=== PATIENT | female | born 1945 | race Caucasian/White ===

== ENCOUNTER 2020-02-22 17:13 | Emergency (ER) | payer MEDICARE, SELFPAY ==
--- NOTE | ~2020-02-22 | XR_ITS ---
EXAMINATION: XR femur RT min 2V INDICATION: Right femur pain TECHNIQUE: Two views of the right femur are obtained on four radiographs. COMPARISON: None available FINDINGS: There is no fracture, dislocation, or subluxation. Bone alignment is normal. Mild osteoarth ritis is noted in the hip and knee. The soft tissues are unremarkable. IMPRESSION: 1. No acute osseous abnormality. Reviewed, dictated and finalized at location A.
--- NOTE | ~2020-02-22 | XR_ITS ---
EXAMINATION: XR hip RT 2V w AP pelvis INDICATION: Right hip pain TECHNIQUE: AP view of the pelvis and two views of the right hip are obtained. COMPARISON: None available FINDINGS: Bone alignment is normal. There is no fracture. Mild osteoarthritis is noted in the hips. T here are phleboliths in the pelvis. The soft tissues are otherwise unremarkable. Moderate lumbar spon dylosis is noted. IMPRESSION: 1. No acute osseous abnormality. Reviewed, dictated and finalized at location A.
--- NOTE | ~2020-02-22 | CT_ITS ---
EXAMINATION: CT hip RT wo con DATE: 02/22/2020 20:41 INDICATION: Right hip pain with flexion and weightbearing TECHNIQUE: Computed tomography (CT) of the right hip was performed without intravenous contrast. The dose-length product (DLP) was 671.76 mGy-cm. Automated exposure control and iterative reconstruction technique were employed. COMPARISON: 11/24/2017 FINDINGS: There is no fracture, dislocation, or subluxation. Bone alignment is normal. Mild lumbar sp ondylosis is noted. The soft tissues are unremarkable. IMPRESSION: 1. No acute osseous abnormality. Reviewed, dictated and finalized at location A.
[2020-02-22 17:27] VITALS: BP 135/78; PULSE 58; RESP 16; TEMP 36.7; O2SAT 96
--- NOTE | 2020-02-22 18:16 | ED.LOWEXIN ---
HPI - Extremity Injury (Lower) General Chief Complaint: Extremity Injury, Lower Stated Complaint: right hip pain Time Seen by Provider: 02/22/20 18:10 Source: patient Mode of arrival: ambulatory Limitations: no limitations History of Present Illness HPI Narrative: This patient is a 74 year old female who presents for evaluation of right hip/thigh pain. PAtient states she turned her body today and she felt a pop in her right hip. She has pain to right hip and into her right thigh. She also states she is unable to bear weight on that leg. She reports tingling to lateral 4 toes. She denies any other injuries. complaint: hip injury Related Data Home Medications Medication Instructions Recorded Confirmed levocetirizine 10 mg PO DAILY 08/28/19 08/28/19 multivitamin [Daily Multi-Vitamin] 1 tablet PO DAILY 08/28/19 08/28/19 oxybutynin chloride 5 mg PO BID 08/28/19 08/28/19 pantoprazole 40 mg PO QAM 08/28/19 08/28/19 Allergies Allergy/AdvReac Type Severity Reaction Status Date / Time codeine Allergy Unknown Vomiting Verified 02/22/20 17:34 Review of Systems Review of Systems: All systems reviewed & are unremarkable except as noted in HPI and below PMFSH Family History Family History (Updated 08/28/19 @ 13:00 by Bernarda Seo RN) Mother Diabetes mellitus Mother Cancer Other Family history of arthritis Hypertension Social History Social History Smoking status: Never smoker Tobacco type: cigarettes Second hand tobacco smoke exposure: Yes Alcohol intake: never Substance use: never Gender identity (if verbalized by the patient): Female Exam Const: General: no acute distress and alert Orientation/consciousness: patient oriented x3 HENMT: Head: normocephalic and atraumatic Eyes: EOM: EOMs intact bilaterally Neck: Neck: normal visual inspection Resp: Effort & Inspection: normal respiratory effort Skin: General skin exam: normal color Rashes: no rashes Neuro: General: patient oriented x3 and moves all extremities Extrem: Other: TTP right lateral hip, unable to actively range at right hip due to pain. strong pedal pulses. Charline to move foot and toes distally. good cap refill Course Reevaluation(s) Reevaluation #1: PAtient states her pain has improved. She reports laying she has no pain. On ambulation assessment , she is able to walk backwards with no pain. She has pain with lifting her foot. She states it feels muscular. She has full rom now actively. Date: 02/22/20 Time: 20:57 Vital Signs Vital signs: Vital Signs Temperature 98.1 F 02/22/20 17:27 Pulse Rate 58 L 02/22/20 17:27 Respiratory Rate 16 02/22/20 17:27 Blood Pressure 135/78 02/22/20 17:27 Pulse Oximetry 96 02/22/20 17:27 Temperature 98.1 F 02/22/20 17:27 Pulse Rate 55 L 02/22/20 19:34 Respiratory Rate 15 02/22/20 19:34 Blood Pressure 136/52 L 02/22/20 19:34 Pulse Oximetry 98 02/22/20 19:34 MDM - Extremity Injury (Lower) Imaging Data Radiologist's impression: ITS Impressions Femur X-Ray 02/22/20 19:05 IMPRESSION: 1. No acute osseous abnormality. Hip/Pelvis X-Ray 02/22/20 19:08 IMPRESSION: 1. No acute osseous abnormality. Hip CT 02/22/20 20:45 IMPRESSION: 1. No acute osseous abnormality. Discharge Plan Discharge Clinical Impression: Other sprain of right hip, initial encounter Patient Disposition: Home, Self-Care Condition: Stable Instructions: Antibiotic Form, Hip Sprain (ED), Hip Pain (ED), Hip Impingement (ED) Additional Instructions: Today you were assessed for right hip sprain. Use crutches as needed. Follow up with your primary care physician or your orthopedic surgeon this week. Prescriptions: New naproxen 500 mg tablet 500 mg PO BID PRN (Reason: pain) Qty: 14 RF: 0 cyclobenzaprine 5 mg tablet 5 mg PO TID PRN (Nichol
[2020-02-22] MEDS: ONDANSETRON INJ 4 MG/2 ML VIAL IV PUSH (18:42)
[2020-02-22] MEDS: MORPHINE SULFATE 4 MG/ML INJ IV PUSH (18:43)
--- NOTE | 2020-02-22 19:12 | PC.NURSE ---
Bedside report to MICHAEL Coyle, to continue care. Dr. Lr at bedside discussing plan of care.
[2020-02-22 19:34] VITALS: BP 136/52; PULSE 55; RESP 15; O2SAT 98
--- NOTE | 2020-02-22 19:35 | PC.NURSE ---
Assumed care of pt at this time. report from MICHAEL De Luna
[2020-02-22] MEDS: KETOROLAC 30 MG/ML VIAL (*BKC) IV PUSH (19:54)
[2020-02-22 21:10] VITALS: BP 142/76; PULSE 58; RESP 16; O2SAT 98
== END 2020-02-22 21:11 | disposition home or self-care (01) ==
PROVIDERS: Emergency Provider General Practice; PCP Nurse Practitioner Family
DX: S73.191A Other sprain of right hip, initial encounter (principal); Z77.22 Contact with and (suspected) exposure to environmental tobacco smoke (acute) (chronic); X58.XXXA Exposure to other specified factors, initial encounter
CPT/HCPCS: 73502; 73552; 73700; 96374; 96375; 99284; J1885; J2270; J2405; J3360

== ENCOUNTER 2020-07-18 10:38 | Outpatient (NON) | payer MEDICARE, SELFPAY ==
[2020-07-18 22:56] LABS: SARS-CoV-2 RNA PCR Negative
== END 2020-07-18 10:39 ==
PROVIDERS: PCP Nurse Practitioner Family; Visit Provider Nurse Practitioner Family
DX: Z20.828 Contact with and (suspected) exposure to other viral communicable diseases (principal); R41.3 Other amnesia; R19.7 Diarrhea, unspecified; R53.83 Other fatigue
CPT/HCPCS: 87635; C9803; U0003

== ENCOUNTER 2020-09-28 16:43 | Observation (INO) | payer MEDICARE, SELFPAY ==
[2020-09-28] VITALS (9 sets, daily range): BP systolic 106–139; BP diastolic 56–79; PULSE 48–63; RESP 13–18; TEMP 36.3; O2SAT 94–99; BMI 30.5; BMI 31.4
--- NOTE | ~2020-09-28 | XR_ITS ---
EXAMINATION: XR chest 2V DATE: 09/28/2020 17:38 INDICATION: Left chest and arm pain TECHNIQUE: PA and lateral views of the chest are obtained. COMPARISON: 08/28/2019 FINDINGS: The lungs are free of acute opacities. There is no pleural effusion or pneumothorax. The ca rdiomediastinal silhouette is normal. There is mild thoracic spondylosis. IMPRESSION: 1. No acute cardiopulmonary abnormality. Reviewed, dictated and finalized at location A. E PRESSER
--- NOTE | 2020-09-28 16:46 | ECG_ITS ---
Measurements Intervals [place] Rate: 58 P: 38 MI: 179 QRS: -2 QRSD: 110 T: 74 QT: 391 QTc: 386 Interpretive Statements SINUS BRADYCARDIA INTRAVENTRICULAR CONDUCTION DELAY DELAYED PRECORDIAL R/S TRANSITION BORDERLINE ST-T WAVE ABNORMALITY- HIGH LATERAL LEADS BASELINE ARTIFACT- I, III, AVR, AVL, AVF BORDERLINE ECG Electronically Signed On 09-29-2020 8:45:52 RAISE DRILLER by Stuart Austin D.O.
[2020-09-28 17:10] LABS: Basophils Percent Auto 0.4 % (0.2-1.2); Eosinophils Absolute Auto 0.2 K/mm3 (0-0.3); Hematocrit 39.9 % (37.0-47.0); Immature Granulocyte Absolute 0.02 K/mm3 (0.00-0.031); Immature Granulocyte Percent A 0.2 % (0-0.5); Lymphocytes Absolute Auto 1.85 K/mm3 (0.9-3.2); Lymphocytes Percent Auto 22.7 % (18.3-44.2); Mean Corpuscular HGB Conc 32.6 g/dl (32-36); Mean Corpuscular Hemoglobin 29.1 pg (26-34); Mean Corpuscular Volume 89.5 fl (80-100); Mean Platelet Volume 11.3 fl (7.4-10.4); Monocytes Absolute Auto 0.4 K/mm3 (0.1-0.6); Monocytes Percent Auto 5.3 % (2.6-8.5); Neutrophils Absolute Auto 5.7 K/mm3 (1.3-6.7); Neutrophils Percent Auto 69.4 % (45.5-73.1); Platelet Count Result 202 k/mm3 (150-375); Red Blood Count 4.46 M/mm3 (4.2-5.4); Red Cell Distribution Width 13.9 % (11.5-14.5); White Blood Count 8.1 K/mm3 (4.5-10.0)
[2020-09-28 17:19] LABS: INR 0.9; Prothrombin Time 12.5 Seconds (11.1-14.7)
[2020-09-28 17:22] LABS: Anion Gap 7 mmol/L (8-16); Blood Urea Nitrogen 28 mg/dL (7-17); Calcium 9.1 mg/dL (8.4-10.2); Carbon Dioxide 28 mmol/L (22-30); Chloride 105 mmol/L (98-107); Estimated CRCL calculation 53 ml/min; Estimated Glomerular Filt Rate > 60; Glucose 108 mg/dL (65-105); Potassium 3.8 mmol/L (3.4-5.0); Sodium 140 mmol/L (137-145)
[2020-09-28 17:33] LABS: Troponin I < 0.012 ng/mL (0.000-0.034)
--- NOTE | 2020-09-28 17:45 | ED.GENADULT ---
HPI - General Adult General Chief complaint: Chest Pain Stated complaint: CP Time Seen by Provider: 09/28/20 16:46 Source: patient Mode of arrival: ambulatory Limitations: no limitations History of Present Illness HPI narrative: HPI narrative: A 74 y/o female presents to the ED with c/o left sided CP that radiated down her arm at 2:30pm then eased. She states after 45 minutes she began feeling a pressure like sensation to the center of her chest and a sore sensation. She denies sharp chest pain with radiation at this time. Pt describes the CP presently as a pressure. She reports a PMHx of cardiac catheterization and coronary stent placement. Pt adds that the cardiac catheterization was 8 years ago in [place]. Pt denies SOB, diaphoresis, N/V. She is a former smoker. Pt is currently prescribed Lisinopril. 07/2019 Taken to component lab tech by Dr Mathew/Gilma for V2-V4 STEMI. Patient did not take aspirin nitro or any other medications prior to arrival. Related Data Home Medications Medication Instructions Recorded Confirmed levocetirizine 10 mg PO DAILY 08/28/19 08/28/19 oxybutynin chloride 5 mg PO BID 08/28/19 08/28/19 hydrochlorothiazide 09/28/20 Allergies Allergy/AdvReac Type Severity Reaction Status Date / Time codeine Allergy Unknown Vomiting Verified 09/28/20 16:50 Review of Systems Review of Systems: Narrative: CONSTITUTIONAL: Denies fever, chills, or sweats. EYES: Denies visual changes, redness, or discharge. ENT: Denies rhinorrhea, congestion, sore throat, or otalgia. CARDIOVASCULAR: Reports chest pain and pressure, denies palpitations, or edema. RESPIRATORY: Denies cough or dyspnea. GASTROINTESTINAL: Denies abdominal pain, nausea, vomiting, or diarrhea. GENITOURINARY: Denies dysuria or hematuria. SKIN: Denies rash or itching. MUSCULOSKELETAL: Denies back pain, joint pain, or myalgia. NEUROLOGIC: Denies headache, numbness, dizziness, or weakness. PSYCHIATRIC: Denies anxiety or depression. [facility] Past Medical History Medical History (Updated 09/28/20 @ 19:34 by Brennan Maya DO) Anemia Anxiety Arthritis Collar bone fracture CPAP (continuous positive airway pressure) dependence Depression Finger fracture, left GERD (gastroesophageal reflux disease) History of blood transfusion HTN (hypertension) Kidney stones Migraines Pancreatic cancer Pelvis fracture Pneumonia Post-menopausal Rib fracture Shingles Sleep apnea Ulcer Uterine fibroid UTI (urinary tract infection) Surgical History Surgical History History of arthroscopic knee surgery Bilateral History of cardiac catheterization History of cholecystectomy History of coronary artery stent placement History of hysterectomy History of nephrectomy History of pancreatic surgery Whipple History of tonsillectomy History of tubal ligation Hx of breast reduction, elective Hx of prior ablation treatment For heart arrhythmia Family History Family History (Updated 08/28/19 @ 13:00 by Bernarda Seo RN) Mother Diabetes mellitus Mother Cancer Other Family history of arthritis Hypertension Social History Social History Smoking status: Never smoker Tobacco type: cigarettes Second hand tobacco smoke exposure: Yes Alcohol intake: never Substance use: never Gender identity (if verbalized by the patient): Female Exam Narrative: Exam Narrative: GENERAL: Well-appearing, well-nourished, and in no acute distress. Patient smiling and talking normally without signs of distress or discomfort. HEAD: Normocephalic, atraumatic. EYES: PERRLA and EOMI. ENT: Nares clear, no rhinorrhea or epistaxis. Mucous membranes moist. Oropharynx without tonsillar hypertrophy exudate or other lesions. Bilateral TMs pearly paulino nonbulging NECK: Supple. No adenopathy or masses. CHEST: Reports partial reproduction of chest discomfort with palpa
--- NOTE | 2020-09-28 19:25 | PM.IMHP ---
H&P: HPI History of Present Illness Date/Time: 09/28/20 19:25 Chief Complaint: Left arm pain, chest pain Narrative: Olinda García is a 74 year old female with past medical history of takotsubo syndrome, anxiety, history of stage I pancreatic cancer status post resection, hypertension who presents to the ED with complaints of left upper extremity pain and chest pressure. Patient was sitting at home watching TV when all of sudden she felt left arm pain and subsequently chest pressure with the whole episode lasting 4-5 minutes. Patient never had this left arm pain before and was concerned about her heart. Patient has similar presentation last year 08/28/2019 but that time presented as STEMI and had a cardiac catheterization by Dr. Piedra. She did not have left arm pain that time. EKG at that time showed Q-waves in V1 to V4 with ST elevations. Left Heart Catheterization showed large left main coronary, left circumflex artery had 20% stenosis, right coronary artery is large and dominant. LV angiogram showed stress-induced cardiomyopathy with apical ballooning. Patient was diagnosed with stress-induced cardiomyopathy and minimal coronary irregularities. She was started on GENEVIEVE-inhibitor and beta-gerald. The beta-gerald was stopped because of bradycardia. That episode was attributed to severe stress from losing a contract at work, working for [employer]. Of note, patient states she also had a stent placed 7-8 years ago however there was no stent seen on the catheterization and is not on any medications for coronary disease, I believe she may have had a catheterization without stent. Currently patient has lot of stress because she was laid off August 30, 2020 as her job went remote. She has a very distant smoking history when she was age 16 for 5 months. Patient states even last year she never felt physically stressed no physical symptoms of sweats, tachycardia, palpitations, anxiety, dyspnea. She thinks maybe her body felt stress with a takotsubo syndrome diagnosis. She does meditate which helps her anxiety has been skipping it over last 2 months. She currently lives with her son for last 2 years. She is very active still drives. Patient has a history of pancreatic cancer that was stage I that was treated with resection only. In the ED: Troponin negative, EKG showed normal sinus rhythm. Cardiology recommends admitting for observation. Patient will be observed in the chest pain center. Review of Systems Review of Systems: Narrative: Constitutional: No Fever, No Chills, No Night Sweats. Endorses generalized ache. ENT/Mouth: No Hearing Changes, No Ear Pain, No Nasal Congestion, No Sinus Pain, No Hoarseness, No sore throat, No Rhinorrhea, No Swallowing Difficulty Eyes: No Eye Pain, No Redness, No Vision Changes Cardiovascular: No Palpitations, No Dyspnea on Exertion, No Orthopnea, No Claudication, No Edema. Chest soreness and pressure. Respiratory: No Cough, No Sputum, No Wheezing, No Shortness of Breath Gastrointestinal: No Nausea, No Vomiting, No Diarrhea, No Constipation, No Abdominal Pain, No Heartburn, No Hematochezia, No Melena Genitourinary: No Dysuria, No Urinary Frequency, No Hematuria, No Urinary Incontinence, No Urgency Musculoskeletal: No Arthralgias, No Myalgias, No Joint Swelling, No Joint Stiffness, No Back Pain. Left arm pain which has subsided. Skin: No Skin Lesions, No Pruritis, No Hair Changes Neuro: No Weakness, No Numbness, No Paresthesias, No Loss of Consciousness, No Syncope, No Dizziness, No Headache. Psych: No Anxiety/Panic, No Depression, No Insomnia. Stress from loss of work. Heme: No Bruising, No Bleeding Lymph: No Adenopathy Endocrine: No Polyuria, No Polydipsia, No Temperature Intolerance PMFSH Past Medical History Medical History Anemia Anxiety Arthritis Collar bone fracture CPAP (continuous positive airway pressure) dependence Depression F
[2020-09-28 20:16] LABS: Troponin I < 0.012 ng/mL (0.000-0.034)
[2020-09-28 23:16] LABS: Troponin I < 0.012 ng/mL (0.000-0.034)
[2020-09-29] VITALS (10 sets, daily range): BP systolic 107–124; BP diastolic 59–70; PULSE 50–88; RESP 20; TEMP 36.5; O2SAT 96–99
--- NOTE | 2020-09-29 | ECHO_ITS ---
Patient Info Name: Olinda Reza [facility] Age: 74 years : 1945 Gender: Female Ht: 66 in Wt: 194 lbs BSA: 2.05 m2 HR: 58 bpm BP: 124 / 59 mmHg Technical Quality: Good Exam Date: 09/29/2020 11:03 AM Exam Location: [facility] Pulmonary Exam Room: 204 Patient Status: Inpatient Admit Date: 09/28/2020 Staff Ordering Physician: Jennifer Piedra MD Clip Loading Machine Adjuster: Hien Martin RDCS Attending Provider: Brennan Maya DO Referring Physician: Dorothea LEO; Exam Type: CA echo doppler color flow Study Info Indications - chest pain Complete two-dimensional, color flow and Doppler transthoracic echocardiogram is performed. Summary 1. Complete two-dimensional, color flow and Doppler transthoracic echocardiogram is performed. 2. Left ventricular systolic function is normal, estimated at 60-65%. 3. The left ventricular diastolic function is grade I diastolic dysfunction. 4. There is mild mitral valve regurgitation. 5. There is mild tricuspid valve regurgitation. 6. No pulmonary hypertension, estimated pulmonary arterial systolic pressure is 24 mmHg. 7. There is trace pulmonic regurgitation. Left Ventricle Left ventricular chamber dimension is normal. Left ventricular systolic function is normal, estimated at 60-65%. There is no increased left ventricular wall thickness. Left ventricular septal wall motion is normal. The left ventricular diastolic function is grade I diastolic dysfunction. Right Ventricle Right ventricular chamber dimension is normal. Right ventricular systolic function is normal. Left Atria Left atrial chamber dimension is normal. Right Atria Right atrial chamber dimension is normal. Atrial Septum Intact interatrial septum visualized by color flow imaging. Aortic Valve The aortic valve is trileaflet. There is no aortic valve sclerosis. There is no aortic valve stenosis. There is no aortic valve regurgitation. Pulmonic Valve The pulmonic valve is normal. There is no pulmonic valve stenosis. There is trace pulmonic regurgitation. Mitral Valve The mitral valve has normal leaflets. There is no mitral valve stenosis. There is mild mitral valve regurgitation. Tricuspid Valve The tricuspid valve leaflets are normal. There is no significant tricuspid valve stenosis. There is mild tricuspid valve regurgitation. No pulmonary hypertension, estimated pulmonary arterial systolic pressure is 24 mmHg. Pericardium/Pleural The pericardium appears normal. There is no pericardial effusion. Inferior Vena Cava Normal inferior vena cava with >50% collapse upon inspiration consistent with normal right atrial pressure, 5 mmHg. Aorta The aortic root size at the sinus of Valsalva is normal. The prox ascending aorta size is normal. Left Ventricular Outflow Tract Name Value Normal LVOT 2D LVOT Diameter 2.0 cm LVOT Doppler LVOT Peak Gradient 4 mmHg LVOT Mean Gradient 3 mmHg LVOT VTI 24 cm LVOT VTI/AV VTI Ratio 0.8 LVOT Stroke Vo
--- NOTE | 2020-09-29 00:42 | ADMGEN ---
This patient, Olinda García, was admitted to IMU Room 204-01. Patient/family oriented to hospital policies and general routines including ID bracelet, bed and alarms, visiting hours, pain management, procedures, bathroom and other care routines, personal items, smoking policy, room service/diet, and visiting hours. Information on how to activate the Rapid Response Team has been discussed. Patient/Family are encouraged to report perceived risks to care and to ask questions if they do not understand what they are told or what they should do.
[2020-09-29 05:21] LABS: Cholesterol 197 mg/dL (0-200); HDL Direct 26 mg/dL; Triglycerides 455 mg/dL (<150)
[2020-09-29 05:32] LABS: LDL Cholesterol Direct 96 mg/dL
--- NOTE | 2020-09-29 08:55 | PM.CNCAR ---
Assessment and Plan Assessment and plan (1) Nonexertional chest pain: Code(s): R07.89 - Other chest pain Status: Acute Assessment and Plan: Patient presents to the hospital with sudden onset of chest pain. This was similar to what happened a year ago and at that time she was found to have stress-induced cardiomyopathy with ejection fraction 45% that improved after 1 month to 70%. Troponins x3 negative, no ischemic changes on EKG. The echocardiogram to assess. (2) PVCs (premature ventricular contractions): Code(s): I49.3 - Ventricular premature depolarization Status: Acute Assessment and Plan: Noticed frequent PVCs on the telemetry. Order echocardiogram to assess. (3) HTN (hypertension): Qualifiers: Hypertension type: essential hypertension Qualified Code(s): I10 - Essential (primary) hypertension Code(s): I10 - Essential (primary) hypertension Status: Acute Assessment and Plan: Continue home doses of hydrochlorothiazide and lisinopril. Check serum magnesium. History of Present Illness History of Present Illness Consult date/time: Date of service: 09/29/20 08:55 Requesting physician: Comfort Paredes PA-C Consult reason: chest pain Reason For Visit: chest pain Narrative: This 74-year-old female with past medical history of hypertension, pancreatic cancer status post resection. She does have a history of coronary stent 8 years ago in [place]. She also presented to [facility] in July 2019 with chest pain and STEMI and at that time was found to have stress-induced cardiomyopathy. At that time ejection fraction 45% and a repeat echo after a month shows ejection fraction 70%. She comes to the hospital because of chest pain and left arm pain that started yesterday in the afternoon while watching TV. Pain was constant with no aggravating or relieving factors. Associated with some shortness of breath but denies any limb edema, dizziness, syncope. She lost her job at the beginning of August and she states that she is not too stressed about it. Troponins x3 negative, EKG reviewed myself looks unremarkable, chest x-ray reviewed myself looks unremarkable, Review of Systems Constitutional: Constitutional: Denies chills, Denies fever(s) and Denies poor appetite Eyes: Eyes: Denies eye discharge, Denies loss of vision, Denies eye pain and Denies photophobia ENT: Denies dizziness, Denies epistaxis, Denies nasal congestion and Denies sore throat Cardiovascular: Cardiovascular: Reports chest pain, Denies syncope, Denies pedal edema, Denies leg edema, Denies palpitations, Denies dyspnea, Denies dyspnea on exertion and Denies orthopnea Respiratory: Respiratory: Denies cough, Reports dyspnea, Denies dyspnea on exertion and Denies wheezing Gastrointestinal: Gastrointestinal: Denies abdominal pain, Denies diarrhea, Denies nausea and Denies vomiting Genitourinary: Genitourinary: Denies hematuria, Denies genital lesions and Denies dysuria Musculoskeletal: Musculoskeletal: Denies arthralgias, Denies joint swelling and Denies numbness Integumentary/Breasts: Skin/Breast: Denies pruritus and Denies rash Neurologic: Denies dizziness, Denies syncope, Denies loss of vision and Denies numbness Psychiatric: Psychiatric: Denies anxiety and Denies depression Endocrine: Endocrine: Denies cold intolerance, Denies heat intolerance and Denies palpitations Hematologic/Lymphatic: Hematologic/Lymphatic: Denies easy bleeding and Denies easy bruising Allergic/Immunologic: Allergic/Immunologic: Denies urticaria and Denies wheezing [facility] Past Medical History Medical History Anemia Anxiety Arthritis Collar bone fracture CPAP (continuous positive airway pressure) dependence Depression Finger fracture, left GERD (gastroesophageal reflux disease) History of blood transfusion HTN (hypertension) Kidney stones Migraines Pancr
[2020-09-29 09:54] LABS: Magnesium 2.3 mg/dL (1.6-2.3)
[2020-09-29] MEDS: OXYBUTYNIN CHLORIDE 5 MG TABLET PO (10:05)
[2020-09-29] MEDS: ASPIRIN 81 MG ENTERIC TABLET PO (10:05)
[2020-09-29] MEDS: hydroCHLOROthiazide 25 MG TABLET PO (10:05)
[2020-09-29] MEDS: LORATADINE 10 MG TABLET PO (10:05)
[2020-09-29] MEDS: lisinopriL 20 MG TABLET PO (10:05)
[2020-09-29] MEDS: MULTIVIT/MIN/PREN/FOL AC/IRON TABLET 1 TAB PO (10:05)
--- NOTE | 2020-09-29 15:10 | PM.DS ---
DS: Admitting Diagnosis Admitting Diagnosis Admitting Diagnosis: Left arm pain, chest pain DS: Discharge Diagnosis Discharge Diagnosis (1) Nonexertional chest pain: Code(s): R07.89 - Other chest pain Status: Acute Assessment and Plan: -patient has lots of stress, lost her job 08/30, last year had stress from work that led to takotsubo cardiomyopathy presenting as a STEMI -cardiac catheterization 08/28/2019 showed stress-induced cardiomyopathy and minimal coronary disease 20% stenosis in left circumflex artery -checking lipid panel -trending troponins overnight, continue telemetry monitoring -consult cardiology -stop beta-gerald, patient has not been taking Coreg -patient is not on any medications for stress right now. She manages with meditation. Patient has no other clinical signs of stress. (2) HTN (hypertension): Qualifiers: Hypertension type: essential hypertension Qualified Code(s): I10 - Essential (primary) hypertension Code(s): I10 - Essential (primary) hypertension Status: Acute Assessment and Plan: -continue home lisinopril and hydrochlorothiazide (3) Bradycardia: Code(s): R00.1 - Bradycardia, unspecified Status: Acute Assessment and Plan: -patient was previously on beta-blockers which she has stopped taking. Will continue to stop beta-gerald. -will watch on telemetry. (4) Anxiety: Code(s): F41.9 - Anxiety disorder, unspecified Status: Acute Assessment and Plan: -patient has anxiety on stress from work. Lost her job August 30 which may be playing a role. (5) Stress-induced cardiomyopathy: Onset Date: 08/28/19 Code(s): I51.81 - Takotsubo syndrome Status: Acute Assessment and Plan: -history of stress-induced cardiomyopathy last year, similar story this time around as well with new symptom of left arm pain DS: Summary Hospital Course Reason for hospitalization: Chief Complaint: Left arm pain, chest pain Narrative: Olinda García is a 74 year old female with past medical history of takotsubo syndrome, anxiety, history of stage I pancreatic cancer status post resection, hypertension who presents to the ED with complaints of left upper extremity pain and chest pressure. Patient was sitting at home watching TV when all of sudden she felt left arm pain and subsequently chest pressure with the whole episode lasting 4-5 minutes. Patient never had this left arm pain before and was concerned about her heart. Patient has similar presentation last year 08/28/2019 but that time presented as STEMI and had a cardiac catheterization by Dr. Piedra. She did not have left arm pain that time. EKG at that time showed Q-waves in V1 to V4 with ST elevations. Left Heart Catheterization showed large left main coronary, left circumflex artery had 20% stenosis, right coronary artery is large and dominant. LV angiogram showed stress-induced cardiomyopathy with apical ballooning. Patient was diagnosed with stress-induced cardiomyopathy and minimal coronary irregularities. She was started on GENEVIEVE-inhibitor and beta-gerald. The beta-gerald was stopped because of bradycardia. That episode was attributed to severe stress from losing a contract at work, working for [employer]. Of note, patient states she also had a stent placed 7-8 years ago however there was no stent seen on the catheterization and is not on any medications for coronary disease, I believe she may have had a catheterization without stent. Currently patient has lot of stress because she was laid off August 30, 2020 as her job went remote. She has a very distant smoking history when she was age 16 for 5 months. Patient states even last year she never felt physically stressed no physical symptoms of sweats, tachycardia, palpitations, anxiety, dyspnea. She thinks maybe her body felt stress with a takotsubo syndrome diagnosis. She does meditate which helps her anxiety has
== END 2020-09-29 17:41 | disposition home or self-care (01) ==
LOC: ANHED 19:08 → ANHIMU 23:42
PROVIDERS: Internal Medicine Cardiovascular Disease; Admitting Provider Student in an Organized Health Care Education/Training Program; Emergency Provider Emergency Medicine; PCP Nurse Practitioner Family; Visit Provider Family Medicine
DX: R07.89 Other chest pain (principal); I51.81 Takotsubo syndrome; F41.9 Anxiety disorder, unspecified; Z85.07 Personal history of malignant neoplasm of pancreas; I10 Essential (primary) hypertension; R00.1 Bradycardia, unspecified
CPT/HCPCS: 36415; 71046; 80048; 80061; 83735; 84484; 85025; 85610; 85730; 93005; 93306; 99285; A9270; G0378

== ENCOUNTER 2021-02-21 21:23 | Observation (INO) | payer MEDICARE, SELFPAY ==
[2021-02-21] VITALS (18 sets, daily range): BP systolic 143–168; BP diastolic 70–92; PULSE 45–61; RESP 12–21; TEMP 36.2–36.7; O2SAT 92–98; BMI 30.2
--- NOTE | ~2021-02-21 | XR_ITS ---
EXAMINATION: XR chest 2V 02/21/2021 21:39 INDICATION: Chest pain and hypertension PROCEDURE: PA and lateral views of the chest COMPARISON: Comparison to multiple prior studies sequentially, with oldest reviewed study dated 01/2018. FINDINGS: The lungs are clear. The cardiomediastinal silhouette is within normal limits. There are no pleural effusions. There is no pneumothorax suspected. There is a healed left clavicular fractur e. IMPRESSION: 1: NO ACUTE CARDIOPULMONARY DISEASE. Reviewed, dictated and finalized at location A.
--- NOTE | 2021-02-21 21:28 | ECG_ITS ---
Measurements Intervals [place] Rate: 54 P: 58 SD: 178 QRS: 5 QRSD: 102 T: 47 QT: 443 QTc: 422 Interpretive Statements SINUS BRADYCARDIA WITH SINUS ARRHYTHMIA BORDERLINE ST ABNORMALITY- HIGH LATERAL LEADS BORDERLINE ECG Electronically Signed On 02-22-2021 6:56:29 CDT by Stuart Austin D.O.
[2021-02-21 21:52] LABS: Basophils Percent Auto 0.4 % (0.2-1.2); Eosinophils Absolute Auto 0.2 K/mm3 (0-0.3); Hematocrit 39.3 % (37.0-47.0); Hemoglobin 12.5 g/dL (12.0-15.0); Immature Granulocyte Absolute 0.04 K/mm3 (0.00-0.031); Immature Granulocyte Percent A 0.4 % (0-0.5); Lymphocytes Absolute Auto 2.14 K/mm3 (0.9-3.2); Lymphocytes Percent Auto 23.9 % (18.3-44.2); Mean Corpuscular HGB Conc 31.8 g/dl (32-36); Mean Corpuscular Volume 88.1 fl (80-100); Mean Platelet Volume 10.9 fl (7.4-10.4); Monocytes Absolute Auto 0.6 K/mm3 (0.1-0.6); Monocytes Percent Auto 6.9 % (2.6-8.5); Neutrophils Absolute Auto 5.9 K/mm3 (1.3-6.7); Neutrophils Percent Auto 66.4 % (45.5-73.1); Platelet Count Result 193 k/mm3 (150-375); Red Blood Count 4.46 M/mm3 (4.2-5.4); Red Cell Distribution Width 13.9 % (11.5-14.5)
[2021-02-21 22:01] LABS: Anion Gap 8 mmol/L (8-16); Blood Urea Nitrogen 28 mg/dL (7-17); Calcium 9.6 mg/dL (8.4-10.2); Carbon Dioxide 27 mmol/L (22-30); Chloride 107 mmol/L (98-107); Estimated CRCL calculation 52 ml/min; Estimated Glomerular Filt Rate > 60; Glucose 101 mg/dL (65-105); Potassium 3.8 mmol/L (3.4-5.0); Sodium 142 mmol/L (137-145)
[2021-02-21 22:02] LABS: INR 0.9; Prothrombin Time 12.7 Seconds (11.1-14.7)
[2021-02-21 22:03] LABS: Partial Thromboplastin Time 26.8 SECONDS (22.3-36.8)
--- NOTE | 2021-02-21 22:08 | ED.CHESTPAIN ---
HPI - Chest Pain General Chief Complaint: Chest Pain Stated Complaint: cp Time Seen by Provider: 02/21/21 21:32 Source: patient, RN notes reviewed and old records reviewed Mode of arrival: EMS Limitations: no limitations History of Present Illness HPI narrative: This is a 75 year old female with history of hypertension, CAD, stents who presents for evaluation of left chest pain. She states she was watching tv when she developed left chest pain. She describes pain as a thud that occurred twice. Each episode lasted briefly. She reports associated dizziness and shortness of breath. She denies diaphoresis, vomiting. She states that pain has resolved. Her stock repairer is Dr. [facility]ied[facility]. She reports she had stents placed 2 years ago . Pertinent past history: coronary artery disease and prior MA Related Data Home Medications Medication Instructions Recorded Confirmed levocetirizine 10 mg PO DAILY 08/28/19 01/26/21 oxybutynin chloride 5 mg PO TID 08/28/19 01/26/21 hydrochlorothiazide 25 mg PO QAM 09/28/20 01/26/21 [id number] 1 tablet PO QAM 09/28/20 01/26/21 carvedilol 3.125 mg tablet 3.125 mg PO BID tablet 01/26/21 01/26/21 magnesium 200 mg tablet 200 mg PO DAILY 01/26/21 01/26/21 pantoprazole 40 mg tablet,delayed 40 mg PO QAM 01/27/21 release Allergies Allergy/AdvReac Type Severity Reaction Status Date / Time codeine Allergy Unknown Vomiting, Verified 01/27/21 10:02 itching, swelling Review of Systems Review of Systems: All systems reviewed & are unremarkable except as noted in HPI and below PMFSH Past Medical History Medical History (Updated 02/21/21 @ 23:06 by Radha Lr MD) Anemia Anxiety Arthritis Collar bone fracture Congestion of nasal sinus CPAP (continuous positive airway pressure) dependence Depression Finger fracture, left GERD (gastroesophageal reflux disease) History of blood transfusion HTN (hypertension) IBS (irritable bowel syndrome) Kidney stones Migraines WHITNEY (obstructive sleep apnea) Osteoporosis Pancreatic cancer Pelvis fracture Pneumonia Post-menopausal Rib fracture Shingles Sleep apnea Ulcer Uterine fibroid UTI (urinary tract infection) Wears glasses Weight gain Surgical History Surgical History History of arthroscopic knee surgery Bilateral History of cardiac catheterization History of cholecystectomy History of coronary artery stent placement History of hysterectomy History of nephrectomy History of pancreatic surgery Whipple History of tonsillectomy History of tubal ligation Hx of breast reduction, elective Hx of prior ablation treatment For heart arrhythmia Family History Family History (Updated 02/21/21 @ 23:47 by Cha Comer RN) Mother Diabetes mellitus Colon cancer Family history of arthritis Grandparent Hypertension Other Cancer Social History Social History (Updated 01/26/21 @ 10:32 by Cha Angel MA) Social History: Very active, lives with son. Meditates to help with stress. 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
[2021-02-21 22:13] LABS: Troponin I < 0.012 ng/mL (0.000-0.034)
[2021-02-21 22:14] LABS: Alanine Aminotransferase 24 U/L (4-35); Albumin Level 4.2 g/dL (3.5-5.1); Alkaline Phosphatase 80 U/L (38-126); Aspartate Amino Transferase 31 U/L (14-36); Bilirubin,Total 0.8 mg/dL (0.2-1.3); Lipase 50 U/L (23-300)
[2021-02-21] MEDS: ASPIRIN 81 MG CHEWABLE TABLET 324 MG PO (22:18)
--- NOTE | 2021-02-21 23:05 | PC.NURSE ---
This patient to be admitted to IMU room 213. SBAR faxed to IMU department at 2300 p.m.
[2021-02-22] VITALS (8 sets, daily range): BP systolic 133–156; BP diastolic 63–78; PULSE 46–71; RESP 16; TEMP 36.4–36.6; O2SAT 91–96
[2021-02-22 00:54] LABS: Troponin I < 0.012 ng/mL (0.000-0.034)
--- NOTE | 2021-02-22 00:58 | ADMGEN ---
This patient, Olinda García, was admitted to IMU Room 213-01 at 2330 pm from the ED. Patient/family oriented to hospital policies and general routines including ID bracelet, bed and alarms, visiting hours, pain management, procedures, bathroom and other care routines, personal items, smoking policy, room service/diet, and visiting hours. Information on how to activate the Rapid Response Team has been discussed. Patient/Family are encouraged to report perceived risks to care and to ask questions if they do not understand what they are told or what they should do.
--- NOTE | 2021-02-22 01:00 | PC.NURSE ---
Report received at 2307 p.m. 02-21-2021 from MICHAEL Sapp in the ED through telephone. All questions answered and plan of care reviewed. This patient to be admitted into IMU 213.
[2021-02-22 04:11] LABS: Troponin I < 0.012 ng/mL (0.000-0.034)
--- NOTE | 2021-02-22 07:32 | ECG_ITS ---
Measurements Intervals [place] Rate: 45 P: 66 [place]: 200 QRS: 21 QRSD: 102 T: 10 QT: 457 QTc: 397 Interpretive Statements SINUS BRADYCARDIA VENTRICULAR PREMATURE COMPLEX DELAYED PRECORDIAL R/S TRANSITION BORDERLINE ST-T WAVE ABNORMALITY- ANTEROLAT/INF LEADS BASELINE ARTIFACT- I, II, III, AVR, AVL, AVF ABNORMAL ECG Electronically Signed On 02-22-2021 8:47:45 CDT by Stuart Austin D.O.
[2021-02-22] MEDS: NITROGLYCERIN SL 0.4 MG TABLET SUBLINGUAL (07:37)
--- NOTE | 2021-02-22 08:07 | PM.IMHP ---
H&P: HPI History of Present Illness Date/Time: 02/22/21 08:07 Chief Complaint: Chest pain Narrative: Date of admission: 02/21/21 Date of service: 02/22/21 Olinda García is a 75 year old female with a history of CAD with remote history of PCI, takotsubo cardiomyopathy, anemia, WHITNEY on CPAP, remote history of pancreatic cancer s/p resection, and HTN who presented to the emergency department on 02/21/21 with complaints of chest pain. She was sitting at home yesterday evening watching TV when she had an episode that she describes as something squeezing her heart that lasted for several seconds. Just several seconds later, she had a second episode lasting a similar duration. She denied any associated arm pain, jaw pain, dizziness, lightheadedness, shortness of breath, nausea, vomiting, diaphoresis, anxiety. This did make her quite concerned given her cardiac history, therefore she felt she needed to seek emergent evaluation. Upon arrival to the ED, her blood pressure was slightly elevated at 168/92, additional vital signs stable, CBC and BMP unremarkable, troponin negative, and CXR showed no acute cardiopulmonary disease. At the time of my evaluation, her pain has resolved entirely. She is feeling back to her usual state of health. Cardiac history: She is established with vertical borer Dr. Piedra. She underwent cardiac catheterization most recently in July 2019 with no significant obstructive coronary disease and was felt to have takotsubo cardiomyopathy. She had an arteriogram during that hospitalization as well. She also underwent cardiac catheterization in 2018 with no obstructive coronary artery disease. Last echocardiogram was 09/29/20 with normal EF of 60-65%. I do not see history of any recent stents in this computer system and it is documented she had a stent placed in 2007 in [place]. She is being admitted to the hospitalist service for observation. Supervising physician for this history and physical is Dr. Issac Cazares. Review of Systems Review of Systems: Narrative: All systems reviewed with pertinent positives and negatives as per HPI. Additionally, patient denies shortness breath, cough, chest pain. No nausea, vomiting, fever, or chills. Denies dizziness or lightheadedness. She reports regular bowel movements. Denies any urinary symptoms. She reports frequent joint pain and is scheduled to have a left knee replacement in March. She lives anactive lifestyle and typically walks about 5 miles per day, though this has been diminished given her joint pain. She denies dyspnea on exertion. [facility] Past Medical History Medical History (Updated 02/22/21 @ 09:26 by Priscila Tejada PA-C) Anemia Anxiety Arthritis Collar bone fracture Coronary artery disease Depression Finger fracture, left GERD (gastroesophageal reflux disease) History of blood transfusion HTN (hypertension) IBS (irritable bowel syndrome) Kidney stones Migraines WHITNEY (obstructive sleep apnea) Osteoporosis Pancreatic cancer Pelvis fracture Post-menopausal Rib fracture Shingles Ulcer Uterine fibroid Surgical History Surgical History (Updated 02/22/21 @ 10:23 by Priscila Tejada PA-C) History of arthroscopic knee surgery Bilateral History of cardiac catheterization History of cholecystectomy History of coronary artery stent placement History of hysterectomy History of pancreatic surgery Whipple History of tonsillectomy History of tubal ligation Hx of breast reduction, elective Hx of prior ablation treatment For heart arrhythmia Family History Family History (Updated 02/22/21 @ 10:24 by Priscila Tejada PA-C) Mother Colon cancer Heart disease Hyperlipidemia Grandparent Hypertension Father Unknown family medical history Social History Social History (Updated 02/22/21 @ 10:27 by Priscila Tejada PA-C) Social History: Ms. García lives at home. Her son recently moved in with her. She is independent in her daily activ
--- NOTE | 2021-02-22 08:59 | PM.CNCAR ---
Assessment and Plan Additional Plan 75-year-old lady with: Momentary episodes of fleeting chest pain that occurred last night while she was watching television. This type of symptom is highly atypical and not suggestive of myocardial ischemia. Patient's objective data ECG and biomarkers show no evidence of acute coronary syndrome. At this point I do not believe she needs further ischemia evaluation and can be discharged. It is certainly bit curious that she provides a clear history of having a coronary stent procedure done while there is angiographically no visible stent material in her coronary arteries. About the time when she describes having this done there was early interest and availability of bioabsorbable stents. It is certainly possible that she had a device like this deployed in [place] but we of course do not have those records and we do not need to keep her in the hospital awaiting any of that information. She does follow up regularly with Dr. Piedra in our office and we will verify that she has appropriate follow-up scheduled. Edil Lyons MD [facility] History of Present Illness History of Present Illness Consult date/time: 02/22/21 08:59 Consult reason: chest pain Reason For Visit: chest pain Narrative: This is a 75-year-old lady I am seeing at the request of the hospitalist this morning because of chest pain. She is known to Dr. Piedra of our practice and by report has history of coronary artery disease with a remote history of PCI. She was in her usual state of which he considers to be fairly good health when yesterday evening she was watching television at home at about 8:00 p.m. she had 2 episodes of chest pain she describes this as a sudden intense central chest discomfort that was a throbbing like sensation and she had this symptom 2 occasions and it lasted each time for 3 or 4 seconds and then subsided. There was no radiation of this pain to any other location there was no associated nausea vomiting or diaphoresis. She otherwise has been doing well she does not exercise regularly per se but she does lead an active lifestyle and has not noticed that walking distances or any other physical activity is provoking any sort of chest pain. She does not have any sense of palpitations orthopnea PND or accumulating edema. She has never experienced a syncopal episode. The patient provides a history of chest pain incident about a decade ago or slightly more than that while she was visiting family in [place]. She states that she was hospitalized and was in the hospital for something like 5-7 days she was evaluated in the research laboratory technician and eventually had a stent procedure performed. She does not have any records of that and had no problems recovering from that procedure. She visited [facility] here in 2019 with an episode of chest pain. Because of the symptoms she was brought back to the research laboratory technician angina and he underwent follow-up angiography in 2019. She was found to have a patent coronary arteries at that time and region of apical ballooning was given the diagnosis of stress-induced takotsubo cardiomyopathy and was followed in the office. She continues to see Dr. Piedra saw him as recently as August at which time she was doing well. In the emergency room last night her 12 lead ECG was completely normal. Following admission she had a series of troponin levels done and they were all also within normal limits. I did personally review her angiogram from 2019. Her coronary arteries are nicely patent. There was some mild plaquing in the proximal circumflex and there was also some minimal luminal irregularity in the mid RCA. Interestingly I did not see any sort of visible stent material in any of her coronary arteries. Review of Systems Constitutional: Constitutional: Reports no additional constitutional complaints Eyes: Eyes: Reports no additional eye complaints ENT: Reports system reviewed and no additional complaints, except as documen
[2021-02-22] MEDS: ASPIRIN 81 MG CHEWABLE TABLET PO (10:40)
--- NOTE | 2021-02-22 15:45 | PM.DS ---
DS: Admitting Diagnosis Admitting Diagnosis Admitting Diagnosis: Nonexertional chest pain DS: Discharge Diagnosis Discharge Diagnosis (1) Nonexertional chest pain: Code(s): R07.89 - Other chest pain Status: Acute Assessment and Plan: Intermittent chest pain occurred while at rest watching TV. Troponins negative. EKG reviewed. Acute coronary syndrome was not suspected. Symptoms resolved. She was seen in consultation by cardiology. No need for further ischemic evaluation felt to be needed. She will continue her scheduled follow-up with her computer hardware designer, Dr. Piedra. (2) Coronary artery disease: Code(s): I25.10 - Atherosclerotic heart disease of [place] coronary artery without angina pectoris Status: Acute Assessment and Plan: With remote history of PCI. She had been instructed to take aspirin 81 mg daily but has not been on for several weeks. Aspirin was restarted and prescription provided. Outpatient cardiology follow-up as described above. (3) HTN (hypertension): Qualifiers: Hypertension type: essential hypertension Qualified Code(s): I10 - Essential (primary) hypertension Code(s): I10 - Essential (primary) hypertension Status: Acute Assessment and Plan: Blood pressure reviewed and remained stable. Continue low dose coreg, lisinopril, and HCTZ DS: Summary Hospital Course Reason for hospitalization: Chest pain Hospital Course: Date of admission: 02/21/2021 Date of discharge: 02/22/2021 Olinda García is a 75 year old female with a history of CAD with remote history of PCI, takotsubo cardiomyopathy, anemia, WHITNEY on CPAP, remote history of pancreatic cancer s/p resection, and HTN who presented to the emergency department on 02/21/21 with complaints of chest pain. She was sitting at home yesterday evening watching TV when she had an episode that she describes as something squeezing her heart that lasted for several seconds. Just several seconds later, she had a second episode lasting a similar duration. She denied any associated arm pain, jaw pain, dizziness, lightheadedness, shortness of breath, nausea, vomiting, diaphoresis, anxiety. Upon arrival to the ED, her blood pressure was slightly elevated at 168/92, additional vital signs stable, CBC and BMP unremarkable, troponin negative, and CXR showed no acute cardiopulmonary disease. She was admitted to the hospitalist service for further evaluation and management and was seen in consultation by cardiology. Please see above for further details. Her cardiac history was thoroughly reviewed with outline as per H&P. Her symptoms resolved entirely. No further ischemic workup was felt to be warranted. She will follow-up with her computer hardware designer. She was feeling much better and was comfortable with return home, where she lives with her son. Given her overall improvement, she was determined to no longer require inpatient care and was felt to be stable for discharge. Consulting specialists in agreement. We discussed worrisome signs and symptoms for which to return and she was educated on her medications. She was discharged in hemodynamically stable condition on 02/22/2021. Status at Discharge Functional status at discharge: independent ambulation Overall status at discharge: patient is back to baseline Time Spent with Patient Time attestation: Total time spent providing and/or coordinating discharge services: 35 minutes Time spent: Greater than 30 minutes Exam Narrative: Exam Narrative: Ms. García is a well-nourished, well-appearing 75-year-old female who is lying supine in bed. She appears comfortable and is in NARD. Neuro: awake, alert and oriented x4, speech clear, no focal neuro deficits noted HEENMT: normocephalic, atraumatic, EOMI, sclerae anicteric, moist oral mucosa, tongue midline, nares patent Neck: supple, no lymphadenopathy Chest: Anterior chest wall is nontender to palpation Respiratory: clear t
== END 2021-02-22 13:35 | disposition home or self-care (01) ==
LOC: ANHED 22:03 → ANHIMU 23:06
PROVIDERS: Admitting Provider Internal Medicine; Emergency Provider General Practice; PCP Nurse Practitioner Family; Visit Provider Physician Assistant
DX: R07.89 Other chest pain (principal); I25.10 Atherosclerotic heart disease of native coronary artery without angina pectoris; I10 Essential (primary) hypertension; G47.33 Obstructive sleep apnea (adult) (pediatric); Z85.07 Personal history of malignant neoplasm of pancreas
CPT/HCPCS: 36415; 71046; 80048; 80076; 83690; 83735; 84484; 85025; 85610; 85730; 93005; 99285; A9270; G0378

== ENCOUNTER 2021-03-02 08:05 | Outpatient (CLI) | payer MEDICARE, SELFPAY | END 2021-03-02 08:06 | disposition home or self-care (01) | LOC: ANHAUDIO 08:08 | PROVIDERS: PCP Nurse Practitioner Family; Visit Provider Nurse Practitioner Family | DX: R42 Dizziness and giddiness (principal); H90.3 Sensorineural hearing loss, bilateral | CPT/HCPCS: 92537; 92540; 92546; 92557; 92567 ==

== ENCOUNTER 2021-03-23 08:11 | Outpatient (CLI) | payer MEDICARE, SELFPAY ==
--- NOTE | ~2021-03-23 | MM_ITS ---
EXAMINATION: MM screening [place] BI w maximus HISTORY: Screening mammogram TECHNIQUE: Craniocaudal and mediolateral oblique 3-D tomosynthesis images were obtained and synthetic 2-D images were generated. CAD analysis was submitted and interpreted. COMPARISON: 07/19/2012 bilateral digital screening mammogram 04/20/2011 bilateral diagnostic digital mammogram and bilateral breast ultrasound 04/18/2011 bilateral digital screening mammogram BREAST PARENCHYMAL COMPOSITION: There are scattered areas of fibroglandular density. FINDINGS: There are bilateral mammographic asymmetries. Bilateral diagnostic mammography and breast u ltrasound examination are recommended. IMPRESSION: 1. Bilateral mammographic asymmetries 2. Bilateral diagnostic mammography and ultrasound are recommended BI-RADS Category 0: Incomplete: Needs additional imaging evaluation. Reviewed, dictated and finalized at location A.
== END 2021-03-23 08:12 | disposition home or self-care (01) ==
LOC: ANHIMG 08:17
PROVIDERS: PCP Nurse Practitioner Family; Visit Provider Family Medicine
DX: Z12.31 Encounter for screening mammogram for malignant neoplasm of breast (principal); R92.8 Other abnormal and inconclusive findings on diagnostic imaging of breast
CPT/HCPCS: 77063; 77067

== ENCOUNTER 2021-03-28 16:27 | Emergency (ER) | payer MEDICARE, SELFPAY ==
[2021-03-28] VITALS (7 sets, daily range): BP systolic 140–167; BP diastolic 65–90; PULSE 54–78; RESP 12–18; TEMP 36.4; O2SAT 89–98
--- NOTE | ~2021-03-28 | CT_ITS ---
EXAMINATION: CT abdomen pelvis w con EXAM DATE: 03/28/2021 19:29 INDICATION: Upper abdominal pain. Pancreatic cancer. TECHNIQUE: Spiral CT of the abdomen and pelvis was performed following intravenous injection of 100 m L Omnipaque 350. Axial, coronal and sagittal images of the abdomen and pelvis were reviewed. The do se-length product (DLP) for this examination was 594.73 mGy-cm. The exposure was tailored according to patient size (auto mA exposure control), and iterative reconstruction (ASIR) was used as additiona l dose reduction technique. Comparison is made to prior examination from 11/24/2017. FINDINGS: Surgical changes consistent with Whipple procedure. The liver, spleen, adrenal glands and pancreas are unremarkable. Gallbladder is unremarkable. No biliary obstruction. Portal and splenic veins are patent. Kidneys enhance symmetrically. There is no hydronephrosis. There are bilateral r enal peripelvic cysts. The uterus is not identified and has likely been surgically resected. The bl adder is unremarkable. There is no retroperitoneal or pelvic lymphadenopathy. There is mild scatte red arteriosclerotic disease. The appendix is normal. There is mild scattered colonic diverticulosis. There is no adjacent inflamm atory change to suggest diverticulitis. There is expected amount of colonic stool. No free intraper itoneal gas. Mild cardiomegaly. The lung bases are unremarkable. The bones are unremarkable. IMPRESSION: 1. No acute intra-abdominal findings. 2. Surgical changes from Whipple procedure. 3. Mild colonic diverticulosis. Reviewed, dictated and finalized at location A.
--- NOTE | 2021-03-28 16:48 | ECG_ITS ---
Measurements Intervals [place] Rate: 54 P: 47 [place]: 191 QRS: 3 QRSD: 107 T: 84 QT: 450 QTc: 429 Interpretive Statements SINUS BRADYCARDIA VENTRICULAR PREMATURE COMPLEXES BORDERLINE R WAVE PROGRESSION, ANTERIOR LEADS BORDERLINE ST-T WAVE ABNORMALITY- HIGH LATERAL LEADS BASELINE ARTIFACT- I, II, III ABNORMAL ECG Electronically Signed On 03-28-2021 19:15:49 CDT by Stuart Austin D.O.
--- NOTE | 2021-03-28 16:52 | ED.NAVMDI ---
HPI - Nausea/Vomiting/Diarrhea General Chief complaint: Nausea/Vomiting/Diarrhea Stated complaint: N/V Time Seen by Provider: 03/28/21 16:35 Source: patient Mode of arrival: ambulatory Limitations: no limitations History of Present Illness HPI Narrative: This is a 75 year old female who presents for evaluation of upper abdominal pain with nausea and vomiting. PAtient states last night she had diffuse abdominal discomfort and nausea. Approximately 2 hours ago she developed multiple episodes of bilious emesis. She also had constant upper abdominal pressure. She denies chest pain, sob but does reports dizziness. She reports she has had similar episodes on the past and she was diagnosed with a virus. She denies fever or chills. She also denies diarrhea. She does not history of pancreatic cancer 10 years ago. She has not had follow up in 6 years . Related Data Home Medications Medication Instructions Recorded Confirmed levocetirizine 10 mg PO DAILY 08/28/19 02/22/21 oxybutynin chloride 5 mg PO TID 08/28/19 02/22/21 hydrochlorothiazide 25 mg PO QAM 09/28/20 02/22/21 [id number] 1 tablet PO QAM 09/28/20 02/22/21 carvedilol 3.125 mg tablet 3.125 mg PO BID tablet 01/26/21 02/22/21 magnesium 200 mg tablet 200 mg PO DAILY 01/26/21 02/22/21 pantoprazole 40 mg tablet,delayed 40 mg PO QAM 01/27/21 02/22/21 release diclofenac sodium 75 mg PO DAILY 02/22/21 02/22/21 escitalopram oxalate 10 mg PO DAILY 02/22/21 02/22/21 Allergies Allergy/AdvReac Type Severity Reaction Status Date / Time codeine Allergy Unknown Vomiting, Verified 01/27/21 10:02 itching, swelling Review of Systems Review of Systems: All systems reviewed & are unremarkable except as noted in HPI and below PMFSH Past Medical History Medical History Anemia Anxiety Arthritis Collar bone fracture Coronary artery disease Depression Finger fracture, left GERD (gastroesophageal reflux disease) History of blood transfusion HTN (hypertension) IBS (irritable bowel syndrome) Kidney stones Migraines WHITNEY (obstructive sleep apnea) Osteoporosis Pancreatic cancer Pelvis fracture Post-menopausal Rib fracture Shingles Ulcer Uterine fibroid Surgical History Surgical History History of arthroscopic knee surgery Bilateral History of cardiac catheterization History of cholecystectomy History of coronary artery stent placement History of hysterectomy History of pancreatic surgery Whipple History of tonsillectomy History of tubal ligation Hx of breast reduction, elective Hx of prior ablation treatment For heart arrhythmia Family History Family History (Updated 02/22/21 @ 10:24 by Priscila Tejada PA-C) Mother Colon cancer Heart disease Hyperlipidemia Grandparent Hypertension Father Unknown family medical history Social History Social History (Updated 02/22/21 @ 10:27 by Priscila Tejada PA-C) Social History: Ms. García lives at home. Her son recently moved in with her. She is independent in her daily activities and lives an active lifestyle. 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 Her primary care provider is Dr. Sarika Pereira. She designates her friend, Wendy, as her surrogate decision maker and she would like to be a full code. Smoking status: Never smoker Tobacco type: cigarettes Second hand tobacco smoke exposure: No Additional smoking assessment comments: As a teenager, she smoked cigarettes for a total of 3 months. Alcohol intake: current Substance use: never Substance use type: does not use Gender identity (if verbalized by the patient): Female Spiritual care concerns: No Exam Const: General: no acute distress and alert Orientation/consciousness: patient oriente
[2021-03-28] MEDS: SODIUM CHLORIDE 0.9% IV 1,000 ML 999 ML IV CONT (17:04)
[2021-03-28] MEDS: ONDANSETRON INJ 4 MG/2 ML VIAL IV PUSH (17:04)
[2021-03-28 17:22] LABS: Troponin I < 0.012 ng/mL (0.000-0.034)
[2021-03-28 17:42] LABS: Basophils Absolute Auto 0.1 K/mm3 (0.0-0.1); Basophils Percent Auto 0.6 % (0.2-1.2); Eosinophils Absolute Auto 0.1 K/mm3 (0-0.3); Eosinophils Percent Auto 1.4 % (0-4.4); Hematocrit 43.1 % (37.0-47.0); Hemoglobin 13.8 g/dL (12.0-15.0); Immature Granulocyte Absolute 0.02 K/mm3 (0.00-0.031); Immature Granulocyte Percent A 0.2 % (0-0.5); Lymphocytes Absolute Auto 1.98 K/mm3 (0.9-3.2); Lymphocytes Percent Auto 20.7 % (18.3-44.2); Mean Corpuscular Hemoglobin 27.5 pg (26-34); Mean Corpuscular Volume 85.9 fl (80-100); Mean Platelet Volume 11.2 fl (7.4-10.4); Monocytes Absolute Auto 0.4 K/mm3 (0.1-0.6); Monocytes Percent Auto 4.4 % (2.6-8.5); Neutrophils Percent Auto 72.7 % (45.5-73.1); Platelet Count Result 210 k/mm3 (150-375); Red Blood Count 5.02 M/mm3 (4.2-5.4); Red Cell Distribution Width 14.3 % (11.5-14.5); White Blood Count 9.6 K/mm3 (4.5-10.0)
[2021-03-28 18:07] LABS: Alanine Aminotransferase 37 U/L (4-35); Albumin Level 4.7 g/dL (3.5-5.1); Alkaline Phosphatase 109 U/L (38-126); Anion Gap 10 mmol/L (8-16); Aspartate Amino Transferase 41 U/L (14-36); Blood Urea Nitrogen 21 mg/dL (7-17); Calcium 10.4 mg/dL (8.4-10.2); Carbon Dioxide 25 mmol/L (22-30); Chloride 107 mmol/L (98-107); Estimated CRCL calculation 58 ml/min; Estimated Glomerular Filt Rate > 60; Glucose 109 mg/dL (65-105); Lipase 39 U/L (23-300); Potassium 3.9 mmol/L (3.4-5.0); Sodium 142 mmol/L (137-145)
[2021-03-28 18:10] LABS: Add Urine Microscopic? YES; Appearance Urine Cloudy (Clear); Bacteria Urine Trace /hpf; Bilirubin Urine Negative (Negative); Color Urine Amber (Yellow); Glucose Urine UA Negative (Negative); Ketones Urine Negative (Negative); Leukocyte Esterase Ur 1+ LEU/UL (Negative); Mucus Urine Rare /lpf; Nitrate Urine Positive (Negative); Protein Urine 1+ mg/dL (Negative); RBC Urine 0-2 /hpf (0-2); Specific Grav Ur 1.025 (1.001-1.035); Squamous Epithelial Cell Urine Occasional /hpf (Few)
[2021-03-28 18:11] LABS: Blood Urine Negative (Negative)
[2021-03-28] MEDS: METOCLOPRAMIDE HCL INJ 10 MG/2 ML VIAL IV PUSH (19:51)
[2021-03-28 19:59] LABS: Magnesium 2.1 mg/dL (1.6-2.3)
--- NOTE | 2021-03-28 20:19 | PC.NURSE ---
Pt reports nausea is completely gone. Dr. Lr made aware.
== END 2021-03-28 20:49 | disposition home or self-care (01) ==
PROVIDERS: Emergency Provider General Practice; PCP Family Medicine
DX: N39.0 Urinary tract infection, site not specified (principal); R10.13 Epigastric pain; I25.10 Atherosclerotic heart disease of native coronary artery without angina pectoris; I10 Essential (primary) hypertension
CPT/HCPCS: 36415; 74177; 80053; 81001; 83690; 83735; 84484; 85025; 87077; 87086; 87088; 87186; 93005; 96361; 96374; 96375; 99284; J2405; J2765; J7030; Q9967

== ENCOUNTER 2021-03-30 08:14 | Outpatient (CLI) | payer MEDICARE, SELFPAY ==
[2021-03-30 10:14] LABS: Add Urine Microscopic? YES; Appearance Urine Cloudy (Clear); Bacteria Urine Trace /hpf; Bilirubin Urine Negative (Negative); Blood Urine Negative (Negative); Color Urine Yellow (Yellow); Glucose Urine UA Negative (Negative); Ketones Urine Negative (Negative); Leukocyte Esterase Ur Trace LEU/UL (Negative); Mucus Urine Rare /lpf; Nitrate Urine Positive (Negative); Protein Urine 1+ mg/dL (Negative); RBC Urine 0-2 /hpf (0-2); Specific Grav Ur 1.021 (1.001-1.035); Squamous Epithelial Cell Urine Many /hpf (Few)
[2021-03-30 10:23] LABS: Urine Cotinine NEGATIVE
[2021-03-30 11:21] LABS: Hemoglobin A1C 5.6 % (<5.7)
== END 2021-03-30 08:15 | disposition home or self-care (01) ==
LOC: ANHSURGERY 08:20
PROVIDERS: PCP Family Medicine; Visit Provider Orthopaedic Surgery
DX: Z01.818 Encounter for other preprocedural examination (principal); M17.12 Unilateral primary osteoarthritis, left knee
CPT/HCPCS: 80307; 81001; 83036; 86850; 86900; 86901; 87081

== ENCOUNTER 2021-04-12 13:44 | Observation (INO) | payer MEDICARE, SELFPAY ==
[2021-03-30 08:43] VITALS: BP 142/74; PULSE 54; RESP 16; TEMP 37.1; O2SAT 97; BMI 29.1
--- NOTE | 2021-04-10 14:09 | WPDANESEPPF ---
Anes - Initial Pre Proc Eval Procedure: Operation Date: 04/11/21 08:30 Proposed Procedures p Left Total Knee Arthroplasty - Clarence Yu MD Date/Time: 04/10/21 14:09 Surgeon: Clarence Yu MD Pre Op Diagnosis: left knee djd Patient Data Age: 75 Gender: F Height: 1.7 m Weight: 84.4 kg Last Vital Signs Temp 37.1 C 03/30/21 08:43 Pulse 54 L 03/30/21 08:43 Resp 16 03/30/21 08:43 BP 142/74 H 03/30/21 08:43 Pulse Ox 97 03/30/21 08:43 Allergies Allergy/AdvReac Type Severity Reaction Status Date / Time codeine Allergy Unknown Vomiting, Verified 04/11/21 07:00 itching, swelling Home Medications Medication Instructions Recorded Confirmed Type levocetirizine 10 mg PO DAILY PRN 08/28/19 04/11/21 History oxybutynin chloride 5 mg PO TID 08/28/19 04/11/21 History lisinopril 20 mg PO QAM #30 tablet 08/30/19 04/11/21 Rx hydrochlorothiazide 25 mg PO QAM 09/28/20 04/11/21 History carvedilol 3.125 mg tablet 3.125 mg PO BID tablet 01/26/21 04/11/21 History magnesium 200 mg tablet 200 mg PO DAILY 01/26/21 04/11/21 History aspirin [Children's Aspirin] 81 mg PO DAILY@0800 #30 tablet 02/22/21 04/11/21 Rx diclofenac sodium 75 mg PO QAM 02/22/21 04/11/21 History escitalopram oxalate 10 mg PO DAILY 02/22/21 04/11/21 History omeprazole 20 mg PO DAILY #10 cap 03/28/21 04/11/21 Rx [id number]-Em-[id number] 1 mg 1 tablet PO QAM 03/30/21 04/11/21 History tablet Other Studies: Exam Date: 09/29/2020 11:03 AM Exam Location: [facility] Complete two-dimensional, color flow and Doppler transthoracic echocardiogram is performed. Summary 1. Complete two-dimensional, color flow and Doppler transthoracic echocardiogram is performed. 2. Left ventricular systolic function is normal, estimated at 60-65%. 3. The left ventricular diastolic function is grade I diastolic dysfunction. 4. There is mild mitral valve regurgitation. 5. There is mild tricuspid valve regurgitation. 6. No pulmonary hypertension, estimated pulmonary arterial systolic pressure is 24 mmHg. 7. There is trace pulmonic regurgitation. Patient hx anesthesia problems: none Family hx anesthesia problems: none [facility] Past Medical History Medical History (Updated 04/10/21 @ 14:10 by Kurt Lopez MD) Anemia Anxiety Arthritis Bradycardia Collar bone fracture Coronary artery disease Depression Finger fracture, left GERD (gastroesophageal reflux disease) History of blood transfusion HTN (hypertension) IBS (irritable bowel syndrome) Kidney stones Migraines WHITNEY (obstructive sleep apnea) Osteoporosis Pancreatic cancer Pelvis fracture Post-menopausal Rib fracture Shingles ST elevation (STEMI) myocardial infarction 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) Ulcer Uterine fibroid UTI (urinary tract infection) Surgical History Surgical History History of arthroscopic knee surgery Bilateral History of cardiac catheterization History of cholecystectomy History of coronary artery stent placement History of hysterectomy History of pancreatic surgery Whipple History of tonsillectomy History of tubal ligation Hx of breast reduction, elective Hx of prior ablation treatment For heart arrhythmia Family History Family History (Updated 02/22/21 @ 10:24 by Priscila Tejada PA-C) Mother Colon cancer Heart disease Hyperlipidemia Grandparent Hypertension Father Unknown family medical history Social History Social History (Updated 02/22/21 @ 10:27 by Priscila Tejada PA-C) Social History: Ms. García lives at home. Her son recently moved in with her. She is independent in her daily activities and lives an active lifestyle. 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 Her primary care provider is Dr. Sarika Pereira. Sh
[2021-04-11] VITALS (16 sets, daily range): BP systolic 110–164; BP diastolic 62–90; PULSE 52–71; RESP 7–20; TEMP 35.5–36.7; O2SAT 92–100
[2021-04-11] MEDS: LACTATED RINGERS 1,000 ML 30 ML IV CONT ×2 (06:45→10:54)
[2021-04-11] MEDS: ACETAMINOPHEN 500 MG TABLET 1000 MG PO (06:47)
[2021-04-11] MEDS: TRANEXAMIC ACID 1,000MG/ISO100 1,000 MG/100 ML BAG 200 MG IVPB (06:48)
[2021-04-11] MEDS: ONDANSETRON INJ 4 MG/2 ML VIAL IV PUSH ×2 (06:52→11:34)
--- NOTE | 2021-04-11 07:30 | WPDANESPNB ---
Anes - Peripheral Nerve Block Date/Time: 04/11/21 07:30 I have discussed with the patient/family/POA the placement of a peripheral nerve block for post-operative pain management, including associated risks, benefits, complications, and side effects. Alternative methods of post-operative analgesia were detailed. Questions were solicited and answers provided to the satisfaction of the patient/family/POA. Time-Out: A pre-procedural Time-Out was completed immediately before starting the procedure and confirmed: Patient Identification, Site, Procedure, Patient Position and the Availability of Requisite Equipment. Clinical Indications: Acute post-operative pain management requested by the operative surgeon. Nerve Block Insertion Note Anes-nerve block: femoral right Patient position: supine Skin prep: chlorhexidine Needle: 22 gauge, stimulating, insulated echogenic needle. Needle length: 80 mm Technique: ultrasound (in plane) Injectate: bupivacaine 0.5% with epi 5 mcg/ml (20cc) Observations: tolerated well Complications: none Procedure start time:: 830 Procedure end time:: 835
--- NOTE | 2021-04-11 07:55 | SUR.PREOP ---
0635 PT AND SON CONFIRM PT WAS TREATED FOR POSITIVE URINE CULTURE
--- NOTE | 2021-04-11 08:27 | WPDHPUPDATE1 ---
History and Physical Update Update Date/Time: 04/11/21 08:27 History and Physical has been reviewed, including an updated exam of the patient. There are NO changes in the patient's condition. Risks, benefits, and alternatives have been discussed and questions answered. Patient agrees to proceed with procedure.
[2021-04-11] MEDS: ceFAZolin 2 GM/D5W 50 ML 2 GM/50 ML BAG IVPB ×2 (08:45→17:18)
--- NOTE | 2021-04-11 10:49 | W.PM.PROC2 ---
Procedure Note - Detailed Date of Procedure 04/11/21 Pre-op Diagnosis left knee djd Post-op Diagnosis same Procedure Performed L TKA Surgeon Clarence Yu MD Anesthesia general Description of Procedure THE LEFT KNEE WAS PREPPED AND DRAPED IN THE STERILE FASHION. THERE WAS A 10 DEGREE FLEXION CONTRACTURE. A MIDLINE SKIN INCISION WAS MADE. A MEDIAL PARAPATELLAR ARTHROTOMY WAS MADE. THE PATELLA WAS EVERTED. THERE WAS TRICOMPARTMENT DJD. THERE WAS MINIMAL PATELLA DJD. AN INTRAMEDULLARY BRIDGER WAS PLACED IN THE FEMUR. A DISTAL FEMORAL CUT WAS MADE IN 5 DEGREES OF VALGUS REMOVING APPROXIMATELY 9 MM OF BONE FROM THE DISTAL FEMUR. THE FEMUR WAS SIZED TO 65. A 65 FEMORAL CUTTING BLOCK WAS PLACED IN 3 DEGREES OF EXTERNAL ROTATION AND IN ALIGNMENT WITH DEBORAH'S LINE AND THE TRANSEPICONDYLAR AXIS. ANTERIOR POSTERIOR AND CHAMFER CUTS WERE MADE. THE CUTS WERE EXCELLENT. NEXT AN INTRAMEDULLARY CUTTING GUIDE WAS PLACED IN THE TIBIA. A TRANS TIBIAL CUT WAS MADE ALONG THE LONG AXIS OF THE TIBIA. APPROXIMATELY 10 MM OF BONE WAS REMOVED FROM THE HIGH SIDE OF THE TIBIA. THE TIBIA WAS THEN PLANED TO A SMOOTH SURFACE. POSTERIOR FEMORAL OSTEOPHYTES WERE REMOVED FROM THE FEMORAL CONDYLES. A 75 TIBIAL TRIAL WAS PLACED IN ALIGNMENT WITH THE 1/3 MEDIAL ASPECT OF THE TIBIAL TUBERCLE. THEN A 65 FEMORAL TRIAL COMPONENT WAS PLACED. BOTH HAD EXCELLENT FITS. EVENTUALLY A 1O MM CR POLYETHYLENE TRIAL COMPONENT WAS PLACED. THE KNEE WAS TAKEN THROUGH A RANGE OF MOTION. THE KNEE CAME OUT TO FULL EXTENSION. THERE WAS NO ABNORMAL TILT TO THE PATELLA. THERE WAS GOOD A/P AND VARUS/VALGUS STABILITY. THERE WAS NO EXCESSIVE ROLL BACK WITH FLEXION. THE TRIAL COMPONENTS WERE REMOVED. THEN A 65 FEMORAL COMPONENT AND 75 TIBIAL COMPONENT WITH A 10 CR POLYETHYLENE COMPONENT WERE CEMENTED INTO PLACE. ONCE THE CEMENT WAS HARD THE KNEE WAS TAKEN THROUGH A ROM AGAIN AND FOUND TO BE STABLE WITH NO PATELLA TILT NO EXCESSIVE ROLL BACK WITH FLEXION AND GOOD STABILITY WITH COMPLETE AND FULL EXTENSION. THE KNEE WAS IRRIGATED WITH STERILE BETADINE AND WATER FOR ABOUT 3 MINUTES. THE BLEEDERS WERE CAUTERIZED. THE ARTHROTOMY WAS REPAIRED WITH NUMBER 1 VICRYL. THE SUB CUTANEOUS LAYER WITH 2-0 VICRYL AND THE SKIN WITH MARIELENA. THE WOUND WAS WASHED AND A STERILE DRESSING WAS APPLIED. PATIENT WAS EXTUBATED. Estimated Blood Loss -150.0 Pathology none sent Complications No immediate complications Condition stable Disposition PACU
[2021-04-11] MEDS: fentaNYL CITRATE INJ (*CRX) 100 MCG/2 ML VIAL 25 MCG IV PUSH ×4 (11:08→11:27)
[2021-04-11] MEDS: oxyCODONE HCL (*CRX) 5 MG TAB IR 10 MG PO (12:29)
[2021-04-11] MEDS: OXYBUTYNIN CHLORIDE 5 MG TABLET PO ×2 (12:30→17:18)
[2021-04-11] MEDS: diphenhydrAMINE HCl INJ 50 MG/ML VIAL 25 MG IV PUSH (12:37)
--- NOTE | 2021-04-11 14:31 | ADMGEN ---
This patient, Olinda García, was admitted to 2 Medical Room 240-. Patient/family oriented to hospital policies and general routines including ID bracelet, bed and alarms, visiting hours, pain management, procedures, bathroom and other care routines, personal items, smoking policy, room service/diet, and visiting hours. Information on how to activate the Rapid Response Team has been discussed. Patient/Family are encouraged to report perceived risks to care and to ask questions if they do not understand what they are told or what they should do.
--- NOTE | 2021-04-11 15:45 | WPDCN ---
Assessment and Plan Assessment and plan (1) Left knee DJD: Qualifiers: Osteoarthritis type: primary Qualified Code(s): M17.12 - Unilateral primary osteoarthritis, left knee Code(s): M17.12 - Unilateral primary osteoarthritis, left knee Status: Acute Assessment and Plan: Postoperative day 0 status post left total knee arthroplasty. Wound care and pain control will be deferred to Dr. Yu as well as DVT prophylaxis. PT/OT consulted. (2) Hypertension: Code(s): I10 - Essential (primary) hypertension Status: Acute Assessment and Plan: Blood pressures were reviewed and they have been stable postoperatively. Resume antihypertensives and monitor daily. (3) Coronary artery disease: Code(s): I25.10 - Atherosclerotic heart disease of [place] coronary artery without angina pectoris Status: Acute Assessment and Plan: No acute issues. Continue beta-gerald. Resume aspirin when okay with Dr. Yu. (4) Obstructive sleep apnea: Code(s): G47.33 - Obstructive sleep apnea (adult) (pediatric) Status: Inactive Assessment and Plan: CPAP will be provided for the patient to use while hosptialized. Additional Plan Thank you for allowing us to participate in this patient's care. Please do not hesitate to contact us with any questions. Supervising physician for this medical consultation is Dr. Alphonso Gonzalez. HPI Data of Consult Date/Time: 04/11/21 15:45 Requesting Physician: Clarence Yu MD Primary Care Provider: Sarika PereiraMD Consult Narrative Narrative: This is a 75-year-old female with degenerative joint disease status post elective left knee replacement whom the hospitalist service has been consulted for management of her medical conditions postoperatively. Her medical history is significant for coronary artery disease status post stent in 2008, paroxysmal SVT status post ablation 2012, hypertension, dyslipidemia, untreated sleep apnea, GERD, and anxiety. She has had longstanding pain in her left knee not amenable to conservative outpatient treatment and thus she elected for replacement today. Her surgery was performed under general anesthesia with no immediate complications documented an estimated blood loss of 150 mL. Postoperatively she has done quite well and has been up with the walker to the bathroom. Her pain is well controlled with mild throbbing about that left knee. She had slight nausea postoperatively but that has since resolved and she was able to eat her entire dinner which she enjoyed quite a bit. She denies postoperative fever, chills, sweats, chest pain, shortness of breath, and vomiting. No paresthesias, skin color, or temperature changes distal to the surgical site. Review of Systems Review of Systems: Narrative: Twelve systems were reviewed with pertinent positives and negatives as per HPI. No fever, chills, sweats. No recent cold or flu symptoms. She has been having issues with tinnitus which is now chronic and had a workup for her primary care provider to include carotid Doppler ultrasounds which were negative. She has an upcoming appoint with a neurologist somewhere in [place] for further evaluation. She has not had chest pain, pleuritic pain, or palpitations. No shortness of breath. No history of venous thromboembolism. Except as documented, all other systems were reviewed and are negative. REPLACED BY [facility] Past Medical History Medical History (Updated 04/11/21 @ 21:27 by Almaz Kapoor PA-C) Anemia History of blood transfusion. Anxiety Arthritis Coronary artery disease Status post stent 2008. Negative stress test in 2012. No significant disease on [facility] in January 2018. Patient of Dr. Sharpe. Depression Dyslipidemia Finger fracture, left Gastric ulcer Gastroesophageal reflux disease History of blood [place]
[2021-04-11] MEDS: DOCUSATE SODIUM 100 MG CAPSULE PO (17:17)
[2021-04-11] MEDS: carvediloL 3.125 MG TABLET PO (17:17)
[2021-04-11] MEDS: oxyCODONE/ACETAMINOPHEN (*CRX) 5-325 MG TABLET 1 TABLET PO ×2 (17:19→23:57)
[2021-04-11] MEDS: diazePAM (*CRX) 5 MG TABLET PO (19:21)
[2021-04-11] MEDS: FAMOTIDINE 20 MG TABLET PO (19:59)
[2021-04-12] VITALS (10 sets, daily range): BP systolic 130–155; BP diastolic 58–82; PULSE 55–92; RESP 16–23; TEMP 36.4–36.9; O2SAT 92–98
--- NOTE | ~2021-04-12 | XR_ITS ---
EXAMINATION: XR knee LT 2V DATE: 04/13/2021 11:26 INDICATION: Left knee injury. TECHNIQUE: 2 views of left knee were obtained. COMPARISON: Left knee radiographs 04/11/2021 FINDINGS: There is a total left knee arthroplasty in near-anatomic alignment without patellar resurfa cing. There is a nondisplaced fracture of lateral aspect of lateral femoral condyle at the attachment of fibular collateral ligament. There is gas in the knee joint and soft tissues, consistent with rec ent surgery. Anterior skin autumn are noted. IMPRESSION: 1. Nondisplaced fracture of lateral aspect of lateral femoral condyle at the attachment of fibular co llateral ligament. 2. Total left knee arthroplasty in near-anatomic alignment. Reviewed, dictated and finalized at location A. IMPRESSION: 1. Nondisplaced fracture of lateral aspect of lateral femoral condyle at the at tachment of fibular collateral ligament. 2. Total left knee arthroplasty in near-anatomic alignment.
--- NOTE | ~2021-04-12 | XR_ITS ---
EXAMINATION: XR knee LT 2V DATE: 04/11/2021 11:00 INDICATION: Left knee arthroplasty. Postop. TECHNIQUE: 2 views of left knee were obtained. COMPARISON: Left knee radiographs 01/26/2021 FINDINGS: There is a total left knee arthroplasty without patellar resurfacing in near-anatomic align ment. No fracture. There is gas in the knee joint and soft tissues, consistent with recent surgery. S kin autumn are noted. IMPRESSION: 1. Total left knee arthroplasty in near-anatomic alignment. Reviewed, dictated and finalized at location A.
--- NOTE | ~2021-04-12 | US_ITS ---
EXAMINATION: US venous doppler [facility] DATE: 04/13/2021 11:02 INDICATION: Left calf pain. TECHNIQUE: Grayscale ultrasound images without and with compression and Doppler ultrasound images of the left lower extremity veins were obtained. COMPARISON: None. FINDINGS: The visualized portions of left common femoral vein, profunda (deep) femoral vein, femoral vein, popl iteal vein, peroneal veins, posterior tibial veins, and greater saphenous vein outflow are patent. IMPRESSION: 1. No deep venous thrombosis. Reviewed, dictated and finalized at location A.
[2021-04-12] MEDS: ceFAZolin 2 GM/D5W 50 ML 2 GM/50 ML BAG IVPB ×2 (00:01→08:44)
[2021-04-12] MEDS: oxyCODONE HCL (*CRX) 5 MG TAB IR 10 MG PO ×3 (01:26→21:43)
[2021-04-12 06:12] LABS: Basophils Percent Auto 0.2 % (0.2-1.2); Eosinophils Absolute Auto 0.1 K/mm3 (0-0.3); Eosinophils Percent Auto 0.7 % (0-4.4); Hematocrit 31.7 % (37.0-47.0); Hemoglobin 9.7 g/dL (12.0-15.0); Immature Granulocyte Absolute 0.07 K/mm3 (0.00-0.031); Immature Granulocyte Percent A 0.5 % (0-0.5); Lymphocytes Absolute Auto 1.65 K/mm3 (0.9-3.2); Lymphocytes Percent Auto 12.7 % (18.3-44.2); Mean Corpuscular HGB Conc 30.6 g/dl (32-36); Mean Corpuscular Hemoglobin 27.8 pg (26-34); Mean Corpuscular Volume 90.8 fl (80-100); Mean Platelet Volume 11.4 fl (7.4-10.4); Monocytes Absolute Auto 0.9 K/mm3 (0.1-0.6); Monocytes Percent Auto 6.5 % (2.6-8.5); Neutrophils Absolute Auto 10.3 K/mm3 (1.3-6.7); Neutrophils Percent Auto 79.4 % (45.5-73.1); Platelet Count Result 166 k/mm3 (150-375); Red Blood Count 3.49 M/mm3 (4.2-5.4); Red Cell Distribution Width 14.6 % (11.5-14.5)
[2021-04-12 06:26] LABS: Anion Gap 3 mmol/L (8-16); Blood Urea Nitrogen 19 mg/dL (7-17); Calcium 9.2 mg/dL (8.4-10.2); Carbon Dioxide 29 mmol/L (22-30); Chloride 106 mmol/L (98-107); Estimated CRCL calculation 66 ml/min; Estimated Glomerular Filt Rate > 60; Glucose 122 mg/dL (65-105); Magnesium 2.1 mg/dL (1.6-2.3); Potassium 3.9 mmol/L (3.4-5.0); Sodium 138 mmol/L (137-145)
[2021-04-12] MEDS: hydroCHLOROthiazide 25 MG TABLET PO (08:44)
[2021-04-12] MEDS: DOCUSATE SODIUM 100 MG CAPSULE PO ×2 (08:44→17:54)
[2021-04-12] MEDS: FAMOTIDINE 20 MG TABLET PO ×2 (08:44→21:43)
[2021-04-12] MEDS: ASPIRIN 325 MG ENTERIC TABLET 650 MG PO (08:44)
[2021-04-12] MEDS: OXYBUTYNIN CHLORIDE 5 MG TABLET PO ×3 (08:44→17:54)
[2021-04-12] MEDS: carvediloL 3.125 MG TABLET PO ×2 (08:44→17:54)
[2021-04-12] MEDS: MAGNESIUM OXIDE 200 MG TABLET PO (08:44)
[2021-04-12] MEDS: lisinopriL 20 MG TABLET PO (08:44)
[2021-04-12] MEDS: ESCITALOPRAM OXALATE 10 MG TABLET PO (08:45)
--- NOTE | 2021-04-12 08:52 | PM.IMPN ---
Progress Note: A&P Assessment and Plan (1) Left knee DJD: Qualifiers: Osteoarthritis type: primary Qualified Code(s): M17.12 - Unilateral primary osteoarthritis, left knee Code(s): M17.12 - Unilateral primary osteoarthritis, left knee Status: Acute Assessment and Plan: Postoperative day 1 status post left total knee arthroplasty. Wound care and pain control will be deferred to Dr. Yu as well as DVT prophylaxis. Pain: Adriana code own 10 mg p.o. Q 4 p.r.n., Percocet 5/325 Q 4 p.r.n., Tylenol 1000 mg p.o. q.6 p.r.n. antiemetic: Zofran 4 mg IV Q 4 p.r.n. bowel: Colace 100 mg p.o. b.i.d., antibiotic: supple is Radha 2 g q.8 x3 bags DVT prophylaxis aspirin 650 mg p.o. daily GI prophylactic: Famotidine 20 mg p.o. q.12 PT/OT consulted. (2) Hypertension: Code(s): I10 - Essential (primary) hypertension Status: Acute Assessment and Plan: blood pressure today 155/69, probably related to pain continue carvedilol 3.125 mg p.o. b.i.d., hydrochlorothiazide 25 mg p.o. q.day, lisinopril 20 mg p.o. q.day trend blood pressures adjust medications as needed (3) Coronary artery disease: Code(s): I25.10 - Atherosclerotic heart disease of [place] coronary artery without angina pectoris Status: Acute Assessment and Plan: No acute issues. Continue beta-gerald. Resume aspirin when okay with Dr. Yu. (4) Obstructive sleep apnea: Code(s): G47.33 - Obstructive sleep apnea (adult) (pediatric) Status: Inactive Assessment and Plan: CPAP will be provided for the patient to use while hosptialized. Additional Plan Subjective Date/time seen: 04/12/21 08:25 Interval history: Patient is 75-year-old female with a past medical history of hyperlipidemia, sleep apnea, GERD, anxiety, hypertension who is postop day 1 for a left knee replacement. Patient stated that she is doing way better than she was yesterday. She rates her pain at about a 0/10 however states that she cannot bend her knee are has a hard time turning. She is looking for to PT today and is eager to get up. Currently, she denies postoperative fever, chills, sweats, chest pain, shortness of breath, and vomiting. Review of Systems Review of Systems: All systems reviewed & are unremarkable except as noted in HPI and below Exam Const: General: cooperative, healthy appearing, comfortable, no acute distress, well developed, alert and awake Nutritional Appearance: well nourished Orientation/consciousness: oriented to person, oriented to place, oriented to time and patient oriented x3 Limitations: no limitations HENMT: Head: normal to inspection Ears: hearing grossly normal bilaterally General nose exam: Normal external nose present Mouth: Yes Normal oral and palatal mucosa present, Yes lip normal and Yes tongue normal Teeth and gingiva: abnormal tooth and associated gingiva and poor dentition Eyes: General: appearance normal, both eyes and all related structures Neck: Neck: normal visual inspection, full ROM, trachea midline and supple Chest: Chest palpation & inspection: normal inspection of the chest Resp: Effort & Inspection: normal respiratory effort and able to speak in complete sentences Auscultation: clear to auscultation bilaterally Cardio: Jugular venous distension: no JVD Rate: regular rate Rhythm: regular rhythm Heart sounds: S1 normal heart sound present and S2 normal heart sound present Peripheral pulses: Peripheral pulses 2+ throughout GI: Inspection: normal to inspection GI Palp: Yes Soft to palpation and No Tenderness to palpation present (GI) Auscultation: normal bowel sounds Skin: General skin exam: normal color and no rashes or lesions noted Lesions: no lesions Rashes: no rashes Wounds: wounds noted (left kn
[2021-04-12] MEDS: oxyCODONE/ACETAMINOPHEN (*CRX) 5-325 MG TABLET 1 TABLET PO (09:41)
--- NOTE | 2021-04-12 16:50 | PM.PNORT ---
Progress Note: A&P Additional Plan POD 1 DOING WELL. PLAN DC FOR TMRW. Subjective Subjective Date/Time Seen: 04/12/21 16:50 POD 1 DOING WELL. SLOW PROGRESS WITH PT. PAIN CONTROLLED. 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 [employer] SIGN Objective Data Vital Signs Vital Signs: Vital Signs - 24 hr 04/11/21 17:17 04/11/21 18:00 04/11/21 21:46 Temperature 36.4 C 36.3 C L Pulse Rate 68 54 L 67 Respiratory Rate 20 20 Blood Pressure 130/81 133/73 Pulse Oximetry 95 99 04/11/21 23:45 04/12/21 01:46 04/12/21 03:33 Temperature 36.4 C L Pulse Rate 55 L 55 L 58 L Respiratory Rate 17 18 17 Blood Pressure 137/58 L Pulse Oximetry 92 96 92 04/12/21 05:46 04/12/21 08:44 04/12/21 10:00 Temperature 36.4 C 36.7 C Pulse Rate 60 60 66 Respiratory Rate 20 16 Blood Pressure 155/69 H 137/73 Pulse Oximetry 98 93 04/12/21 14:00 Temperature 36.9 C Pulse Rate 68 Respiratory Rate 16 Blood Pressure 132/70 Pulse Oximetry 94 Intake/Output Intake/Output: Intake & Output 04/09/21 04/10/21 04/11/21 04/12/21 23:59 23:59 23:59 23:59 Intake Total 900 1130 Output Total 200 700 Balance 700 430 Meds/Results Medications: Active Medications Generic Name Dose Route Start Last Admin Trade Name Mikeq PRN Reason Stop Dose Admin Acetaminophen 1,000 mg 04/11/21 12:01 Acetaminophen 500 Mg Tablet PO Q6H PRN Pain Rated 1-3 Aspirin 650 mg 04/12/21 09:00 04/12/21 08:44 Aspirin 325 Mg Enteric Tablet PO 650 mg DAILY ISAÍAS Administration Carvedilol 3.125 mg 04/11/21 17:00 04/12/21 08:44 Carvedilol 3.125 Mg Tablet PO 3.125 mg BID ISAÍAS Administration Diazepam 5 mg 04/11/21 12:01 04/11/21 19:21 Diazepam (*Crx) 5 Mg Tablet PO 5 mg Q8H PRN Administration Spasms Diphenhydramine HCl 25 mg 04/11/21 12:01 04/11/21 12:37 Diphenhydramine Hcl Inj 50 Mg/Ml Vial IV PUSH 25 mg Q6H PRN Administration Itching Docusate Sodium 100 mg 04/11/21 17:00 04/12/21 08:44 Docusate Sodium 100 Mg Capsule PO 100 mg BID ISAÍAS Administration Escitalopram Oxalate 10 mg 04/12/21 09:00 04/12/21 08:45 Escitalopram Oxalate 10 Mg Tablet PO 10 mg DAILY ISAÍAS Administration Famotidine 20 mg 04/11/21 21:00 04/12/21 08:44 Famotidine 20 Mg Tablet PO 20 mg Q12HR ISAÍAS Administration Hydrochlorothiazide 25 mg 04/12/21 09:00 04/12/21 08:44 Hydrochlorothiazide 25 Mg Tablet PO 25 mg QAM ISAÍAS Administration Lisinopril 20 mg 04/12/21 09:00 04/12/21 08:44 Lisinopril 20 Mg Tablet PO 20 mg QAM ISAÍAS Administration Loratadine 10 mg 04/11/21 12:13 Loratadine 10 Mg Tablet PO DAILY PRN Nasal Congestion Magnesium Oxide 200 mg 04/12/21 09:00 04/12/21 08:44 Magnesium Oxide 200 Mg Tablet PO 200 mg DAILY [facility] Administration Naloxone HCl 0.1 mg 04/11/21 12:01 Naloxone Hcl 0.4 Mg/Ml Vial IV PUSH Q2M PRN Opiate Reversal Ondansetron HCl 4 mg 04/11/21 12:01 Ondansetron Inj 4 Mg/2 Ml Vial IV PUSH Q4H PRN Nausea And Vomiting Oxybutynin Chloride 5 mg 04/11/21 13:00 04/12/21 11:57 Oxybutynin Chloride 5 Mg Tablet PO 5 mg TID ISAÍAS Administration Oxycodone HCl 10 mg 04/11/21 12:01 04/12/21 01:26 Oxycodone Hcl (*Crx) 5 Mg Tab Ir PO 10 mg Q4H PRN Administration Pain Rated 7-10 Oxycodone/Acetaminophen 1 tablet 04/11/21 12:01 04/12/21 09:41 Oxycodone/Acetaminophen (*Crx) 5-325 Mg Tablet PO 1 tablet Q4H PRN Administration Pain Rated 4-6 Radiology Results: ITS Impressions Knee X-Ray 04/11/21 11:07 IMPRESSION: 1. Total left knee arthroplasty in near-anatomic alignment. Labs Labs: Laboratory Results - last 24 hr 04/12/21 04/12/21 05:09 05:09 WBC 13.0 H RBC 3.49 L Hgb 9.7 L D Hct 31.7 L MCV 90.8 MCH 27.8 MCHC 30.6 L RDW 14.6 H Plt Count 166 MPV 11.4 H Immature Gran % (Auto) 0.5 Ne
[2021-04-13] VITALS (11 sets, daily range): BP systolic 128–152; BP diastolic 55–81; PULSE 51–94; RESP 18–22; TEMP 36.3–37.3; O2SAT 91–97
[2021-04-13] MEDS: oxyCODONE/ACETAMINOPHEN (*CRX) 5-325 MG TABLET 1 TABLET PO ×4 (00:58→17:36)
[2021-04-13] MEDS: oxyCODONE HCL (*CRX) 5 MG TAB IR 10 MG PO (04:09)
[2021-04-13 05:42] LABS: Basophils Percent Auto 0.4 % (0.2-1.2); Eosinophils Absolute Auto 0.1 K/mm3 (0-0.3); Hematocrit 31.7 % (37.0-47.0); Hemoglobin 9.9 g/dL (12.0-15.0); Immature Granulocyte Absolute 0.04 K/mm3 (0.00-0.031); Immature Granulocyte Percent A 0.4 % (0-0.5); Lymphocytes Percent Auto 11.8 % (18.3-44.2); Mean Corpuscular HGB Conc 31.2 g/dl (32-36); Mean Corpuscular Hemoglobin 27.7 pg (26-34); Mean Corpuscular Volume 88.5 fl (80-100); Mean Platelet Volume 11.2 fl (7.4-10.4); Monocytes Absolute Auto 0.6 K/mm3 (0.1-0.6); Monocytes Percent Auto 6.3 % (2.6-8.5); Neutrophils Absolute Auto 8.1 K/mm3 (1.3-6.7); Neutrophils Percent Auto 80.1 % (45.5-73.1); Platelet Count Result 188 k/mm3 (150-375); Red Blood Count 3.58 M/mm3 (4.2-5.4); Red Cell Distribution Width 14.6 % (11.5-14.5); White Blood Count 10.1 K/mm3 (4.5-10.0)
[2021-04-13 05:56] LABS: Alanine Aminotransferase 22 U/L (4-35); Albumin Level 3.6 g/dL (3.5-5.1); Alkaline Phosphatase 75 U/L (38-126); Anion Gap 7 mmol/L (8-16); Aspartate Amino Transferase 24 U/L (14-36); Bilirubin,Total 1.2 mg/dL (0.2-1.3); Blood Urea Nitrogen 15 mg/dL (7-17); Calcium 9.2 mg/dL (8.4-10.2); Carbon Dioxide 27 mmol/L (22-30); Chloride 98 mmol/L (98-107); Estimated CRCL calculation 76 ml/min; Estimated Glomerular Filt Rate > 60; Glucose 124 mg/dL (65-105); Magnesium 1.9 mg/dL (1.6-2.3); Potassium 3.8 mmol/L (3.4-5.0); Sodium 132 mmol/L (137-145)
--- NOTE | 2021-04-13 09:20 | PM.PNORT ---
Progress Note: A&P Assessment and Plan (1) S/P total knee arthroplasty: Qualifiers: Laterality: left Qualified Code(s): Z96.652 - Presence of left artificial knee joint Code(s): Z96.659 - Presence of unspecified artificial knee joint Status: Acute Assessment and Plan: POD #2: Left TKA Patient reports having had a fall yesterday while walking to the bathroom. She states that she felt that she had to go to the bathroom abruptly and between the bed and the door to the bathroom she had a fall onto the left knee. Per the nursing staff, this fall was unwitnessed. She was never found on the floor in the room. The patient states that this could have possibly been a dream. Incision of the left knee is well-approximated. No ecchymosis or acute bleeding. She is diffusely tender which is consistent with left total knee arthroplasty. We will obtain left knee radiographs and left lower extremity Doppler at this time. Continue PT and OT with weight-bearing as tolerated. High fall risk. Bed alarm. Continue pain control. Ice knee. SCDs. Incentive Spirometry. DVT prophylaxis. Monitor dressing. Change prior to discharge. Dispo: Home with Home Health pending progress with PT/OT. Subjective Subjective Date/Time Seen: 04/13/21 0840 POD #2: Left TKA Patient reports improvement overall condition today. She reports improvement in pain. She does note a fall which she said happened yesterday when she was ambulating to the bathroom independently. This fall was unwitnessed and her bed alarm did not go off per the nursing staff. She states that she did fall directly onto the knee. She is concerned about her knee and calf pain today. She is hopeful for discharge home today or tomorrow. Review of Systems Review of Systems: All systems reviewed & are unremarkable except as noted in HPI and below Constitutional: Constitutional: Denies fever(s) and Denies headache(s) ENT: Denies headache(s) Cardiovascular: Cardiovascular: Denies chest pain, Denies diaphoresis, Denies palpitations and Denies dyspnea Respiratory: Respiratory: Denies dyspnea Gastrointestinal: Gastrointestinal: Denies abdominal pain, Denies constipation, Denies nausea and Denies vomiting Genitourinary: Genitourinary: Reports nocturia and Denies dysuria Musculoskeletal: Musculoskeletal: Reports arthralgias (Left Knee ) and Reports joint swelling (Left Knee ) Neurologic: Denies headache(s) Endocrine: Endocrine: Denies palpitations Exam Const: General: comfortable and no acute distress Resp: Effort & Inspection: normal respiratory effort Cardio: Rate: regular rate Rhythm: regular rhythm GI: GI Palp: Yes Soft to palpation, No Tenderness to palpation present (GI) and No Guarding due to palpation present (GI) Skin: Wounds: wounds noted Other: Incision c/d/i. No surrounding redness/warmth. No hematoma. Mild ecchymosis. No wound dehiscence Neuro: Cognition (Neuro): normal cognition Other: NV intact aside from block. Moves toes. Sensation intact to light touch. +ankle dorsiflexion/plantarflexion. Extrem: Right upper extremity: normal to inspection, full ROM and normal capillary refill Left upper extremity: normal to inspection, full ROM and normal capillary refill Right lower extremity: normal to inspection, full ROM and knee Details: normal to inspection and normal ROM; no tenderness and no swelling Left lower extremity: normal to inspection, full ROM, knee Details: tenderness, swelling, abnormal ROM (ROM limited due to pain/consistent with recent surgery ) and other, lower leg ( Calf pain), ankle ( positive ankle dorsiflexion /plantar flexion) and foot ( 2+ pedal pulses, sensation intact to light touch) Other: Incision left TKA dressing c/d/i. No hematoma. No signs of infection. No wound dehiscence. Psych: Mental Status: mental status grossly normal Objective Data Vital Signs Vital Signs: Vital Signs - 24 hr 04/12/21 10:00 07
--- NOTE | 2021-04-13 09:33 | P.PNIM_ITS ---
Progress Note: A&P Assessment and Plan (1) Left knee DJD: Qualifiers: Osteoarthritis type: primary Qualified Code(s): M17.12 - Unilateral primary osteoarthritis, left knee Code(s): M17.12 - Unilateral primary osteoarthritis, left knee Status: Acute Assessment and Plan: * Postoperative day 1 status post left total knee arthroplasty. * Incision bandage is dry intact. Some swelling noted * Wound care and pain control will be deferred to Dr. Yu as well as DVT prophylaxis. * Pain: Adriana code own 10 mg p.o. Q 4 p.r.n., Percocet 5/325 Q 4 p.r.n., Tylenol 1000 mg p.o. q.6 p.r.n. * antiemetic: Zofran 4 mg IV Q 4 p.r.n. * bowel: Colace 100 mg p.o. b.i.d., * antibiotic: supple is Radha 2 g q.8 x3 bags * DVT prophylaxis aspirin 650 mg p.o. daily * GI prophylactic: Famotidine 20 mg p.o. q.12 * Continous cold flow therapy to the left knee * PT/OT consulted. (2) Hypertension: Code(s): I10 - Essential (primary) hypertension Status: Acute Assessment and Plan: * blood pressure today 135/62, probably related to pain * continue carvedilol 3.125 mg p.o. b.i.d., hydrochlorothiazide 25 mg p.o. q.day, lisinopril 20 mg p.o. q.day * trend blood pressures * adjust medications as needed (3) Coronary artery disease: Code(s): I25.10 - Atherosclerotic heart disease of [place] coronary artery without angina pectoris Status: Acute Assessment and Plan: * No acute issues. * Continue beta-gerald. * Resume aspirin when okay with Dr. Yu. (4) Obstructive sleep apnea: Code(s): G47.33 - Obstructive sleep apnea (adult) (pediatric) Status: Inactive Assessment and Plan: * CPAP will be provided for the patient to use while hosptialized. (5) Fall: Code(s): W19.XXXA - Unspecified fall, initial encounter Status: Acute Assessment and Plan: * Patient stated that she fell last night when she awoke from a deep sleep and had to breen to the bathroom * Bed/chair alarms * Fall precautions * BSC * PT/OT already seeing Subjective Date/time seen: 04/13/21 09:00 Interval history: Patient is 75-year-old female with a past medical history of hyperlipidemia, sleep apnea, GERD, anxiety, hypertension who is postop day 2 for a left knee replacement. Patient seems a little different today. However she did state that she went to sleep last night and got up because she had to the bathroom and when she was walking to the bathroom she fell. However according to nursing she is not sure if she fell and stated that she could of been dreaming. Patient did state that she does have issues with deep sleep and getting up out of bed and not knowing what is going on. Patient did state that her knee was swollen and she was in a lot of pain today. she does rate her pain about a 4 out of 10 stating that it is more pressure. She also denies getting good rest overnight She also stated that she felt like her scab got a little soft however when I viewed it she had a dressing on that had no drainage noted on it. She did denied chest pain, shortness of breath, nausea, vomiting, abdominal pain, sweats, chills, fevers, lightheadedness, dizziness, numbness and tingling. Review of Systems Review of Systems: All systems reviewed & are unremarkable except as noted in HPI and below Exam Const: General: cooperative, healthy appearing, comfortable, no acute distress, well developed, alert, awake, Physic
--- NOTE | 2021-04-13 09:33 | PM.IMPN ---
Progress Note: A&P Assessment and Plan (1) Left knee DJD: Qualifiers: Osteoarthritis type: primary Qualified Code(s): M17.12 - Unilateral primary osteoarthritis, left knee Code(s): M17.12 - Unilateral primary osteoarthritis, left knee Status: Acute Assessment and Plan: Postoperative day 1 status post left total knee arthroplasty. Incision bandage is dry intact. Some swelling noted Wound care and pain control will be deferred to Dr. Yu as well as DVT prophylaxis. Pain: Adriana code own 10 mg p.o. Q 4 p.r.n., Percocet 5/325 Q 4 p.r.n., Tylenol 1000 mg p.o. q.6 p.r.n. antiemetic: Zofran 4 mg IV Q 4 p.r.n. bowel: Colace 100 mg p.o. b.i.d., antibiotic: supple is Radha 2 g q.8 x3 bags DVT prophylaxis aspirin 650 mg p.o. daily GI prophylactic: Famotidine 20 mg p.o. q.12 Continous cold flow therapy to the left knee PT/OT consulted. (2) Hypertension: Code(s): I10 - Essential (primary) hypertension Status: Acute Assessment and Plan: blood pressure today 135/62, probably related to pain continue carvedilol 3.125 mg p.o. b.i.d., hydrochlorothiazide 25 mg p.o. q.day, lisinopril 20 mg p.o. q.day trend blood pressures adjust medications as needed (3) Coronary artery disease: Code(s): I25.10 - Atherosclerotic heart disease of [place] coronary artery without angina pectoris Status: Acute Assessment and Plan: No acute issues. Continue beta-gerald. Resume aspirin when okay with Dr. Yu. (4) Obstructive sleep apnea: Code(s): G47.33 - Obstructive sleep apnea (adult) (pediatric) Status: Inactive Assessment and Plan: CPAP will be provided for the patient to use while hosptialized. (5) Fall: Code(s): W19.XXXA - Unspecified fall, initial encounter Status: Acute Assessment and Plan: Patient stated that she fell last night when she awoke from a deep sleep and had to breen to the bathroom Bed/chair alarms Fall precautions BSC PT/OT already seeing Subjective Date/time seen: 04/13/21 09:00 Interval history: Patient is 75-year-old female with a past medical history of hyperlipidemia, sleep apnea, GERD, anxiety, hypertension who is postop day 2 for a left knee replacement. Patient seems a little different today. However she did state that she went to sleep last night and got up because she had to the bathroom and when she was walking to the bathroom she fell. However according to nursing she is not sure if she fell and stated that she could of been dreaming. Patient did state that she does have issues with deep sleep and getting up out of bed and not knowing what is going on. Patient did state that her knee was swollen and she was in a lot of pain today. she does rate her pain about a 4 out of 10 stating that it is more pressure. She also denies getting good rest overnight She also stated that she felt like her scab got a little soft however when I viewed it she had a dressing on that had no drainage noted on it. She did denied chest pain, shortness of breath, nausea, vomiting, abdominal pain, sweats, chills, fevers, lightheadedness, dizziness, numbness and tingling. Review of Systems Review of Systems: All systems reviewed & are unremarkable except as noted in HPI and below Exam Const: General: cooperative, healthy appearing, comfortable, no acute distress, well developed, alert, awake, Physically active and anxious Nutritional Appearance: well nourished Orientation/consciousness: oriented to person, oriented to place, oriented to time and patient oriented x3 Limitations: no limitations HENMT: Head: normal to inspection Ears: hearing grossly normal bilaterally General nose exam: Normal external nose present Mouth: Yes Normal oral and palatal mucosa present, Yes lip normal and Yes tongue normal Teeth and gingiva: abnormal tooth and associated gingiv
[2021-04-13] MEDS: DOCUSATE SODIUM 100 MG CAPSULE PO ×2 (10:02→17:36)
[2021-04-13] MEDS: hydroCHLOROthiazide 25 MG TABLET PO (10:02)
[2021-04-13] MEDS: ASPIRIN 325 MG ENTERIC TABLET 650 MG PO (10:02)
[2021-04-13] MEDS: ESCITALOPRAM OXALATE 10 MG TABLET PO (10:02)
[2021-04-13] MEDS: MAGNESIUM OXIDE 200 MG TABLET PO (10:02)
[2021-04-13] MEDS: OXYBUTYNIN CHLORIDE 5 MG TABLET PO ×3 (10:03→17:36)
[2021-04-13] MEDS: carvediloL 3.125 MG TABLET PO ×2 (10:03→17:36)
[2021-04-13] MEDS: lisinopriL 20 MG TABLET PO (10:03)
[2021-04-13] MEDS: FAMOTIDINE 20 MG TABLET PO ×2 (10:03→21:19)
--- NOTE | 2021-04-13 13:35 | PC.NURSE ---
Called to ask Dr. Yu about the patient's x-ray stating that there is a non-displaced fracture of the lateral femoral condyle. Per Dr. Yu the radiograph is not any different from the patient's post-op radiographs and she is still okay to use the leg and work with PT/OT at this time. Myra Nick NP came and discussed the information with the patient.
[2021-04-14] VITALS (9 sets, daily range): BP systolic 98–140; BP diastolic 47–76; PULSE 50–86; RESP 16–18; TEMP 35.8–37; O2SAT 93–96
[2021-04-14 06:38] LABS: Basophils Percent Auto 0.4 % (0.2-1.2); Eosinophils Absolute Auto 0.1 K/mm3 (0-0.3); Eosinophils Percent Auto 1.2 % (0-4.4); Hematocrit 33.2 % (37.0-47.0); Hemoglobin 10.5 g/dL (12.0-15.0); Immature Granulocyte Absolute 0.05 K/mm3 (0.00-0.031); Immature Granulocyte Percent A 0.5 % (0-0.5); Lymphocytes Absolute Auto 1.54 K/mm3 (0.9-3.2); Mean Corpuscular HGB Conc 31.6 g/dl (32-36); Mean Corpuscular Volume 88.5 fl (80-100); Mean Platelet Volume 10.5 fl (7.4-10.4); Monocytes Absolute Auto 0.6 K/mm3 (0.1-0.6); Monocytes Percent Auto 5.9 % (2.6-8.5); Neutrophils Absolute Auto 7.3 K/mm3 (1.3-6.7); Platelet Count Result 207 k/mm3 (150-375); Red Blood Count 3.75 M/mm3 (4.2-5.4); Red Cell Distribution Width 14.6 % (11.5-14.5); White Blood Count 9.6 K/mm3 (4.5-10.0)
[2021-04-14 06:49] LABS: Alanine Aminotransferase 48 U/L (4-35); Alkaline Phosphatase 107 U/L (38-126); Anion Gap 7 mmol/L (8-16); Aspartate Amino Transferase 61 U/L (14-36); Bilirubin,Total 1.5 mg/dL (0.2-1.3); Blood Urea Nitrogen 13 mg/dL (7-17); Calcium 9.4 mg/dL (8.4-10.2); Carbon Dioxide 30 mmol/L (22-30); Chloride 97 mmol/L (98-107); Estimated CRCL calculation 66 ml/min; Estimated Glomerular Filt Rate > 60; Glucose 128 mg/dL (65-105); Magnesium 2.1 mg/dL (1.6-2.3); Potassium 3.7 mmol/L (3.4-5.0); Sodium 134 mmol/L (137-145)
--- NOTE | 2021-04-14 07:57 | PM.PNORT ---
Progress Note: A&P Assessment and Plan (1) S/P total knee arthroplasty: Qualifiers: Laterality: left Qualified Code(s): Z96.652 - Presence of left artificial knee joint Code(s): Z96.659 - Presence of unspecified artificial knee joint Status: Acute Assessment and Plan: POD #3: Left TKA Doppler of the LLE negative for DVT. Radiographs reveal a nondisplaced fracture of lateral aspect of lateral femoral condyle at the attachment of fibular collateral ligament. Reviewed radiographs of the left knee with attending MD, Dr. Yu. Radiographs consistent with avulsion fracture. She does have tenderness with palpation over the lateral femoral condyle. Mild to moderate swelling. Thigh/calf soft. Patient to continue WBAT at this time. ROM as tolerated, limit by pain. May consider hinged knee brace if complaints of instability. Continue PT and OT with weight-bearing as tolerated. High fall risk. Bed alarm. Continue pain control. Ice knee. SCDs. Incentive Spirometry. DVT prophylaxis. Monitor dressing. Change prior to discharge. Dispo: Home with Home Health today. Subjective Subjective Date/Time Seen: 04/14/21 07:57 POD #3: LEFT TKA No new complaints. Improvement in pain. Working well with PT/OT. Hopeful for discharge home today. Review of Systems Review of Systems: All systems reviewed & are unremarkable except as noted in HPI and below Constitutional: Constitutional: Denies fever(s) and Denies headache(s) ENT: Denies headache(s) Cardiovascular: Cardiovascular: Denies chest pain, Denies diaphoresis, Denies palpitations and Denies dyspnea Respiratory: Respiratory: Denies dyspnea Gastrointestinal: Gastrointestinal: Denies abdominal pain, Denies constipation, Denies nausea and Denies vomiting Genitourinary: Genitourinary: Reports nocturia and Denies dysuria Musculoskeletal: Musculoskeletal: Reports arthralgias (Left Knee ) and Reports joint swelling (Left Knee ) Neurologic: Denies headache(s) Endocrine: Endocrine: Denies palpitations Exam Const: General: comfortable and no acute distress Resp: Effort & Inspection: normal respiratory effort Cardio: Rate: regular rate Rhythm: regular rhythm GI: GI Palp: Yes Soft to palpation, No Tenderness to palpation present (GI) and No Guarding due to palpation present (GI) Skin: Wounds: wounds noted Other: Incision c/d/i. No surrounding redness/warmth. No hematoma. Mild ecchymosis. No wound dehiscence Neuro: Cognition (Neuro): normal cognition Other: NV intact. Moves toes. Sensation intact to light touch. +ankle dorsiflexion/plantarflexion. Extrem: Right upper extremity: normal to inspection, full ROM and normal capillary refill Left upper extremity: normal to inspection, full ROM and normal capillary refill Right lower extremity: normal to inspection, full ROM and knee Details: normal to inspection and normal ROM; no tenderness and no swelling Left lower extremity: normal to inspection, full ROM, knee Details: tenderness, swelling, abnormal ROM (ROM limited due to pain/consistent with recent surgery ) and other, lower leg ( Calf pain), ankle ( positive ankle dorsiflexion /plantar flexion) and foot ( 2+ pedal pulses, sensation intact to light touch) Other: Incision left TKA dressing c/d/i. No hematoma. No signs of infection. No wound dehiscence. Tenderness to the lateral femoral condyle with palpation. Knee with stability when ambulating. No significant ecchymosis. Moderate swelling. Thigh/Calf Soft. Psych: Mental Status: mental status grossly normal Objective Data Vital Signs Vital Signs: Vital Signs - 24 hr 04/13/21 08:00 04/13/21 09:54 04/13/21 10:03 Temperature 36.7 C Pulse Rate 66 86 Respiratory Rate 18 Blood Pressure 135/62 Pulse Oximetry 92 91 04/13/21 12:00 04/13/21 16:00 04/13/21 17:36 Temperature 36.7 C 36.6 C Pulse Rate 51 L 60 78 Respiratory Rate 18 18 Blood Pressure 132/65 145/55 H Pulse Oxi
[2021-04-14] MEDS: ASPIRIN 325 MG ENTERIC TABLET 650 MG PO (08:22)
[2021-04-14] MEDS: lisinopriL 20 MG TABLET PO (08:22)
[2021-04-14] MEDS: hydroCHLOROthiazide 25 MG TABLET PO (08:23)
[2021-04-14] MEDS: carvediloL 3.125 MG TABLET PO ×2 (08:23→16:43)
[2021-04-14] MEDS: ESCITALOPRAM OXALATE 10 MG TABLET PO (08:23)
[2021-04-14] MEDS: FAMOTIDINE 20 MG TABLET PO (08:23)
[2021-04-14] MEDS: MAGNESIUM OXIDE 200 MG TABLET PO (08:23)
[2021-04-14] MEDS: oxyCODONE/ACETAMINOPHEN (*CRX) 5-325 MG TABLET 1 TABLET PO ×2 (08:23→16:43)
[2021-04-14] MEDS: DOCUSATE SODIUM 100 MG CAPSULE PO ×2 (08:23→16:43)
[2021-04-14] MEDS: OXYBUTYNIN CHLORIDE 5 MG TABLET PO ×3 (08:23→16:43)
--- NOTE | 2021-04-14 11:50 | P.PNIM_ITS ---
Progress Note: A&P Assessment and Plan (1) Left knee DJD: Qualifiers: Osteoarthritis type: primary Qualified Code(s): M17.12 - Unilateral primary osteoarthritis, left knee Code(s): M17.12 - Unilateral primary osteoarthritis, left knee Status: Acute Assessment and Plan: * Postoperative day 2 status post left total knee arthroplasty. * Incision bandage is dry intact. Some swelling noted * Wound care and pain control will be deferred to Dr. Yu as well as DVT prophylaxis. * Pain: Adriana code own 10 mg p.o. Q 4 p.r.n., Percocet 5/325 Q 4 p.r.n., Tylenol 1000 mg p.o. q.6 p.r.n. * antiemetic: Zofran 4 mg IV Q 4 p.r.n. * bowel: Colace 100 mg p.o. b.i.d., * antibiotic: supple is Radha 2 g q.8 x3 bags * DVT prophylaxis aspirin 650 mg p.o. daily * GI prophylactic: Famotidine 20 mg p.o. q.12 * Continous cold flow therapy to the left knee * PT/OT consulted. (2) Hypertension: Code(s): I10 - Essential (primary) hypertension Status: Acute Assessment and Plan: * blood pressure today 106/55, probably related to pain * continue carvedilol 3.125 mg p.o. b.i.d., hydrochlorothiazide 25 mg p.o. q.day, lisinopril 20 mg p.o. q.day * trend blood pressures * adjust medications as needed (3) Coronary artery disease: Code(s): I25.10 - Atherosclerotic heart disease of [place] coronary artery without angina pectoris Status: Acute Assessment and Plan: * No acute issues. * Continue beta-gerald. * Resume aspirin when okay with Dr. Yu. (4) Obstructive sleep apnea: Code(s): G47.33 - Obstructive sleep apnea (adult) (pediatric) Status: Inactive Assessment and Plan: * CPAP will be provided for the patient to use while hosptialized. (5) Fall: Code(s): W19.XXXA - Unspecified fall, initial encounter Status: Acute Assessment and Plan: * Patient stated that she fell last night when she awoke from a deep sleep and had to breen to the bathroom * Bed/chair alarms * Fall precautions * BSC * PT/OT already seeing * Patient has positive orthostatic blood pressures * probably related to her pain medication * DC lisinopril for right now * patient will need to resume once she stops taking her pain medicine Subjective Date/time seen: 04/14/21 11:50 Interval history: Patient is 75-year-old female with a past medical history of hyperlipidemia, sleep apnea, GERD, anxiety, hypertension who is postop day 3 for a left knee replacement. today patient said that she was doing a lot better however she did have pain still in her leg edema when she moves it. She states that it is a 6/10 mostly pressure inside the middle of her knee. She also stated that her appetite is decreased however she still eating. No other complaints from this patient at this time. She did denied chest pain, shortness of breath, nausea, vomiting, abdominal pain, sweats, chills, fevers, lightheadedness, dizziness, numbness and tingling. Review of Systems Review of Systems: All systems reviewed & are unremarkable except as noted in HPI and below Exam Const: General: cooperative, healthy appearing, comfortable, no acute distress, well developed, alert, awake, Physically active and anxious Nutritional Appearance: well nourished Orientation/consciousness: oriented to person, oriented to place, oriented to time and patient oriented x3 Limitations: no limitations YAKOV: He
--- NOTE | 2021-04-14 11:50 | PM.IMPN ---
Progress Note: A&P Assessment and Plan (1) Left knee DJD: Qualifiers: Osteoarthritis type: primary Qualified Code(s): M17.12 - Unilateral primary osteoarthritis, left knee Code(s): M17.12 - Unilateral primary osteoarthritis, left knee Status: Acute Assessment and Plan: Postoperative day 2 status post left total knee arthroplasty. Incision bandage is dry intact. Some swelling noted Wound care and pain control will be deferred to Dr. Yu as well as DVT prophylaxis. Pain: Adriana code own 10 mg p.o. Q 4 p.r.n., Percocet 5/325 Q 4 p.r.n., Tylenol 1000 mg p.o. q.6 p.r.n. antiemetic: Zofran 4 mg IV Q 4 p.r.n. bowel: Colace 100 mg p.o. b.i.d., antibiotic: supple is Radha 2 g q.8 x3 bags DVT prophylaxis aspirin 650 mg p.o. daily GI prophylactic: Famotidine 20 mg p.o. q.12 Continous cold flow therapy to the left knee PT/OT consulted. (2) Hypertension: Code(s): I10 - Essential (primary) hypertension Status: Acute Assessment and Plan: blood pressure today 106/55, probably related to pain continue carvedilol 3.125 mg p.o. b.i.d., hydrochlorothiazide 25 mg p.o. q.day, lisinopril 20 mg p.o. q.day trend blood pressures adjust medications as needed (3) Coronary artery disease: Code(s): I25.10 - Atherosclerotic heart disease of [place] coronary artery without angina pectoris Status: Acute Assessment and Plan: No acute issues. Continue beta-gerald. Resume aspirin when okay with Dr. Yu. (4) Obstructive sleep apnea: Code(s): G47.33 - Obstructive sleep apnea (adult) (pediatric) Status: Inactive Assessment and Plan: CPAP will be provided for the patient to use while hosptialized. (5) Fall: Code(s): W19.XXXA - Unspecified fall, initial encounter Status: Acute Assessment and Plan: Patient stated that she fell last night when she awoke from a deep sleep and had to breen to the bathroom Bed/chair alarms Fall precautions BSC PT/OT already seeing Patient has positive orthostatic blood pressures probably related to her pain medication DC lisinopril for right now patient will need to resume once she stops taking her pain medicine Subjective Date/time seen: 04/14/21 11:50 Interval history: Patient is 75-year-old female with a past medical history of hyperlipidemia, sleep apnea, GERD, anxiety, hypertension who is postop day 3 for a left knee replacement. today patient said that she was doing a lot better however she did have pain still in her leg edema when she moves it. She states that it is a 6/10 mostly pressure inside the middle of her knee. She also stated that her appetite is decreased however she still eating. No other complaints from this patient at this time. She did denied chest pain, shortness of breath, nausea, vomiting, abdominal pain, sweats, chills, fevers, lightheadedness, dizziness, numbness and tingling. Review of Systems Review of Systems: All systems reviewed & are unremarkable except as noted in HPI and below Exam Const: General: cooperative, healthy appearing, comfortable, no acute distress, well developed, alert, awake, Physically active and anxious Nutritional Appearance: well nourished Orientation/consciousness: oriented to person, oriented to place, oriented to time and patient oriented x3 Limitations: no limitations HENMT: Head: normal to inspection Ears: hearing grossly normal bilaterally General nose exam: Normal external nose present Mouth: Yes Normal oral and palatal mucosa present, Yes lip normal and Yes tongue normal Teeth and gingiva: abnormal tooth and associated gingiva and poor dentition Eyes: General: appearance normal, both eyes and all related structures Neck: Neck: normal visual inspection, full ROM, trachea midline and supple Chest: Chest palpation & inspection: normal inspection of the chest
--- NOTE | 2021-04-17 13:06 | PM.DS ---
DS: Admitting Diagnosis Admitting Diagnosis Admitting Diagnosis: Left knee DJD DS: Discharge Diagnosis Discharge Diagnosis (1) S/P total knee arthroplasty: Qualifiers: Laterality: left Qualified Code(s): Z96.652 - Presence of left artificial knee joint Code(s): Z96.659 - Presence of unspecified artificial knee joint Status: Acute Assessment and Plan: POD #3: Left TKA Doppler of the LLE negative for DVT. Radiographs reveal a nondisplaced fracture of lateral aspect of lateral femoral condyle at the attachment of fibular collateral ligament. Reviewed radiographs of the left knee with attending MD, Dr. Yu. Radiographs consistent with avulsion fracture. She does have tenderness with palpation over the lateral femoral condyle. Mild to moderate swelling. Thigh/calf soft. Patient to continue WBAT at this time. ROM as tolerated, limit by pain. May consider hinged knee brace if complaints of instability. Continue PT and OT with weight-bearing as tolerated. High fall risk. Bed alarm. Continue pain control. Ice knee. SCDs. Incentive Spirometry. DVT prophylaxis. Monitor dressing. Change prior to discharge. Dispo: Home with Home Health today. DS: Summary Hospital Course Reason for hospitalization: left total knee arthroplasty Hospital Course: 75-year-old female admitted status post left total knee arthroplasty for postoperative medical management, pain control and mobilization with physical and occupational therapy. Patient had an unwitnessed fall on postop day 1 per patient report. She reported having fallen onto the left knee. Radiographs and a Doppler were obtained on postop day 2. Radiographs of the left knee revealed a nondisplaced fracture of the lateral femoral condyle at the attachment of fibular collateral ligament. radiographs consistent with an avulsion fracture. Patient does have tenderness over this area however she denies instability with physical and occupational therapy. She continued to progress well with PT and OT. She did have 1 orthostatic event on postop day 3 she was evaluated by the hospitalist service and was determined that she should stop her lisinopril upon discharge home. The hospitalist service felt that her orthostatic blood pressure with consistent with the combination of her antihypertensives and narcotics. Patient is to follow up with her primary care physician in 1 week. She was stable prior to discharge. She was cleared by PT and OT. She will follow up in the outpatient orthopedic clinic in approximately 2.5 weeks for re-evaluation and repeat radiographs. Status at Discharge Functional status at discharge: uses cane/walker Overall status at discharge: patient is progressing back to baseline Time Spent with Patient Time attestation: Total time spent providing and/or coordinating discharge services: Time spent: Less than 30 minutes Exam Const: General: comfortable and no acute distress Resp: Effort & Inspection: normal respiratory effort Cardio: Rate: regular rate Rhythm: regular rhythm GI: GI Palp: Yes Soft to palpation, No Tenderness to palpation present (GI) and No Guarding due to palpation present (GI) Skin: Wounds: wounds noted Other: Incision c/d/i. No surrounding redness/warmth. No hematoma. Mild ecchymosis. No wound dehiscence Neuro: Cognition (Neuro): normal cognition Other: NV intact. Moves toes. Sensation intact to light touch. +ankle dorsiflexion/plantarflexion. Extrem: Right upper extremity: normal to inspection, full ROM and normal capillary refill Left upper extremity: normal to inspection, full ROM and normal capillary refill Right lower extremity: normal to inspection, full ROM and knee Details: normal to inspection and normal ROM; no tenderness and no swelling Left lower extremity: normal to inspection, full ROM, knee Details: tenderness, swelling, abnormal ROM (ROM limited due to pain/consistent with recent surgery ) and other, lower le
== END 2021-04-14 18:12 | disposition home health service (06) ==
LOC: ANHSURGERY 13:48 → ANH2MED 13:48
PROVIDERS: Nurse Practitioner; Physician Assistant; Admitting Provider Orthopaedic Surgery; PCP Family Medicine; Visit Provider Orthopaedic Surgery
PROC: (CPT 27447; principal; 2021-04-11 08:30)
DX: M17.12 Unilateral primary osteoarthritis, left knee (principal); G89.18 Other acute postprocedural pain; S72.425A Nondisplaced fracture of lateral condyle of left femur, initial encounter for closed fracture; W01.0XXA Fall on same level from slipping, tripping and stumbling without subsequent striking against object, initial encounter; M79.662 Pain in left lower leg; I10 Essential (primary) hypertension; I25.10 Atherosclerotic heart disease of native coronary artery without angina pectoris; D64.9 Anemia, unspecified; F41.8 Other specified anxiety disorders; K21.9 Gastro-esophageal reflux disease without esophagitis; G47.33 Obstructive sleep apnea (adult) (pediatric); K58.9 Irritable bowel syndrome, unspecified; M81.0 Age-related osteoporosis without current pathological fracture; I25.2 Old myocardial infarction; Z95.5 Presence of coronary angioplasty implant and graft
CPT/HCPCS: 27447; 64447; 36415; 73560; 80048; 80053; 80307; 81001; 83036; 83735; 85025; 86850; 86900; 86901; 87081; 93971; 97110; 97116; 97161; 97165; 97530; 97535; A9270; C1713; C1776; G0378; J0171; J0690; J1100; J1200; J2250; J2405; J2704; J2795; J3010; J3370; J7120

== ENCOUNTER 2021-06-28 13:39 | Outpatient (CLI) | payer MEDICARE, SELFPAY ==
--- NOTE | ~2021-06-28 | MMUS_ITS ---
EXAMINATION: MM diagnostic [place] BI w maximus, US breast BI limited HISTORY: Follow-up bilateral breast masses TECHNIQUE: Additional 3-D tomosynthesis images of the breasts were performed and synthetic 2-D images were generated. CAD analysis was submitted and interpreted. High resolution limited bilateral breast ultrasound was performed. COMPARISON: Comparison to multiple prior studies sequentially, with oldest reviewed study dated 11/2011. BREAST PARENCHYMAL COMPOSITION: Breast composed of scattered areas of fibroglandular density. FINDINGS: MAMMOGRAPHIC FINDINGS: There are stable bilateral breast asymmetries in the outer aspect of both breasts. There are benign-a ppearing right breast calcifications. ULTRASOUND: Limited right breast ultrasound: At 11:00, 2 cm from the nipple, there is an oval cystic mass measuri ng 3 mm with posterior shadowing, likely a complicated cyst. Limited left breast ultrasound: At 1:00, 2 cm from the nipple, there is an oval circumscribed hypoech oic 3 mm mass with low-level internal echoes, no significant posterior features and no internal vascu larity, likely benign. IMPRESSION: 1. Probable benign bilateral breast masses. 2. Recommend 6 month follow-up diagnostic bilateral mammogram and ultrasound BI-RADS category 3, probably benign findings. Reviewed, dictated and finalized at location A. IMPRESSION: 1. Probable benign bilateral breast masses. 2. Recommend 6 month follow-up diagnostic bilateral mammogram and ultrasound BI-RADS category 3, probably benign findings.
== END 2021-06-28 13:40 | disposition home or self-care (01) ==
LOC: ANHIMG 13:42
PROVIDERS: PCP Family Medicine; Visit Provider Family Medicine
DX: R92.8 Other abnormal and inconclusive findings on diagnostic imaging of breast (principal)
CPT/HCPCS: 76642; 77062; 77066; G0279

== ENCOUNTER 2021-07-27 23:32 | Emergency (ER) | payer MEDICARE, SELFPAY ==
--- NOTE | ~2021-07-27 | XR_ITS ---
EXAMINATION: XR chest 1V portable INDICATION: Sternal chest pain TECHNIQUE: Portable AP chest at 0026 hours COMPARISON: 02/21/2021 FINDINGS: The lungs are free of acute opacities. There is no pleural effusion or pneumothorax. The ca rdiomediastinal silhouette is normal. Sclerosis at the first costochondral junction is noted. IMPRESSION: 1. No acute cardiopulmonary abnormality. Reviewed, dictated and finalized at location A.
--- NOTE | ~2021-07-27 | CT_ITS ---
EXAMINATION: CT abdomen pelvis w con INDICATION: Upper abdominal pain, history of pancreatic cancer TECHNIQUE: Computed tomographic images of the abdomen and pelvis were obtained after the administrati on of 100 cc of Omnipaque 350 intravenous contrast. The dose-length product (DLP) was 672.81 mGy-cm. Automated exposure control and iterative reconstruction technique were employed. COMPARISON: 03/28/2021, 11/24/2017 FINDINGS: Minimal dependent atelectasis is present in the lung bases. The heart size is normal. The g allbladder is surgically absent. Surgical changes in the upper abdomen likely related to Whipple proc edure given patient's history of pancreatic cancer The liver and adrenal glands are normal. There are unchanged small hypoattenuating areas throughout the spleen, likely old granulomatous disease. There are peripelvic cysts of the kidneys. There is a 7 mm cyst of the left kidney. No pathologically enla rged abdominal or pelvic lymph nodes are identified. The appendix is normal. There is no free intrape ritoneal gas or evidence of bowel obstruction. IMPRESSION: 1. No CT correlate for the patient's symptoms. Reviewed, dictated and finalized at location A.
--- NOTE | 2021-07-27 00:12 | ECG_ITS ---
Measurements Intervals [place] Rate: 59 P: 58 [place]: 191 QRS: 3 QRSD: 105 T: 12 QT: 462 QTc: 458 Interpretive Statements SINUS BRADYCARDIA FREQUENT VENTRICULAR PREMATURE COMPLEXES BORDERLINE R WAVE PROGRESSION, ANTERIOR LEADS CONSIDER INFERIOR INFARCT, AGE INDETERMINATE BORDERLINE T WAVE ABNORMALITY- ANTERIOR LEADS BASELINE ARTIFACT- I, II, AVR, AVL, AVF ABNORMAL ECG Electronically Signed On 07-28-2021 6:41:00 CDT by Stuart Austin D.O.
[2021-07-27 23:37] VITALS: BP 181/92; PULSE 56; RESP 20; TEMP 36.6; O2SAT 98
[2021-07-27 23:44] VITALS: BP 181/92; PULSE 56; RESP 18; TEMP 36.6; O2SAT 96
[2021-07-28 00:22] LABS: Basophils Percent Auto 0.4 % (0.2-1.2); Eosinophils Absolute Auto 0.2 K/mm3 (0-0.3); Hematocrit 40.5 % (37.0-47.0); Hemoglobin 12.6 g/dL (12.0-15.0); Immature Granulocyte Absolute 0.02 K/mm3 (0.00-0.031); Immature Granulocyte Percent A 0.2 % (0-0.5); Lymphocytes Absolute Auto 2.16 K/mm3 (0.9-3.2); Lymphocytes Percent Auto 23.1 % (18.3-44.2); Mean Corpuscular HGB Conc 31.1 g/dl (32-36); Mean Corpuscular Hemoglobin 27.7 pg (26-34); Mean Platelet Volume 11.2 fl (7.4-10.4); Monocytes Absolute Auto 0.4 K/mm3 (0.1-0.6); Monocytes Percent Auto 3.7 % (2.6-8.5); Neutrophils Absolute Auto 6.6 K/mm3 (1.3-6.7); Neutrophils Percent Auto 70.6 % (45.5-73.1); Platelet Count Result 204 k/mm3 (150-375); Red Blood Count 4.55 M/mm3 (4.2-5.4); Red Cell Distribution Width 14.3 % (11.5-14.5); White Blood Count 9.4 K/mm3 (4.5-10.0)
[2021-07-28 00:41] LABS: INR 0.9; Prothrombin Time 11.6 Seconds (11.1-14.7)
[2021-07-28 00:42] LABS: Partial Thromboplastin Time 26.7 SECONDS (22.3-36.8)
--- NOTE | 2021-07-28 01:19 | ED.GENADULT ---
HPI - General Adult General Chief complaint: Chest Pain Stated complaint: chest /abd pain Time Seen by Provider: 07/27/21 23:55 Source: patient, RN notes reviewed and old records reviewed Mode of arrival: EMS Limitations: no limitations History of Present Illness HPI narrative: This is a 75 year old female with history of multiple medical problems which includes hypertension, CAD who presents for evaluation of epigastric . She reports she was watching TV when she developed sudden onset epigastric squeezing that was nonradiating. She took 2 aspirin at onset of pain and she called 911. Her pain last approximately 10 minutes. She denies diaphoresis, nausea or vomiting with pain. She reports her squeezing pain has resolved but she has mild diffuse abdominal soreness rated 2/10 now. . She has had similar episodes like this before and she has been told it is stress. She states this pain is different from her chest pain that required stent placement. She states she has normal stress test in November 2020. She denies shortness of breath, cough or fever. Related Data Home Medications Medication Instructions Recorded Confirmed levocetirizine 10 mg PO DAILY 08/28/19 05/11/21 oxybutynin chloride 5 mg PO TID 08/28/19 05/11/21 hydrochlorothiazide 25 mg PO QAM 09/28/20 05/11/21 carvedilol 3.125 mg tablet 3.125 mg PO BID tablet 01/26/21 05/11/21 magnesium 200 mg tablet 200 mg PO DAILY 01/26/21 05/11/21 diclofenac sodium 75 mg PO BID PRN 02/22/21 05/11/21 escitalopram oxalate 10 mg PO DAILY 02/22/21 05/11/21 [id number] 1 mg 1 tablet PO QAM 03/30/21 05/11/21 tablet Allergies Allergy/AdvReac Type Severity Reaction Status Date / Time codeine Allergy Unknown Vomiting, Verified 05/11/21 15:41 itching, swelling Review of Systems Review of Systems: All systems reviewed & are unremarkable except as noted in HPI and below PMFSH Past Medical History Medical History Anemia History of blood transfusion. Anxiety Anxiety Arthritis Coronary artery disease Status post stent 2008. Negative stress test in 2012. No significant disease on [facility] in January 2018. Patient of Dr. Sharpe. Depression Depression Dyslipidemia Finger fracture, left Gastric ulcer Gastroesophageal reflux disease History of blood transfusion Hypertension Irritable bowel syndrome Kidney stones Left bundle branch block Migraines Obstructive sleep apnea Osteoarthritis Osteoporosis Pancreatic cancer Status post Whipple. Paroxysmal supraventricular tachycardia Status post ablation in 2012. 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 Left heart catheterization was unremarkable. Diagnosed with stress-induced cardiomyopathy, EF 40-45%. Normal systolic function with an EF of 60 to 65% on echo in August 2020. Urinary urgency Surgical History Surgical History History of arthroplasty of left knee (04/11/21) History of arthroscopy of both knees History of bilateral breast reduction surgery History of cardiac catheterization (2017) History of cardiac radiofrequency ablation For paroxysmal supraventricular tachycardia. History of cholecystectomy History of coronary artery stent placement (2008) History of hysterectomy Due to dysfunctional uterine bleeding. History of orthopedic surgery Right thumb pinning in April 2012. Bilateral foot surgery. History of tonsillectomy History of tubal ligation History of Whipple procedure S/P total knee arthroplasty Family History Family History Mother Colon cancer Heart disease Hyperlipidemia Grandparent Hypertension Father Unknown family medical history Social History Social History (
[2021-07-28 01:39] LABS: Alanine Aminotransferase 25 U/L (4-35); Albumin Level 4.4 g/dL (3.5-5.1); Alkaline Phosphatase 102 U/L (38-126); Anion Gap 13 mmol/L (8-16); Aspartate Amino Transferase 33 U/L (14-36); Bilirubin,Total 0.9 mg/dL (0.2-1.3); Blood Urea Nitrogen 20 mg/dL (7-17); Calcium 9.5 mg/dL (8.4-10.2); Carbon Dioxide 23 mmol/L (22-30); Chloride 106 mmol/L (98-107); Estimated CRCL calculation 54 ml/min; Estimated Glomerular Filt Rate > 60; Glucose 157 mg/dL (65-110); Lipase 27 U/L (23-300); Potassium 3.8 mmol/L (3.4-5.0); Sodium 142 mmol/L (137-145)
[2021-07-28 01:50] LABS: Troponin I < 0.012 ng/mL (0.000-0.034)
[2021-07-28 02:27] VITALS: BP 148/84; PULSE 58; RESP 16; O2SAT 100
[2021-07-28 04:23] LABS: Troponin I < 0.012 ng/mL (0.000-0.034)
[2021-07-28 04:48] VITALS: PULSE 59; RESP 16; O2SAT 98
== END 2021-07-28 04:48 | disposition home or self-care (01) ==
PROVIDERS: Emergency Provider General Practice; PCP Family Medicine
DX: R10.13 Epigastric pain (principal); I10 Essential (primary) hypertension; I25.10 Atherosclerotic heart disease of native coronary artery without angina pectoris; D64.9 Anemia, unspecified; E78.5 Hyperlipidemia, unspecified; K21.9 Gastro-esophageal reflux disease without esophagitis; K58.9 Irritable bowel syndrome, unspecified; G47.33 Obstructive sleep apnea (adult) (pediatric); Z87.442 Personal history of urinary calculi; Z85.07 Personal history of malignant neoplasm of pancreas; Z95.5 Presence of coronary angioplasty implant and graft; Z96.652 Presence of left artificial knee joint; R94.31 Abnormal electrocardiogram [ECG] [EKG]; I49.3 Ventricular premature depolarization
CPT/HCPCS: 36415; 71045; 74177; 80048; 80076; 83690; 84484; 85025; 85610; 85730; 93005; 99283; Q9967

== ENCOUNTER 2021-07-28 11:22 | Observation (INO) | payer MEDICARE, SELFPAY ==
[2021-07-28] VITALS (8 sets, daily range): BP systolic 166–180; BP diastolic 71–111; PULSE 63–88; RESP 14–18; TEMP 36.4–37; O2SAT 93–100; BMI 30.4
--- NOTE | ~2021-07-28 | XR_ITS ---
EXAMINATION: XR chest 2V DATE: 07/28/2021 11:50 INDICATION: Chest pain and shortness of breath. TECHNIQUE: Frontal and lateral views of the chest were obtained. COMPARISON: Chest single view at 12:26 AM, CT abdomen and pelvis 07/28/2021 FINDINGS: There is mild scarring at the lung apices. No pleural effusion or pneumothorax. The heart s ize is normal. There is a surgical clip from cholecystectomy. There is an old healed fracture of left clavicle. IMPRESSION: 1. Mild scarring at the lung apices. Reviewed, dictated and finalized at location A.
--- NOTE | ~2021-07-28 | CT_ITS ---
EXAMINATION: CT brain wo con DATE: 07/28/2021 14:28 INDICATION: Altered mental status. Dizziness. TECHNIQUE: Computed tomography (CT) of the head was performed without intravenous contrast. The mA wa s adjusted according to patient size. Iterative reconstruction technique was employed. The dose-lengt h product was 605.33 mGy-cm. COMPARISON: None FINDINGS: There are scattered areas of low attenuation in the cerebral white matter. There is an old infarct in posterior left frontal lobe. There is no intracranial hemorrhage, acute infarction, or abn ormal intracranial mass lesion. The ventricles are normal in size. There is mucosal thickening in the paranasal sinuses. The orbits are normal. The mastoid air cells are normal. IMPRESSION: 1. 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 2. Mild nonspecific cerebral white matter disease, which likely represents chronic small vessel ische ruben disease. 3. I discussed this case with Dr. Crespo. Reviewed, dictated and finalized at location A. IMPRESSION: 1. 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 2. 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 3. I discussed this case with Dr. Crespo.
--- NOTE | ~2021-07-28 | XR_ITS ---
EXAMINATION: XR knee LT min 4V DATE: 07/28/2021 14:40 INDICATION: Left knee pain. TECHNIQUE: 4 views of left knee were obtained. COMPARISON: Left knee radiographs 05/11/2021 FINDINGS: There is a total left knee arthroplasty without patellar resurfacing in near-anatomic align ment. No fracture. No periprosthetic lucency to suggest loosening or infection. There is a small oste ophyte of patella. There is a small knee joint effusion. IMPRESSION: 1. Total left knee arthroplasty in near-anatomic alignment. 2. Small left knee joint effusion. Reviewed, dictated and finalized at location A.
--- NOTE | ~2021-07-28 | MR_ITS ---
EXAMINATION: MR brain/brain stem wo con EXAM DATE: 07/29/2021 13:29 INDICATION: Balance issues, old CVA on CT . TECHNIQUE: Magnetic resonance imaging (MRI) of the brain/brain stem obtained without contrast. Sagitt al T1, axial diffusion, gradient echo (T2*), T1, T2, FLAIR sequences obtained. Correlation is made t o head CT from yesterday. FINDINGS: There are no areas of restricted diffusion to suggest acute infarction. There is no acute hemorrhage seen on the T2*, a hemosiderin sensitive sequence. No intraparenchymal brain mass lesion. Small old left frontal lobe infarction. Hyperostosis frontalis. There is mild periventricular and subcortical T2/FLAIR signal hyperintensity, nonspecific but probably related to small vessel ischemic disease (microangiopathy). There are no extra-axial collections. Flow voids are seen in the cereb ral arteries on the T2-weighted sequences consistent with their expected patency. The orbits are unr emarkable. Soft tissue is unremarkable. IMPRESSION: 1. No acute intracranial findings. 2. Chronic age related findings. 3. Old small left frontal lobe infarction. Reviewed, dictated and finalized at location A.
--- NOTE | ~2021-07-28 | US_ITS ---
EXAMINATION: US carotid duplex BI EXAM DATE: 07/29/2021 12:38 INDICATION: Faint right bruit, vertigo . . TECHNIQUE: Grayscale, color and pulsed Doppler images of the cervical carotid arteries were obtained . The degree of vessel stenosis is placed in one of the following categories: normal, <50% stenosis, 50-69% stenosis, >=70% stenosis but less than near-occlusion, near-occlusion, or occlusion. Note that percent stenosis relative to normal distal artery lumen diameter is indirectly measured from velocit y measurements as described by John, et al. Radiology 2003; 229:340-346. There is no prior study fo r comparison. FINDINGS: RIGHT SIDE: Right common carotid artery peak systolic velocity (PSV in cm/s): 60 Right bulb/internal carotid artery peak systolic velocity (PSV in cm/s): 61 Right internal carotid artery end diastolic velocity (EDV in cm/s): 19 Right ICA/CCA peak systolic ratio: 1.0 Right external carotid artery peak systolic velocity (PSV in cm/s): 64 Right vertebral artery antegrade flow: yes There is mild carotid bulb plaque. Velocity and Doppler waveforms in the common and internal carotid arteries is normal. LEFT SIDE: Left common carotid artery peak systolic velocity (PSV in cm/s): 66 Left bulb/internal carotid artery peak systolic velocity (PSV in cm/s): 98 Left internal carotid artery end diastolic velocity (EDV in cm/s): 15 Left ICA/CCA peak systolic ratio: 1.5 Left external carotid artery peak systolic velocity (PSV in cm/s): 65 Left vertebral artery antegrade flow: yes There is mild carotid bulb plaque. Velocity and Doppler waveforms in the common and internal carotid arteries is normal. IMPRESSION: 1. Less than 50 percent stenosis in the right internal carotid artery. 2. Less than 50 percent stenosis in the left internal carotid artery. > Reviewed, dictated and finalized at location A.
--- NOTE | 2021-07-28 11:23 | ECG_ITS ---
Measurements Intervals [place] Rate: 94 P: 72 [place]: 167 QRS: -46 QRSD: 129 T: 106 QT: 389 QTc: 489 Interpretive Statements SINUS RHYTHM VENTRICULAR TRIGEMINY AND ATRIAL PREMATURE COMPLEXES LEFT AXIS DEVIATION LEFT BUNDLE BRANCH BLOCK INFERIOR INFARCT OR DUE TO LBBB ABNORMAL ECG Electronically Signed On 07-28-2021 13:07:33 CDT by Stuart Austin D.O.
[2021-07-28 12:20] LABS: Hematocrit 43.7 % (37.0-47.0); Hemoglobin 13.5 g/dL (12.0-15.0); Mean Corpuscular HGB Conc 30.9 g/dl (32-36); Mean Corpuscular Hemoglobin 27.7 pg (26-34); Mean Corpuscular Volume 89.5 fl (80-100); Platelet Count Result 189 k/mm3 (150-375); Red Blood Count 4.88 M/mm3 (4.2-5.4); Red Cell Distribution Width 14.5 % (11.5-14.5); White Blood Count 16.4 K/mm3 (4.5-10.0)
[2021-07-28 12:31] LABS: INR 0.9; Prothrombin Time 11.6 Seconds (11.1-14.7)
[2021-07-28 12:32] LABS: Partial Thromboplastin Time 25.2 SECONDS (22.3-36.8)
[2021-07-28 12:35] LABS: Anion Gap 14 mmol/L (8-16); Blood Urea Nitrogen 15 mg/dL (7-17); Calcium 9.8 mg/dL (8.4-10.2); Carbon Dioxide 18 mmol/L (22-30); Chloride 106 mmol/L (98-107); Estimated CRCL calculation 64 ml/min; Estimated Glomerular Filt Rate > 60; Glucose 115 mg/dL (65-110); Sodium 138 mmol/L (137-145)
[2021-07-28 12:47] LABS: Troponin I < 0.012 ng/mL (0.000-0.034)
[2021-07-28 13:10] LABS: Atypical Lymphocytes Present; Band Neutrophils Percent 1 % (0-6); Basophils Absolute Manual 0.16 K/mm3 (0.0-0.1); Basophils Percent Manual 1 % (0-1); Lymphocytes Absolute Manual 3.11 K/mm3 (1.1-4.5); Monocytes Percent Manual 11 % (3-9); Neutrophils Absolute Manual 11.31 K/mm3 (1.7-7.2); Neutrophils Percent Manual 68 % (46-73); Total Cells Counted 100
[2021-07-28] MEDS: ASPIRIN 81 MG CHEWABLE TABLET 324 MG PO (13:56)
[2021-07-28 14:56] LABS: Lactic Acid Reflex 1.1 mmol/L (0.7-2.1)
[2021-07-28 15:09] LABS: Erythrocyte Sedimentation Rate 18 mm/hr (0-20)
[2021-07-28 15:13] LABS: CRP 3.3 mg/dL (<1.0)
--- NOTE | 2021-07-28 15:30 | PM.IMHP ---
H&P: HPI History of Present Illness Date/Time: 07/28/21 15:30 Chief Complaint: Wobbly when walking. Narrative: This is a very pleasant 75-year-old female with history of coronary artery disease status post stent in 2008, paroxysmal SVT status post ablation in 2012, hypertension, dyslipidemia, untreated sleep apnea, GERD, and anxiety presented to the emergency department earlier this morning via private vehicle from home with reports of wobbling when walking. It should be noted that the chief complaint which I elicited from the patient is different than that documented by the triage nurse and her chief complaint to the emergency department physician was unclear. I am familiar with the patient as I did a consultation on her in March 2021 after her left total knee arthroplasty. She participated in rehab thereafter and was discharged home at the beginning of April. Since that time she has continued to have mild swelling and warmth in the left knee and reports that it is typically quite stiff, much more so in the mornings. Her biggest concern, however, is that she feels unsteady and a bit wobbly when she steps forward with her left leg. She likens it to stepping into deep sand and she has feelings and significant fears that she is going to fall. She does admit to falling a couple of months ago as well as 3 weeks ago when walking up the steps, but likely she did not injure herself. She also endorses intermittent vertigo for couple of months and on exam she reported brief diplopia when doing [id number]. She denies focal weakness, paresthesias, facial droop, dysarthria, and dysphagia. She has not had a fever but reports chills the last couple of days. 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 It should be noted that the patient was seen in the emergency department last evening with complaints of epigastric pain that she described as squeezing and nonradiating in nature. Her labs, EKG, and imaging were unremarkable and the patient did admit to having similar episodes in the past and she was told that her symptoms were likely due to anxiety. She presented back to the emergency department this morning as she remembers being told that she needed to come back today for further testing that was unable to be performed last night however there is no documentation to substantiate this. With further questioning she tells me that she was seen emergency department last night for the same complaint as detailed above, feeling wobbly when she walks. She goes on to say that she does get quite anxious when walking as she is afraid that she might fall, at times she will have some abdominal or chest discomfort related to the anxiety. She is alert and oriented x4 at the time my evaluation and she is quite sharp however she does seem confused regarding why she was here last night and why she came to the ER this morning and I am uncertain as to whether not she has underlying memory problems. She does specifically deny chest pain, pleuritic pain, palpitations, and shortness of breath at the time my evaluation. Review of Systems Review of Systems: Twelve systems were reviewed with pertinent positives and negatives as per HPI. No sinus congestion, rhinorrhea, otalgia, or odynophagia. She reports a mild headache. No neck ache. No rash or lesion. Reports mild dysuria. No nausea, vomiting, or diarrhea. She does have issues with constipation and recently used a laxative with good results. Except as documented, all other systems were reviewed and are negative. [facility] Past Medical History Medical History (Updated 07/28/21 @ 22:59 by Almaz Kapoor PA-C) Anemia History of blood transfusion. Anxiety Arthritis Coronary artery disease Status post stent 2008. Negative stress test in 2012. No significant disease on [facility] in January 2018. Patient of Dr. Sharpe. Depression Dyslipidemia Finger fracture, left Gastric ulcer Gastroesophageal refl
[2021-07-28 15:34] LABS: Add Urine Microscopic? YES; Appearance Urine Cloudy (Clear); Bacteria Urine Trace /hpf; Bilirubin Urine Negative (Negative); Blood Urine Negative (Negative); Calcium Oxalate Crystals Urine Present /hpf; Color Urine Amber (Yellow); Glucose Urine UA Negative (Negative); Ketones Urine Negative (Negative); Leukocyte Esterase Ur Trace LEU/UL (Negative); Mucus Urine Few /lpf; Nitrate Urine Positive (Negative); Protein Urine 2+ mg/dL (Negative); Squamous Epithelial Cell Urine Few /hpf (Few)
--- NOTE | 2021-07-28 15:36 | ED.GENADULT ---
HPI - General Adult General Chief complaint: Chest Pain Stated complaint: chest pressure, sob Time Seen by Provider: 07/28/21 13:16 Source: patient Mode of arrival: ambulatory Limitations: altered mental status and clinical condition History of Present Illness HPI narrative: 75-year-old female It is unclear exactly why she is in the ED this afternoon Patient tells me that 2 days ago hurt her left knee almost gave out when she was trying to get up from a chair The knee was replaced 3 months ago She says that she and her son decided that if it happened again she should come to the hospital to have it checked out Last night she was seen in the ED here, however her chief complaint at that time appears to have been abdominal pain Her work-up was unremarkable It looks like she told triage that she was now here because of chest pain and shortness of breath However she tells me that she is not really sure why she is here, that nothing has changed, and that someone called her from the hospital and told her that she needed to return due to the results of some of the testing that was done However I cannot locate anyone here who had called her, there are no notes in the EMR suggesting that anyone had called her and told her to return, and I do not see any results that might have been changed or over read which would prompt a call back Subsequently when talking her she said that she was told she needed a test that was not performed at night but I cannot find any evidence of a discussion like that either She currently says she does not have chest pain no nausea vomiting no urinary symptoms no focal weakness Her left knee is a little sore Related Data Home Medications Medication Instructions Recorded Confirmed levocetirizine 10 mg PO DAILY 08/28/19 05/11/21 oxybutynin chloride 5 mg PO TID 08/28/19 05/11/21 hydrochlorothiazide 25 mg PO QAM 09/28/20 05/11/21 carvedilol 3.125 mg tablet 3.125 mg PO BID tablet 01/26/21 05/11/21 magnesium 200 mg tablet 200 mg PO DAILY 01/26/21 05/11/21 diclofenac sodium 75 mg PO BID PRN 02/22/21 05/11/21 escitalopram oxalate 10 mg PO DAILY 02/22/21 05/11/21 ncdheyva-pia-[id number]-FA 1 mg 1 tablet PO QAM 03/30/21 05/11/21 tablet Allergies Allergy/AdvReac Type Severity Reaction Status Date / Time codeine Allergy Unknown Vomiting, Verified 05/11/21 15:41 itching, swelling Review of Systems Review of Systems: All systems reviewed & are unremarkable except as noted in HPI and below Constitutional: Constitutional: Reports no additional constitutional complaints, Denies chills, Denies fever(s), Denies headache(s) and Reports weakness Eyes: Eyes: Reports no additional eye complaints and Denies change in vision ENT: Denies headache(s) and Denies sore throat Cardiovascular: Cardiovascular: Denies chest pain and Denies dyspnea Respiratory: Respiratory: Denies cough and Denies dyspnea Gastrointestinal: Gastrointestinal: Reports abdominal pain, Denies diarrhea and Denies vomiting Genitourinary: Genitourinary: Denies urinary frequency and Denies dysuria Musculoskeletal: Musculoskeletal: Denies deformity, Reports arthralgias, Denies joint swelling and Denies numbness Integumentary/Breasts: Skin/Breast: Denies rash and Denies wounds Neurologic: Reports confusion, Denies headache(s), Denies focal weakness and Denies numbness Psychiatric: Psychiatric: Reports no additional psychiatric complaints Endocrine: Endocrine: Reports no additional endocrine complaints Hematologic/Lymphatic: Hematologic/Lymphatic: Reports no additional hematologic/lymphatic complaints Allergic/Immunologic: Allergic/Immunologic: Reports no additional allergic/immunologic complaints [facility] Past Medical History Medical History Anemia History of blood transfusion. Anxiety Anxiety Arthritis Coronary artery disease Status post stent 2008. Negative stress test
[2021-07-28 15:47] LABS: Specific Grav Ur 1.046 (1.001-1.035)
[2021-07-28] MEDS: LACTATED RINGERS 1,000 ML 125 ML IV CONT (16:10)
[2021-07-28 16:28] LABS: Troponin I < 0.012 ng/mL (0.000-0.034)
[2021-07-28 18:25] LABS: Troponin I < 0.012 ng/mL (0.000-0.034)
--- NOTE | 2021-07-28 18:28 | ADMGEN ---
This patient, Olinda García, was admitted to Medical Room 342-01. Patient/family oriented to hospital policies and general routines including ID bracelet, bed and alarms, visiting hours, pain management, procedures, bathroom and other care routines, personal items, smoking policy, room service/diet, and visiting hours. Information on how to activate the Rapid Response Team has been discussed. Patient/Family are encouraged to report perceived risks to care and to ask questions if they do not understand what they are told or what they should do.
[2021-07-28] MEDS: carvediloL 3.125 MG TABLET PO (23:40)
[2021-07-28] MEDS: ACETAMINOPHEN 325 MG TABLET 650 MG PO (23:40)
[2021-07-29] VITALS (15 sets, daily range): BP systolic 107–158; BP diastolic 68–89; PULSE 50–82; RESP 16–20; TEMP 36.2–36.6; O2SAT 91–96
[2021-07-29 06:08] LABS: Hematocrit 37.1 % (37.0-47.0); Hemoglobin 11.7 g/dL (12.0-15.0); Mean Corpuscular HGB Conc 31.5 g/dl (32-36); Mean Corpuscular Hemoglobin 27.8 pg (26-34); Mean Corpuscular Volume 88.1 fl (80-100); Platelet Count Result 167 k/mm3 (150-375); Red Blood Count 4.21 M/mm3 (4.2-5.4); Red Cell Distribution Width 14.6 % (11.5-14.5); White Blood Count 8.5 K/mm3 (4.5-10.0)
[2021-07-29 06:29] LABS: Alanine Aminotransferase 44 U/L (4-35); Albumin Level 3.9 g/dL (3.5-5.1); Alkaline Phosphatase 106 U/L (38-126); Anion Gap 7 mmol/L (8-16); Aspartate Amino Transferase 42 U/L (14-36); Bilirubin,Total 1.3 mg/dL (0.2-1.3); Blood Urea Nitrogen 13 mg/dL (7-17); CRP 7.5 mg/dL (<1.0); Calcium 9.4 mg/dL (8.4-10.2); Carbon Dioxide 25 mmol/L (22-30); Chloride 108 mmol/L (98-107); Estimated CRCL calculation 75 ml/min; Estimated Glomerular Filt Rate > 60; Glucose 111 mg/dL (65-110); Magnesium 2.1 mg/dL (1.6-2.3); Potassium 3.7 mmol/L (3.4-5.0); Sodium 140 mmol/L (137-145)
[2021-07-29] MEDS: ACETAMINOPHEN 325 MG TABLET 650 MG PO (07:52)
[2021-07-29] MEDS: PANTOPRAZOLE 40 MG TABLET PO (08:30)
[2021-07-29] MEDS: hydroCHLOROthiazide 25 MG TABLET PO (08:31)
[2021-07-29] MEDS: ESCITALOPRAM OXALATE 10 MG TABLET PO (08:31)
[2021-07-29] MEDS: carvediloL 3.125 MG TABLET PO ×2 (08:31→20:11)
[2021-07-29] MEDS: lisinopriL 20 MG TABLET PO (08:31)
[2021-07-29] MEDS: OXYBUTYNIN CHLORIDE 5 MG TABLET PO ×3 (08:31→17:49)
[2021-07-29] MEDS: LORATADINE 10 MG TABLET PO (08:44)
--- NOTE | 2021-07-29 15:26 | PM.CNOR ---
Assessment and Plan Assessment and plan (1) S/P total knee arthroplasty: Qualifiers: Laterality: left Qualified Code(s): Z96.652 - Presence of left artificial knee joint Code(s): Z96.659 - Presence of unspecified artificial knee joint Status: Acute Assessment and Plan: 3.5 months status post left total knee arthroplasty. Mild warmth on exam otherwise benign. No other evidence of infection. Elevated white count now improved. Continue with PT/ OT with weight-bearing as tolerated. Rehab for quad and leg strengthening. We will continue to follow. (2) UTI (urinary tract infection): Qualifiers: Urinary tract infection type: acute cystitis Hematuria presence: without hematuria Qualified Code(s): N30.00 - Acute cystitis without hematuria Code(s): N39.0 - Urinary tract infection, site not specified Status: Acute Assessment and Plan: Currently on Rocephin. History of Present Illness HPI Consult date: 07/29/21 Requesting physician: Reyes Crespo MD Chief complaint: Delirium Narrative: 75-year-old woman 3 months status post left total knee arthroplasty. Admitted for mental status changes, confusion and weakness. Denies any pain at the left knee or leg. Denies numbness or tingling. Review of Systems Review of Systems: All systems reviewed & are unremarkable except as noted in HPI and below Constitutional: Constitutional: Denies fever(s) and Denies headache(s) ENT: Denies headache(s) Cardiovascular: Cardiovascular: Denies chest pain, Denies diaphoresis, Denies palpitations and Denies dyspnea Respiratory: Respiratory: Denies dyspnea Gastrointestinal: Gastrointestinal: Denies abdominal pain, Denies constipation, Denies nausea and Denies vomiting Genitourinary: Genitourinary: Reports nocturia and Denies dysuria Musculoskeletal: Musculoskeletal: Reports arthralgias (Left Knee ) and Reports joint swelling (Left Knee ) Neurologic: Denies headache(s) Endocrine: Endocrine: Denies palpitations PMFSH Past Medical History Medical History Anemia History of blood transfusion. Anxiety Arthritis Coronary artery disease Status post stent 2008. Negative stress test in 2012. No significant disease on [facility] in January 2018. Patient of Dr. Sharpe. Depression Dyslipidemia Finger fracture, left Gastric ulcer Gastroesophageal reflux disease History of blood transfusion Hypertension Irritable bowel syndrome Kidney stones Left bundle branch block Migraines Obstructive sleep apnea Osteoarthritis Osteoporosis Pancreatic cancer Status post Whipple. Paroxysmal supraventricular tachycardia Status post ablation in 2012. 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 Left heart catheterization was unremarkable. Diagnosed with stress-induced cardiomyopathy, EF 40-45%. Normal systolic function with an EF of 60 to 65% on echo in August 2020. Surgical History Surgical History History of arthroplasty of left knee (04/11/21) History of arthroscopy of both knees History of bilateral breast reduction surgery History of cardiac catheterization (2017) History of cardiac radiofrequency ablation For paroxysmal supraventricular tachycardia. History of cholecystectomy History of coronary artery stent placement (2008) History of hysterectomy Due to dysfunctional uterine bleeding. History of orthopedic surgery Right thumb pinning in April 2012. Bilateral foot surgery. History of tonsillectomy History of tubal ligation History of Whipple procedure Family History Family History Mother Colon cancer Heart disease Hyperlipidemia Grandparent Hypertension Father Unknown family medical hist
--- NOTE | 2021-07-29 19:20 | PM.IMPN ---
Progress Note: A&P Assessment and Plan (1) Gait disturbance: Code(s): R26.9 - Unspecified abnormalities of gait and mobility Status: Acute Assessment and Plan: Continue PT OT. Rehab at the time of discharge. (2) Abnormal urinalysis: Code(s): R82.90 - Unspecified abnormal findings in urine Status: Acute Assessment and Plan: Continue Rocephin. Patient is hemodynamically stable. WBCs improving from 16.4-8.5 today. (3) Leukocytosis: Code(s): D72.829 - Elevated white blood cell count, unspecified Status: Acute Assessment and Plan: Resolved (4) Confusion: Code(s): R41.0 - Disorientation, unspecified Status: Acute Assessment and Plan: Resolved. CT of the brain and MRI of the brain nonrevealing. (5) Hypertension: Code(s): I10 - Essential (primary) hypertension Status: Acute Assessment and Plan: Stable. Resume home medication. (6) Coronary artery disease: Code(s): I25.10 - Atherosclerotic heart disease of [place] coronary artery without angina pectoris Status: Acute Assessment and Plan: Currently asymptomatic. Continue cardioprotective medications. Subjective Date/time seen: Narrative. This is a very pleasant 75-year-old female with history of coronary artery disease status post stent in 2008, paroxysmal SVT status post ablation in 2012, hypertension, dyslipidemia, untreated sleep apnea, GERD, and anxiety presented to the emergency department earlier this morning via private vehicle from home with reports of wobbling when walking. Last March 2021 after her left total knee arthroplasty, she participated in rehab thereafter and was discharged home at the beginning of April. Since that time she has continued to have mild swelling and warmth in the left knee and reports that it is typically quite stiff, much more so in the mornings. Patient was evaluated by Ortho. She is 3.5 months status post left total knee arthroplasty. On a clinical examination mild warmth. No evidence of infection. Recommendation to continue PT/OT with weight-bearing as tolerated. Rehabilitation is suggested for quadriceps and leg strengthening. Currently patient is on ceftriaxone for acute cystitis. 07/29/21 15:00 S: Patient was examined at the bedside. No active complaints. She is feeling a lot better. Review of Systems Review of Systems: All systems reviewed & are unremarkable except as noted in HPI and below Exam Narrative: General: Well-developed elderly female sitting up in bed no distress. Weight: 85.5 kg. BMI: 30.4. HEENT: Normocephalic, atraumatic. She is wearing glasses. PERRL, EOMI. Sclerae anicteric. Oral mucosa moist. Oropharynx clear. Neck: Supple. Faint right-sided bruit. No adenopathy or JVD. Respiratory: Lungs are clear to auscultation bilaterally. Cardiovascular: Regular rate and rhythm with S1-S2. Soft murmur at the left upper sternal border. Gastrointestinal: Abdomen is soft, nontender, and nondistended with positive bowel sounds. Skin: Warm and dry. No rash or lesions on limited exam. Extremities: No cyanosis, clubbing, or significant edema. Radial and pedal pulses intact. Musculoskeletal: Left knee is swollen when compared to the right. Well-healed incision without evidence of infection. The he is warm to touch but not more so when compared to the right. She does have difficulties bending the knee due to stiffness. No pain with passive range of motion. Neurological: Alert and oriented x4. Cranial nerves 2-12 are grossly intact. Speech is clear. No facial asymmetry. the patient's neurological exam is grossly nonfocal. Psychiatric: Pleasant and cooperative. Appropriate mood. Seems forgetful as detailed in HPI. Objective Data Vital Signs Vital Signs: Vital Signs - 24 hr 07/28/21 20:00 07/28/21 21:17 07/28/21 21:43 Temperature 98.6 F Pulse Rate 86 78 88 Respiratory Rate 16 18 Blood Press
--- NOTE | 2021-07-29 23:05 | ECHO_ITS ---
Patient Info Name: Olinda Reza [facility] Age: 75 years : 1945 Gender: Female Ht: 66 in Wt: 183 lbs BSA: 1.99 m2 HR: 65 bpm BP: 150 / 77 mmHg Heart Rhythm: Sinus Rhythm Technical Quality: Good Exam Date: 07/29/2021 7:02 AM Exam Location: [facility] Card Pulmonary Patient Status: Inpatient Admit Date: 07/28/2021 Staff Ordering Physician: Almaz Kapoor PA-C Acid Patroller: Vee Ortiz RDCS Attending Provider: Alvin Singer MD Referring Physician: Antwon MCCRACKEN; Exam Type: CA echo doppler color flow Study Info Complete two-dimensional, color flow and Doppler transthoracic echocardiogram is performed. Summary 1. Complete two-dimensional, color flow and Doppler transthoracic echocardiogram is performed. 2. Normal left ventricular with mild concentric hypertrophy and septal hypertrophy. Good overall systolic function with possible inferior basal hypokinesis.. Calculated ejection fraction was 58% but visually appears to be 60-65%. Grade 2 diastolic dysfunction is noted. 3. Left atrial chamber dimension is severely enlarged. 4. There is mild aortic valve regurgitation. Trileaflet aortic valve. 5. There is mild mitral valve regurgitation. 6. NSR with occasional PVCs. Left Ventricle Left ventricular chamber dimension is normal. Left ventricular systolic function is normal, estimated at 60-65%. There is mildly increased left ventricular wall thickness. Left ventricular septal wall motion is normal. The left ventricular diastolic function is grade II diastolic dysfunction. Right Ventricle Right ventricular chamber dimension is normal. Right ventricular systolic function is normal. Left Atria Left atrial chamber dimension is severely enlarged. Right Atria Right atrial chamber dimension is normal. Aortic Valve The aortic valve is trileaflet. There is no aortic valve sclerosis. There is no aortic valve stenosis. There is mild aortic valve regurgitation. Trileaflet aortic valve. Pulmonic Valve The pulmonic valve is normal. There is no pulmonic valve stenosis. There is no pulmonic regurgitation. Mitral Valve The mitral valve has normal leaflets. There is no mitral valve stenosis. There is mild mitral valve regurgitation. Tricuspid Valve The tricuspid valve leaflets are normal. There is no significant tricuspid valve stenosis. There is trace tricuspid valve regurgitation. No pulmonary hypertension, estimated pulmonary arterial systolic pressure is Empty. Pericardium/Pleural The pericardium appears normal. There is no pericardial effusion. Inferior Vena Cava Normal inferior vena cava with >50% collapse upon inspiration consistent with Empty right atrial pressure, Empty. Aorta The aortic root size at the sinus of Valsalva is normal. The prox ascending aorta size is normal. Left Ventricular Outflow Tract Name Value Normal LVOT 2D LVOT Diameter 2.1 cm LVOT Doppler LVOT Peak Gradient 3 mmHg LVOT Mean Gradient 2 mmHg LVOT VTI 22 cm LVOT VTI/AV VTI Ratio 0.6
[2021-07-30] VITALS (7 sets, daily range): BP systolic 147–163; BP diastolic 84–90; PULSE 52–74; RESP 16; TEMP 36.1–36.9; O2SAT 94–95
[2021-07-30] MEDS: ACETAMINOPHEN 325 MG TABLET 650 MG PO (06:56)
[2021-07-30] MEDS: PANTOPRAZOLE 40 MG TABLET PO (08:24)
[2021-07-30] MEDS: lisinopriL 20 MG TABLET PO (08:24)
[2021-07-30] MEDS: hydroCHLOROthiazide 25 MG TABLET PO (08:24)
[2021-07-30] MEDS: ESCITALOPRAM OXALATE 10 MG TABLET PO (08:24)
[2021-07-30] MEDS: carvediloL 3.125 MG TABLET PO (08:24)
[2021-07-30] MEDS: OXYBUTYNIN CHLORIDE 5 MG TABLET PO (08:24)
[2021-07-30] MEDS: LORATADINE 10 MG TABLET PO (08:24)
--- NOTE | 2021-07-30 11:04 | PM.PNORT ---
Progress Note: A&P Assessment and Plan (1) S/P total knee arthroplasty: Qualifiers: Laterality: left Qualified Code(s): Z96.652 - Presence of left artificial knee joint Code(s): Z96.659 - Presence of unspecified artificial knee joint Status: Acute Assessment and Plan: Patient clinically better. Left knee exam benign. Continue PT/OT. Follow-up Dr. Yu after discharge. Subjective Subjective Date/Time Seen: 07/30/21 11:04 Principal diagnosis: Urinary tract infection Interval history: patient awake and alert. States feels much better today. Denies left knee pain. Exam Const: General: comfortable and no acute distress Resp: Effort & Inspection: normal respiratory effort Cardio: Rate: regular rate Rhythm: regular rhythm GI: GI Palp: Yes Soft to palpation, No Tenderness to palpation present (GI) and No Guarding due to palpation present (GI) Skin: Wounds: wounds noted Other: Incision Well-healed. No surrounding redness/warmth. No hematoma. No ecchymosis. No wound dehiscence Neuro: Cognition (Neuro): normal cognition Other: NV intact. Moves toes. Sensation intact to light touch. +ankle dorsiflexion/plantarflexion. Extrem: Right upper extremity: normal to inspection, full ROM and normal capillary refill Left upper extremity: normal to inspection, full ROM and normal capillary refill Right lower extremity: normal to inspection, full ROM and knee Details: normal to inspection and normal ROM; no tenderness and no swelling Left lower extremity: normal to inspection, full ROM, knee Details: normal ROM ( full active extension, flexion to 130?.), knee ligament exam normal Details: anterior drawer test normal, posterior drawer test normal, valgus stress test normal, varus stress test normal and Paul's test normal; pain with axial loading, Magnolia's Test Details: negative medially and laterally and other ( Mild warmth anterior knee. No effusion. No pain with motion.); no tenderness and no swelling, lower leg ( Calf pain), ankle ( positive ankle dorsiflexion /plantar flexion) and foot ( 2+ pedal pulses, sensation intact to light touch) Other: Incision left TKA dressing c/d/i. No hematoma. No signs of infection. No wound dehiscence. Psych: Mental Status: mental status grossly normal Objective Data Vital Signs Vital Signs: Vital Signs - 24 hr 07/29/21 12:00 07/29/21 14:00 07/29/21 14:58 Temperature 97.2 F L Pulse Rate 50 L 61 56 L Respiratory Rate 20 20 Blood Pressure 140/68 137/78 Pulse Oximetry 91 94 07/29/21 16:00 07/29/21 20:00 07/29/21 20:11 Temperature Pulse Rate 55 L 66 77 Respiratory Rate Blood Pressure Pulse Oximetry 07/29/21 20:47 07/29/21 22:00 07/29/21 22:50 Temperature 97.8 F Pulse Rate 50 L 82 Respiratory Rate 16 18 Blood Pressure 154/84 H Pulse Oximetry 94 94 95 07/30/21 00:00 07/30/21 04:00 07/30/21 06:00 Temperature 98.4 F Pulse Rate 70 52 L 63 Respiratory Rate 16 Blood Pressure 163/90 H Pulse Oximetry 94 07/30/21 06:05 07/30/21 06:10 07/30/21 08:24 Temperature 97.0 F L 97.3 F L Pulse Rate 57 L 69 74 Respiratory Rate 16 16 Blood Pressure 150/84 H 147/90 H Pulse Oximetry 94 95 Intake/Output Intake/Output: Intake & Output 07/27/21 07/28/21 07/29/21 07/30/21 23:59 23:59 23:59 23:59 Intake Total 50 490 760 Output Total 455 201 8813 Balance -100 -260 -290 Meds/Results Medications: Active Medications Generic Name Dose Route Start Last Admin Trade Name Freq PRN Reason Stop Dose Admin Acetaminophen 650 mg 07/28/21 22:37 07/30/21 06:56 Acetaminophen 325 Mg Tablet PO 650 mg Q6H PRN Administration Mild Pain (1-3) or Fever Carvedilol 3.125 mg 07/28/21 23:10 07/30/21 08:24 Carvedilol 3.125 Mg Tablet PO 3.125 mg Q12HR ISAÍAS Administration Diclofenac Sodium 75 mg 07/28/21 23:07 Diclofenac Sod 75 Mg Tablet.Ec PO BID PRN joint pain Escitalopram
--- NOTE | 2021-07-30 11:48 | PM.IMPN ---
Progress Note: A&P Assessment and Plan (1) Gait disturbance: Code(s): R26.9 - Unspecified abnormalities of gait and mobility Status: Acute Assessment and Plan: Continue PT OT. Rehab at the time of discharge. Follow-up Dr. Yu after discharge. (2) Abnormal urinalysis: Code(s): R82.90 - Unspecified abnormal findings in urine Status: Acute Assessment and Plan: Continue Rocephin. Patient is hemodynamically stable. WBCs improving from 16.4-8.5 today. (3) Leukocytosis: Code(s): D72.829 - Elevated white blood cell count, unspecified Status: Acute Assessment and Plan: Resolved (4) Confusion: Code(s): R41.0 - Disorientation, unspecified Status: Acute Assessment and Plan: Resolved. CT of the brain and MRI of the brain nonrevealing. (5) Hypertension: Code(s): I10 - Essential (primary) hypertension Status: Acute Assessment and Plan: Stable. Resume home medication. (6) Coronary artery disease: Code(s): I25.10 - Atherosclerotic heart disease of [place] coronary artery without angina pectoris Status: Acute Assessment and Plan: Currently asymptomatic. Continue cardioprotective medications. Subjective Date/time seen: 07/30/21 11:48 S: Patient is examined at the bedside. There is no complaints. She is feeling a lot better. Review of Systems Review of Systems: All systems reviewed & are unremarkable except as noted in HPI and below Exam Narrative: General: Well-developed elderly female sitting up in bed no distress. Weight: 85.5 kg. BMI: 30.4. HEENT: Normocephalic, atraumatic. She is wearing glasses. PERRL, EOMI. Sclerae anicteric. Oral mucosa moist. Oropharynx clear. Neck: Supple. Faint right-sided bruit. No adenopathy or JVD. Respiratory: Lungs are clear to auscultation bilaterally. Cardiovascular: Regular rate and rhythm with S1-S2. Soft murmur at the left upper sternal border. Gastrointestinal: Abdomen is soft, nontender, and nondistended with positive bowel sounds. Skin: Warm and dry. No rash or lesions on limited exam. Extremities: No cyanosis, clubbing, or significant edema. Radial and pedal pulses intact. Musculoskeletal: Left knee is swollen when compared to the right. Well-healed incision without evidence of infection. The he is warm to touch but not more so when compared to the right. She does have difficulties bending the knee due to stiffness. No pain with passive range of motion. Neurological: Alert and oriented x4. Cranial nerves 2-12 are grossly intact. Speech is clear. No facial asymmetry. the patient's neurological exam is grossly nonfocal. Psychiatric: Pleasant and cooperative. Appropriate mood. Seems forgetful as detailed in HPI. Objective Data Vital Signs Vital Signs: Vital Signs - 24 hr 07/29/21 12:00 07/29/21 14:00 07/29/21 14:58 Temperature 97.2 F L Pulse Rate 50 L 61 56 L Respiratory Rate 20 20 Blood Pressure 140/68 137/78 Pulse Oximetry 91 94 07/29/21 16:00 07/29/21 20:00 07/29/21 20:11 Temperature Pulse Rate 55 L 66 77 Respiratory Rate Blood Pressure Pulse Oximetry 07/29/21 20:47 07/29/21 22:00 07/29/21 22:50 Temperature 97.8 F Pulse Rate 50 L 82 Respiratory Rate 16 18 Blood Pressure 154/84 H Pulse Oximetry 94 94 95 07/30/21 00:00 07/30/21 04:00 07/30/21 06:00 Temperature 98.4 F Pulse Rate 70 52 L 63 Respiratory Rate 16 Blood Pressure 163/90 H Pulse Oximetry 94 07/30/21 06:05 07/30/21 06:10 07/30/21 08:24 Temperature 97.0 F L 97.3 F L Pulse Rate 57 L 69 74 Respiratory Rate 16 16 Blood Pressure 150/84 H 147/90 H Pulse Oximetry 94 95 Intake/Output Intake/Output: Intake & Output 07/27/21 07/28/21 07/29/21 07/30/21 23:59 23:59 23:59 23:59 Intake Total 50 490 760 Output Total 579 941 5981 Balance -100 260 -290 Meds/Results Medications: Active Medications Generic Nam
--- NOTE | 2021-07-30 11:48 | PM.DS ---
DS: Admitting Diagnosis Discharge Date 07/30/2021 Admitting Diagnosis Gait disturbance DS: Discharge Diagnosis Discharge Diagnosis (1) Gait disturbance: Code(s): R26.9 - Unspecified abnormalities of gait and mobility Status: Acute Assessment and Plan: Continue PT OT. Rehab at the time of discharge. Follow-up Dr. Yu after discharge. (2) Abnormal urinalysis: Code(s): R82.90 - Unspecified abnormal findings in urine Status: Acute Assessment and Plan: Continue Rocephin. Patient is hemodynamically stable. WBCs improving from 16.4-8.5 today. (3) Leukocytosis: Code(s): D72.829 - Elevated white blood cell count, unspecified Status: Acute Assessment and Plan: Resolved (4) Confusion: Code(s): R41.0 - Disorientation, unspecified Status: Acute Assessment and Plan: Resolved. CT of the brain and MRI of the brain nonrevealing. (5) Hypertension: Code(s): I10 - Essential (primary) hypertension Status: Acute Assessment and Plan: Stable. Resume home medication. (6) Coronary artery disease: Code(s): I25.10 - Atherosclerotic heart disease of [place] coronary artery without angina pectoris Status: Acute Assessment and Plan: Currently asymptomatic. Continue cardioprotective medications. DS: Summary Hospital Course Reason for hospitalization: Feeling wobbly on her feet. Hospital Course: This is a very pleasant 75-year-old female with history of coronary artery disease status post stent in 2008, paroxysmal SVT status post ablation in 2012, hypertension, dyslipidemia, untreated sleep apnea, GERD, and anxiety presented to the emergency department earlier this morning via private vehicle from home with reports of wobbling when walking. Last March 2021 after her left total knee arthroplasty, she participated in rehab thereafter and was discharged home at the beginning of April. Since that time she has continued to have mild swelling and warmth in the left knee and reports that it is typically quite stiff, much more so in the mornings. Patient was evaluated by Ortho. She is 3.5 months status post left total knee arthroplasty. On a clinical examination mild warmth. No evidence of infection. Recommendation to continue PT/OT with weight-bearing as tolerated. Rehabilitation is suggested for quadriceps and leg strengthening. Currently patient is on ceftriaxone for acute cystitis. She will be discharged on a 7-day course of augmentin. She does specifically deny chest pain, pleuritic pain, palpitations, and shortness of breath at the time my evaluation. Status at Discharge Functional status at discharge: independent ambulation Overall status at discharge: patient is progressing back to baseline Time Spent with Patient Time attestation: Total time spent providing and/or coordinating discharge services: Time spent: Greater than 30 minutes Exam Narrative: General: Well-developed elderly female sitting up in bed no distress. Weight: 85.5 kg. BMI: 30.4. HEENT: Normocephalic, atraumatic. She is wearing glasses. PERRL, EOMI. Sclerae anicteric. Oral mucosa moist. Oropharynx clear. Neck: Supple. Faint right-sided bruit. No adenopathy or JVD. Respiratory: Lungs are clear to auscultation bilaterally. Cardiovascular: Regular rate and rhythm with S1-S2. Soft murmur at the left upper sternal border. Gastrointestinal: Abdomen is soft, nontender, and nondistended with positive bowel sounds. Skin: Warm and dry. No rash or lesions on limited exam. Extremities: No cyanosis, clubbing, or significant edema. Radial and pedal pulses intact. Musculoskeletal: Left knee is swollen when compared to the right. Well-healed incision without evidence of infection. The he is warm to touch but not more so when compared to the right. She does have difficulties bending the knee due to stiffness. No pain with passive range of motion. Neurological:
== END 2021-07-30 13:07 | disposition home or self-care (01) ==
LOC: ANHED 16:01 → ANH3MED 07-29 01:36
PROVIDERS: Emergency Medicine; Physician Assistant; Admitting Provider Family Medicine; Emergency Provider Emergency Medicine; PCP Family Medicine; Visit Provider Internal Medicine
DX: R26.9 Unspecified abnormalities of gait and mobility (principal); N30.00 Acute cystitis without hematuria; E78.5 Hyperlipidemia, unspecified; F41.9 Anxiety disorder, unspecified; G47.33 Obstructive sleep apnea (adult) (pediatric); I10 Essential (primary) hypertension; I25.10 Atherosclerotic heart disease of native coronary artery without angina pectoris; K21.9 Gastro-esophageal reflux disease without esophagitis; Z96.652 Presence of left artificial knee joint; Z95.5 Presence of coronary angioplasty implant and graft; Z86.73 Personal history of transient ischemic attack (TIA), and cerebral infarction without residual deficits
CPT/HCPCS: 36415; 70450; 70551; 71046; 73564; 80048; 80053; 81001; 82607; 83605; 83735; 84443; 84484; 85025; 85027; 85610; 85652; 85730; 86140; 87040; 87077; 87086; 87186; 93005; 93306; 93880; 96365; 96376; 97161; 97165; 99285; A9270; G0378; J0696; J1170; J7120

== ENCOUNTER 2022-05-04 19:23 | Observation (INO) | payer MEDICARE, SELFPAY ==
--- NOTE | ~2022-05-04 | CT_ITS ---
EXAMINATION: CTA chest PE protocol DATE: 05/05/2022 12:35 INDICATION: Chest pain, elevated d-dimer TECHNIQUE: Computed tomography angiography (CTA) of the chest was performed with 100 mL Omnipaque-350 intravenous contrast timed to evaluate the pulmonary arteries. Coronal maximum intensity projection 3D-reconstructions were created by the technologist. Automated exposure control and iterative reconst ruction technique were employed. Exam dose: 453.95 mGy-cm total exam DLP. COMPARISON: 05/04/2022 portable upright AP chest 10/12/2018 CT pulmonary scan FINDINGS: There is diagnostic contrast enhancement of the pulmonary arteries and no evidence of pulmo nary embolism. Cardiomegaly. No pericardial or pleural effusion. No hilar or mediastinal mass lesion or lymphadenopathy. Patchy groundglass density throughout the lung gonzalez, suggesting small airways disease. No pulmonary consolidation. Normal morphology of the adrenal glands. Pneumobilia is noted, possibly secondary to cholecystectomy. Prominent degenerative disc disease of the lower cervical spine No suspicious osteolytic or osteoblastic lesions. IMPRESSION: No evidence of pulmonary embolism Reviewed, dictated and finalized at [facility]. Reviewed, dictated and finalized at [facility].
--- NOTE | ~2022-05-04 | XR_ITS ---
EXAMINATION: XR chest 1V portable DATE: 05/04/2022 19:55 INDICATION: Dyspnea TECHNIQUE: frontal view of the chest was obtained. COMPARISON: Chest radiograph dated 07/28/2021 FINDINGS: The lungs remain clear with no focal airspace opacities, pulmonary edema, pleural effusion or pneumot horax. The cardiomediastinal silhouette is normal. Visualized bones and soft tissues are unremarkable . IMPRESSION: 1. No acute cardiopulmonary disease. Reviewed, dictated and finalized at [facility].
[2022-05-04 19:26] VITALS: BP 132/68; PULSE 71; RESP 20; TEMP 36.6; O2SAT 94
--- NOTE | 2022-05-04 19:35 | ECG_ITS ---
Measurements Intervals [place] Rate: 66 P: 31 CT: 177 QRS: 1 QRSD: 113 T: 87 QT: 391 QTc: 413 Interpretive Statements SINUS RHYTHM POOR R-WAVE PROGRESSION NONSPECIFIC ST ABNORMALITY COMPARED TO ECG 07/28/2021 11:39:45 HEART RATE IS REDUCED AND RATE DEPENDENT LEFT BUNDLE BRANCH BLOCK IS NOT SEEN Electronically Signed On 05-05-2022 7:17:26 CDT by Edil Lyons M.D.
--- NOTE | 2022-05-04 19:47 | ED.GENADULT ---
HPI - General Adult General Chief complaint: Chest Pain Stated complaint: cp Time Seen by Provider: 05/04/22 19:23 History of Present Illness HPI narrative: this is a 76-year-old female with a history of coronary artery disease presenting to ED with a with chest pain. Patient says she was at home approximately 1 hour ago playing on her cell phone. Then she experiences pain that she describes as a punch to the chest. It lasted for approximately 5 minutes and then started to resolve w/ nitro. It was nonradiating. It was 10/10 in intensity when it started but is now resolved into some minor epigastric pain. Patient says she has experienced this before when she has had a heart attack. She was given nitro by EMS which she said helped improve her pain. There are no exacerbating factors. She says that she did get diaphoretic. Patient denies vomiting, exertional component or radiation to either arm or jaw. The patient is vaccinated against COVID-19 and denies fever, chills, nausea, vomiting or diarrhea. Related Data Home Medications Medication Instructions Recorded Confirmed levocetirizine 5 mg tablet 10 mg PO DAILY 08/28/19 04/12/22 oxybutynin chloride 5 mg tablet 5 mg PO TID 08/28/19 04/12/22 hydrochlorothiazide 25 mg tablet 25 mg PO QAM 09/28/20 04/12/22 carvedilol 3.125 mg tablet 3.125 mg PO BID 01/26/21 04/12/22 magnesium 200 mg tablet 200 mg PO DAILY 01/26/21 04/12/22 diclofenac sodium 75 mg 75 mg PO BID PRN joint pain 02/22/21 04/12/22 tablet,delayed release escitalopram oxalate 10 mg tablet 10 mg PO DAILY 02/22/21 04/12/22 hohkxowz-zso-Pr-FA 1 mg 1 tablet PO QAM 03/30/21 04/12/22 tablet carvedilol 05/04/22 oxybutynin chloride 5 mg TID 05/04/22 05/04/22 Allergies Allergy/AdvReac Type Severity Reaction Status Date / Time codeine Allergy Unknown Vomiting, Verified 04/12/22 09:05 itching, swelling Review of Systems Review of Systems: CONSTITUTIONAL: Denies night sweats. EYES: No eye pain ENT: Denies rhinorrhea CARDIOVASCULAR: Denies palpitations RESPIRATORY: Denies hemoptysis GASTROINTESTINAL: Denies hematemesis GENITOURINARY: Denies hematuria. SKIN: Denies rash MUSCULOSKELETAL: Denies myalgia. NEUROLOGIC: Denies weakness. PSYCHIATRIC: Denies delusions [facility] Past Medical History Medical History Anemia History of blood transfusion. Anxiety Arthritis Coronary artery disease Status post stent 2008. Negative stress test in 2012. No significant disease on C in January 2018. Patient of Dr. Sharpe. Depression Dyslipidemia Finger fracture, left Gastric ulcer Gastroesophageal reflux disease History of blood transfusion Hypertension Irritable bowel syndrome Kidney stones Left bundle branch block Migraines Obstructive sleep apnea Osteoarthritis Osteoporosis Pancreatic cancer Status post Whipple. Paroxysmal supraventricular tachycardia Status post ablation in 2012. 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 Left heart catheterization was unremarkable. Diagnosed with stress-induced cardiomyopathy, EF 40-45%. Normal systolic function with an EF of 60 to 65% on echo in August 2020. Surgical History Surgical History History of arthroplasty of left knee (04/11/21) History of arthroscopy of both knees History of bilateral breast reduction surgery History of cardiac catheterization (2017) History of cardiac radiofrequency ablation For paroxysmal supraventricular tachycardia. History of cholecystectomy History of coronary artery stent placement (2008) History of hysterectomy Due to dysfunctional uterine bleeding. History of orthopedic surgery Right thumb pinning in April 2012. Bilateral foot surgery. History of tonsillectomy History of t
[2022-05-04 20:25] LABS: Basophils Absolute Auto 0.1 K/mm3 (0.0-0.1); Basophils Percent Auto 0.7 % (0.2-1.2); Eosinophils Absolute Auto 0.2 K/mm3 (0-0.3); Eosinophils Percent Auto 3.2 % (0-4.4); Hematocrit 38.7 % (37.0-47.0); Hemoglobin 12.1 g/dL (12.0-15.0); Immature Granulocyte Absolute 0.02 K/mm3 (0.00-0.031); Immature Granulocyte Percent A 0.3 % (0-0.5); Immature Platelet Fraction Pct 7.2 % (0.9-11.2); Lymphocytes Absolute Auto 1.87 K/mm3 (0.9-3.2); Lymphocytes Percent Auto 27.3 % (18.3-44.2); Mean Corpuscular HGB Conc 31.3 g/dl (32-36); Mean Corpuscular Hemoglobin 27.7 pg (26-34); Mean Corpuscular Volume 88.6 fl (80-100); Mean Platelet Volume 11.3 fl (7.4-10.4); Monocytes Absolute Auto 0.4 K/mm3 (0.1-0.6); Monocytes Percent Auto 5.6 % (2.6-8.5); Neutrophils Absolute Auto 4.3 K/mm3 (1.3-6.7); Neutrophils Percent Auto 62.9 % (45.5-73.1); Platelet Count Result 178 k/mm3 (150-375); Red Blood Count 4.37 M/mm3 (4.2-5.4); White Blood Count 6.8 K/mm3 (4.5-10.0)
[2022-05-04 20:41] LABS: Alanine Aminotransferase 23 U/L (6-35); Albumin Level 4.2 g/dL (3.5-5.1); Alkaline Phosphatase 83 U/L (38-126); Anion Gap 10 mmol/L (8-16); Aspartate Amino Transferase 28 U/L (14-36); Bilirubin,Total 0.9 mg/dL (0.2-1.3); Blood Urea Nitrogen 19 mg/dL (7-17); Calcium 9.2 mg/dL (8.4-10.2); Carbon Dioxide 28 mmol/L (22-30); Chloride 104 mmol/L (98-107); Estimated Glomerular Filt Rate > 60; Glucose 157 mg/dL (65-110); Lipase 43 U/L (23-300); Potassium 3.4 mmol/L (3.4-5.0); Sodium 142 mmol/L (137-145)
[2022-05-04 20:48] LABS: NT Pro B Type Natriuretic Pept 87 pg/mL (5-100); Troponin I < 0.012 ng/mL (0.000-0.034)
[2022-05-04 20:56] LABS: Ovalocytes 1+ (NORMAL); Platelet Estimate Adequate (Adequate)
[2022-05-04 21:17] LABS: Prothrombin Time 12.3 Seconds (11.1-14.7)
[2022-05-04 21:30] LABS: D Dimer 0.53 ug/mL (<0.48)
[2022-05-04 22:22] LABS: SARS-CoV-2 RNA PCR Negative
[2022-05-04 23:12] VITALS: BP 125/76; PULSE 52; RESP 13; O2SAT 96
[2022-05-04 23:16] VITALS: BP 121/63; PULSE 70; RESP 14; O2SAT 93
[2022-05-04 23:28] VITALS: BP 141/59; PULSE 83; RESP 20; O2SAT 100
[2022-05-04 23:43] LABS: Troponin I < 0.012 ng/mL (0.000-0.034)
[2022-05-05] VITALS (12 sets, daily range): BP systolic 98–149; BP diastolic 54–81; PULSE 50–68; RESP 16–20; TEMP 35.9–36.4; O2SAT 96–98; BMI 29.5
[2022-05-05] MEDS: ASPIRIN 81 MG CHEWABLE TABLET 324 MG PO (01:19)
--- NOTE | 2022-05-05 03:19 | PC.NURSE ---
This patient, Olinda García, was admitted to IMU Room 209-01. Patient/family oriented to hospital policies and general routines including ID bracelet, bed and alarms, visiting hours, pain management, procedures, bathroom and other care routines, personal items, smoking policy, room service/diet, and visiting hours. Information on how to activate the Rapid Response Team has been discussed. Patient/Family are encouraged to report perceived risks to care and to ask questions if they do not understand what they are told or what they should do.
[2022-05-05 10:22] LABS: Troponin I < 0.012 ng/mL (0.000-0.034)
--- NOTE | 2022-05-05 10:50 | PM.IMHP ---
H&P: HPI History of Present Illness Date/Time: 05/05/2230 Chief Complaint: Chest Pain Narrative: This 76-year-old, pleasant, female patient with significant past medical history of coronary artery disease with stenting x2, chronic anemia, anxiety, depression, hyperlipidemia, GERD, peptic ulcer disease, hypertension, IBS, left bundle branch block, obstructive sleep apnea, osteoarthritis, pancreatic cancer status post Whipple 9 years ago, PSVT and stress induced cardiomyopathy presented to the emergency room last evening on 05/04/2022 with complaints of having chest pain. Patient endorses that she was on her phone and all of a sudden felt a abrupt punch to the chest. She describes the pain that she felt as immediate, short lived, sharp in the center of her chest without radiation, without nausea or vomiting, without sweating and she has not been left tender in the chest wall after. She does endorse that it felt like it felt when she had her previous OH. she decided to come to the emergency room for evaluation where workup was performed and chest x-ray was found to be negative she was dosed with aspirin and normal sinus rhythm 66 beats per minute without any ectopy shown on her EKG. Labs were performed and were significant for an elevated D-dimer of 0.53, and normal troponins. Upon my evaluation of the patient this morning she denies any acute chest pain, she denies any dyspnea she denies any acute symptoms at all. She is however tearful and appears anxious. CTA PE protocol is ordered of the chest and we are currently waiting on that to be performed, and Cardiology consult is placed secondary to patient's increased risk factors and heart score of 5 points placing her at a moderate risk of MACE. In addition review of patient's most previous cardiac testing history demonstrates an echocardiogram from August 2020 that indicates stress induced cardiomyopathy with an ejection fraction of 60-65% with normal systolic function. We will await cardiology's recommendations for this patient is and alter the plan of care as necessary. Review of Systems Review of Systems: All systems reviewed & are unremarkable except as noted in HPI and below [facility] Past Medical History Medical History (Updated 05/05/22 @ 11:04 by SIOBHAN RivasN-Miguel) Anemia History of blood transfusion. Anxiety Arthritis Coronary artery disease Status post stent 2008. Negative stress test in 2012. No significant disease on [facility] in January 2018. Patient of Dr. Sharpe. Coronary artery disease Depression Dyslipidemia Finger fracture, left Gastric ulcer Gastroesophageal reflux disease History of blood transfusion Hypertension Irritable bowel syndrome Kidney stones Left bundle branch block Migraines Obstructive sleep apnea Osteoarthritis Osteoporosis Pancreatic cancer Status post Whipple. Paroxysmal supraventricular tachycardia Status post ablation in 2012. 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 Left heart catheterization was unremarkable. Diagnosed with stress-induced cardiomyopathy, EF 40-45%. Normal systolic function with an EF of 60 to 65% on echo in August 2020. Surgical History Surgical History History of arthroplasty of left knee (04/11/21) History of arthroscopy of both knees History of bilateral breast reduction surgery History of cardiac catheterization (2017) History of cardiac radiofrequency ablation For paroxysmal supraventricular tachycardia. History of cholecystectomy History of coronary artery stent placement (2008) History of hysterectomy Due to dysfunctional uterine bleeding. History of orthopedic surgery Right thumb pinning in April 2012. Bilateral foot surgery. History of tonsillectomy History of tubal ligation History of Whipple proced
[2022-05-05] MEDS: KETOROLAC 30 MG/ML VIAL (*BKC) IV PUSH (12:48)
[2022-05-05] MEDS: MAGNESIUM OXIDE 200 MG TABLET PO (12:48)
[2022-05-05] MEDS: carvediloL 3.125 MG TABLET PO (12:49)
[2022-05-05] MEDS: ESCITALOPRAM OXALATE 10 MG TABLET PO (12:49)
[2022-05-05] MEDS: OXYBUTYNIN CHLORIDE 5 MG TABLET PO (12:49)
[2022-05-05] MEDS: lisinopriL 20 MG TABLET PO (12:49)
[2022-05-05] MEDS: hydroCHLOROthiazide 25 MG TABLET PO (12:49)
--- NOTE | 2022-05-05 13:07 | PM.CNCAR ---
Assessment and Plan Assessment and plan (1) Moderate risk chest pain: Code(s): R07.9 - Chest pain, unspecified Status: Acute Plan This is a 76-year-old lady admitted with atypical sounding chest pain does not sound clinically suspicious for myocardial ischemia and she has ruled out for acute coronary syndrome. It is interesting as I mentioned in my note that she provides this history in the past of having a coronary stent procedure done but yet several years ago subsequent angiograms here in this hospital did not demonstrate the presence of any previously deployed stents. Having said that she did have angiograms at that time with no coronary stenosis with chest pain as well. I believe he is stable enough for discharge after observation overnight. I do not believe we need to repeat another ischemia evaluation in this setting. Edil Lyons MD [facility] History of Present Illness History of Present Illness Consult date/time: 05/05/22 13:07 Reason For Visit: mod risk chest pain Narrative: This is a 76-year-old lady am seeing at the request of the hospitalist because of chest pain. She is known to me from an admission to this hospital several years ago with chest pain but not since then. She apparently was in her usual state of good health when yesterday evening at home she began to feel some pain in the center of the chest she describes as though somewhat punched her in the chest. She was not exerting herself when this began it was a moderate intensity pain that was like in an aching like sensation. It did not radiate to any other location it was not associated with any other symptomatology. She became concerned about her cardiac status and came to the emergency room for evaluation. The pain eventually subsided on its own she does not think it responded to any treatment she was given in the emergency room. Her electrocardiogram did not show any significant ischemic abnormalities interestingly a most recent ECG for comparison the heart rate was a bit faster that showed left bundle branch block. Indicating she obviously has a rate related left bundle. In any event she was admitted to the hospital for further evaluation. She has been asymptomatic since arrival in room 209 and has had 3 sets of normal troponin levels done. She remembers someone in the emergency room told her that she had a heart attack . I reassured her that this was not the case her biomarkers are unremarkable. The patient has an interesting history in my opinion in that she states she had a coronary intervention with stenting done many years ago in [place]. The reason I find it interesting is that in 2019 when she was here for further chest pain as I mentioned above she had an angiogram done by my partner, Dr. Piedra which did not describe the presence of any previously deployed stents. Her coronary arteries were patent at that time. She was seen a couple of times in the office for follow-up and then not seen for the last couple of years after that. She has done well without any intervening cardiac problems in the last couple of years and does not offer any other complaints. Review of Systems Constitutional: Constitutional: Reports no additional constitutional complaints Eyes: Eyes: Reports no additional eye complaints ENT: Reports system reviewed and no additional complaints, except as documented Cardiovascular: Cardiovascular: Reports as per HPI Respiratory: Respiratory: Reports no additional respiratory complaints Gastrointestinal: Gastrointestinal: Reports as per HPI Musculoskeletal: Musculoskeletal: Reports arthralgias Integumentary/Breasts: Skin/Breast: Reports system reviewed and no additional complaints, except as docu Neurologic: Reports system reviewed and no additional complaints, except as documented Endocrine: Endocrine: Reports no additional endocrine complaints Hematologic/Lymphatic: Hematologic/Lymphatic: Reports no additional sylvester
--- NOTE | 2022-05-05 14:24 | PM.DS ---
DS: Admitting Diagnosis Discharge Date 05/05/2022 Admitting Diagnosis Chest Pain DS: Discharge Diagnosis Discharge Diagnosis (1) Moderate risk chest pain: Code(s): R07.9 - Chest pain, unspecified Status: Acute Assessment and Plan: - Serial troponins are negative in setting of Heart Score of 5. - Patient now asymptomatic. - ACS is now ruled out and no further recommendations per cardiology. - Continue telemetry. - Continue home medications of carvedilol 3.125 mg p.o. b.i.d. and magnesium 200 mg daily. (2) Coronary artery disease: Code(s): I25.10 - Atherosclerotic heart disease of [place] coronary artery without angina pectoris Status: Acute Assessment and Plan: - See problem 1. Plan of care. - Continue home medications also of hydrochlorothiazide 25 mg q.a.m.. (3) Elevated d-dimer: Code(s): R79.89 - Other specified abnormal findings of blood chemistry Status: Acute Assessment and Plan: - Patient's D-dimer was marginally elevated, and can be adjusted for age, however given her symptoms and cardiac history well pursue CTA PE protocol. It is recognized that the D-dimer is a nonspecific predictor at times and can be elevated in the presence of other diseases and inflammation. - Patient currently asymptomatic. - CT PE protocol is negative for any PE. (4) Anxiety: Code(s): F41.9 - Anxiety disorder, unspecified Status: Acute Assessment and Plan: - patient does appear at least [id number] anxious. She is tearful at times especially when I walked in the room. - Continue patient's Lexapro. DS: Summary Hospital Course Reason for hospitalization: Chest pain Hospital Course: ?This 76-year-old, pleasant, female patient with significant past medical history of coronary artery disease with stenting x2, chronic anemia, anxiety, depression, hyperlipidemia, GERD, peptic ulcer disease, hypertension, IBS, left bundle branch block, obstructive sleep apnea, osteoarthritis, pancreatic cancer status post Whipple 9 years ago, PSVT and stress induced cardiomyopathy presented to the emergency room last evening on 05/04/2022 with complaints of having chest pain.? Patient endorses that she was on her phone and all of a sudden felt a abrupt punch to the chest.? She describes the pain that she felt as immediate, short lived, sharp in the center of her chest without radiation, without nausea or vomiting, without sweating and she has not been left tender in the chest wall after.? She does endorse that it felt like it felt when she had her previous NE. ? she decided to come to the emergency room for evaluation where workup was performed and chest x-ray was found to be negative she was dosed with aspirin and normal sinus rhythm 66 beats per minute without any ectopy shown on her EKG.? Labs were performed and were? significant for? an elevated D-dimer of 0.53, and normal troponins.? Upon my evaluation of the patient this morning she denies any acute chest pain, she denies any dyspnea she denies any acute symptoms at all.? She is however tearful and appears anxious.? CTA PE protocol was performed and it was negative for any findings of Acute PE. Cardiology consulted was placed secondary to patient's increased risk factors and heart score of? 5 points placing her at a moderate risk of MACE. No new recommendations were made on the part of Cardiology with exception for the patient to follow up with her PCP.? In addition review of patient's most previous cardiac testing history demonstrates an echocardiogram?from August 2020 that indicates stress induced cardiomyopathy with an ejection fraction of 60-65% with normal systolic function.?Pt. is stable for discharge at this time. Status at Discharge Functional status at discharge: independent ambulation Overall status at discharge: patient is back to baseline Time Spent with Patient Time attestation: Total time spent providing and
== END 2022-05-05 19:40 | disposition home or self-care (01) ==
LOC: ANHED 05-05 01:01 → ANHIMU 05-05 05:10
PROVIDERS: Admitting Provider Internal Medicine; Emergency Provider Emergency Medicine; PCP Family Medicine; Visit Provider Nurse Practitioner Adult Health
DX: R07.9 Chest pain, unspecified (principal); I25.10 Atherosclerotic heart disease of native coronary artery without angina pectoris; Z95.5 Presence of coronary angioplasty implant and graft; R79.89 Other specified abnormal findings of blood chemistry; F41.9 Anxiety disorder, unspecified; D64.9 Anemia, unspecified; I47.1 Supraventricular tachycardia; Z20.822 Contact with and (suspected) exposure to COVID-19; M19.90 Unspecified osteoarthritis, unspecified site; I51.81 Takotsubo syndrome; F32.A Depression, unspecified; E78.5 Hyperlipidemia, unspecified; K21.9 Gastro-esophageal reflux disease without esophagitis; I10 Essential (primary) hypertension; I44.7 Left bundle-branch block, unspecified; G43.909 Migraine, unspecified, not intractable, without status migrainosus; G47.33 Obstructive sleep apnea (adult) (pediatric); M81.0 Age-related osteoporosis without current pathological fracture; K27.9 Peptic ulcer, site unspecified, unspecified as acute or chronic, without hemorrhage or perforation; Z87.442 Personal history of urinary calculi; Z85.07 Personal history of malignant neoplasm of pancreas; Z79.899 Other long term (current) drug therapy; Z80.9 Family history of malignant neoplasm, unspecified; Z82.49 Family history of ischemic heart disease and other diseases of the circulatory system
CPT/HCPCS: 36415; 71045; 71275; 80053; 83690; 83880; 84484; 85025; 85055; 85380; 85610; 85730; 93005; 96374; A9270; C9803; G0378; J1885; Q9967; U0003; U0005

== ENCOUNTER 2022-05-30 09:18 | Emergency (ER) | payer MEDICARE, SELFPAY ==
--- NOTE | ~2022-05-30 | XR_ITS ---
EXAMINATION: XR shoulder RT min 2V, XR clavicle RT DATE: 05/30/2022 09:56 INDICATION: Right shoulder and clavicle pain after moving furniture TECHNIQUE: 1. AP internally and externally rotated, AP oblique externally rotated and axillary views of the righ t shoulder were obtained. 2. AP and cephalad angled AP views of the right clavicle were obtained. COMPARISON: None FINDINGS: Bone alignment is normal. No fracture. Mild acromioclavicular and glenohumeral osteoarthritis with sm all marginal osteophytes at both sides of the acromioclavicular joint and about the glenoid. Cystic c hange along the greater tuberosity footplate of the rotator cuff which can be seen with chronic rotat or cuff disease. Soft tissues are unremarkable. Visualized portions of the right lung are clear. IMPRESSION: 1. Mild acromioclavicular and glenohumeral osteoarthritis. No fracture or other acute osseous abnorma lity. 2. Cystic change at the greater tuberosity suggesting chronic rotator cuff disease. Reviewed, dictated and finalized at location A. IMPRESSION: 1. Mild acromioclavicular and glenohumeral osteoarthritis. No fracture or other acute osseous abnormality. 2. Cystic change at the greater tuberosity suggesting chronic rotator cuff dise ase.
[2022-05-30 09:26] VITALS: BP 146/87; PULSE 62; RESP 16; TEMP 36.5; O2SAT 97
--- NOTE | 2022-05-30 09:39 | ED.UPPEXIN ---
HPI - Extremity Injury (Upper) General Chief Complaint: Extremity Injury, Upper Stated Complaint: right shoulder pain Time Seen by Provider: 05/30/22 09:30 Source: patient Mode of arrival: ambulatory Limitations: no limitations History of Present Illness HPI narrative: Ms. García is a 76-year-old female patient presenting to the clinic today with complaints of right clavicle and shoulder pain. She reports she was lifting some heavy furniture yesterday and felt a pop possibly in her shoulder. She reports pain over the clavicle and shoulder with radiating pain down the arm and some numbness as well. She describes the pain as electrical and sharp. Related Data Home Medications Medication Instructions Recorded Confirmed oxybutynin chloride 5 mg tablet 5 mg PO TID 08/28/19 05/30/22 hydrochlorothiazide 25 mg tablet 25 mg PO QAM 09/28/20 05/30/22 carvedilol 3.125 mg tablet 3.125 mg PO BID 01/26/21 05/30/22 magnesium 200 mg tablet 200 mg PO DAILY 01/26/21 05/30/22 escitalopram oxalate 10 mg tablet 10 mg PO DAILY 02/22/21 05/30/22 Allergies Allergy/AdvReac Type Severity Reaction Status Date / Time codeine Allergy Unknown Vomiting, Verified 05/30/22 09:43 itching, swelling Review of Systems Review of Systems: Pertinent positives per HPI. Patient denies any fever, chills, rash, headache, visual changes, dizziness, cough, runny nose, sore throat, shortness of breath, chest pain, palpitations, nausea, vomiting, diarrhea, constipation, abdominal pain, or any urinary issues. [facility] Past Medical History Medical History (Updated 05/30/22 @ 10:10 by Danny Hu, ELMA) Anemia History of blood transfusion. Anxiety Arthritis Coronary artery disease Status post stent 2008. Negative stress test in 2012. No significant disease on [facility] in January 2018. Patient of Dr. Sharpe. Coronary artery disease Depression Dyslipidemia Finger fracture, left Gastric ulcer Gastroesophageal reflux disease History of blood transfusion Hypertension Irritable bowel syndrome Kidney stones Left bundle branch block Migraines Obstructive sleep apnea Osteoarthritis Osteoporosis Pancreatic cancer Status post Whipple. Paroxysmal supraventricular tachycardia Status post ablation in 2012. 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 Left heart catheterization was unremarkable. Diagnosed with stress-induced cardiomyopathy, EF 40-45%. Normal systolic function with an EF of 60 to 65% on echo in August 2020. Surgical History Surgical History History of arthroplasty of left knee (04/11/21) History of arthroscopy of both knees History of bilateral breast reduction surgery History of cardiac catheterization (2017) History of cardiac radiofrequency ablation For paroxysmal supraventricular tachycardia. History of cholecystectomy History of coronary artery stent placement (2008) History of hysterectomy Due to dysfunctional uterine bleeding. History of orthopedic surgery Right thumb pinning in April 2012. Bilateral foot surgery. History of tonsillectomy History of tubal ligation History of Whipple procedure Family History Family History Mother Colon cancer Heart disease Hyperlipidemia Grandparent Hypertension Father Unknown family medical history Social History Social History Social History: Ms. García is and lives in her own home in [place]. She has 3 grown sons and her middle son recently moved here from [place] and he has been staying with her. She is independent in her daily activities and lives an active lifestyle. 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
== END 2022-05-30 10:18 | disposition home or self-care (01) ==
PROVIDERS: Emergency Provider Nurse Practitioner Family
DX: M77.8 Other enthesopathies, not elsewhere classified (principal); M25.511 Pain in right shoulder; F41.9 Anxiety disorder, unspecified; M19.90 Unspecified osteoarthritis, unspecified site; Z95.5 Presence of coronary angioplasty implant and graft; E78.5 Hyperlipidemia, unspecified; K21.9 Gastro-esophageal reflux disease without esophagitis; I10 Essential (primary) hypertension; G47.33 Obstructive sleep apnea (adult) (pediatric); M81.0 Age-related osteoporosis without current pathological fracture
CPT/HCPCS: 73000; 73030; 99213; A4565; G0463

== ENCOUNTER 2022-09-08 17:38 | Emergency (ER) | payer OTHER, SELFPAY ==
--- NOTE | ~2022-09-08 | XR_ITS ---
EXAM: XR knee LT 3V DATE: 09/08/2022 18:57 HISTORY: FELL ON L.KNEE 3 WEEKS AGO. L.KNEE REPLACEMENT 1 1/2YRS AGO. . COMPARISON: 04/12/2022, images only. FINDINGS: Decreased mineralization. Uncomplicated left total knee arthroplasty No fracture or disloc ation. No lytic or blastic lesion. Quadriceps and Achilles enthesopathy. No erosion or periosteal odette nge. Small-volume joint fluid. IMPRESSION: No acute osseous finding in the right knee. Reviewed, dictated and finalized at location K. ULATION MAN
[2022-09-08 18:04] VITALS: BP 148/89; PULSE 71; RESP 16; TEMP 36.7; O2SAT 98
--- NOTE | 2022-09-08 18:37 | ED.EXTPRO ---
HPI - Extremity Problem General Chief complaint: Extremity Problem,Nontraumatic Stated complaint: left knee replacement, increased pain Time Seen by Provider: 09/08/22 18:25 History of Present Illness HPI Narrative: Patient is a 76-year-old female here for evaluation of left knee pain for 1 year. Patient reports she has had pain in the knee for which she remember, had her knee replaced about a year ago with transient relief of her pain but surely came back. She is over the past several days her pain has acutely increased without obvious trigger or trauma. She notes the pain is concentrated around her patella. She has been able to walk and bear weight without significant pain. She has been taking aspirin without much relief. Denies fevers, chills, nausea vomiting. She has not been in contact with her orthopedist for this Related Data Home Medications Medication Instructions Recorded Confirmed oxybutynin chloride 5 mg tablet 5 mg PO TID 08/28/19 05/30/22 hydrochlorothiazide 25 mg tablet 25 mg PO QAM 09/28/20 05/30/22 carvedilol 3.125 mg tablet 3.125 mg PO BID 01/26/21 05/30/22 magnesium 200 mg tablet 200 mg PO DAILY 01/26/21 05/30/22 escitalopram oxalate 10 mg tablet 10 mg PO DAILY 02/22/21 05/30/22 Allergies Allergy/AdvReac Type Severity Reaction Status Date / Time codeine Allergy Unknown Vomiting, Verified 05/30/22 09:43 itching, swelling Review of Systems Review of Systems: Gen: Denies fevers or chills Eyes: Denies eye pain or visual change ENT: Denies congestion Respiratory: Denies shortness of breath or cough CV: Denies chest pain or palpitations GI: Denies abdominal pain nausea, emesis or diarrhea denies burning, urgency, frequency or hematuria Musculoskeletal: Reports left knee pain. Denies back pain or muscle pain Neuro: Denies numbness, tingling, weakness or focal weakness Skin: Denies rash Except as documented, all other systems reviewed and negative [facility] Past Medical History Medical History Anemia History of blood transfusion. Anxiety Arthritis Coronary artery disease Status post stent 2008. Negative stress test in 2012. No significant disease on [facility] in January 2018. Patient of Dr. Sharpe. Coronary artery disease Depression Dyslipidemia Finger fracture, left Gastric ulcer Gastroesophageal reflux disease History of blood transfusion Hypertension Irritable bowel syndrome Kidney stones Left bundle branch block Migraines Obstructive sleep apnea Osteoarthritis Osteoporosis Pancreatic cancer Status post Whipple. Paroxysmal supraventricular tachycardia Status post ablation in 2012. 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 Left heart catheterization was unremarkable. Diagnosed with stress-induced cardiomyopathy, EF 40-45%. Normal systolic function with an EF of 60 to 65% on echo in August 2020. Surgical History Surgical History History of arthroplasty of left knee (04/11/21) History of arthroscopy of both knees History of bilateral breast reduction surgery History of cardiac catheterization (2017) History of cardiac radiofrequency ablation For paroxysmal supraventricular tachycardia. History of cholecystectomy History of coronary artery stent placement (2008) History of hysterectomy Due to dysfunctional uterine bleeding. History of orthopedic surgery Right thumb pinning in April 2012. Bilateral foot surgery. History of tonsillectomy History of tubal ligation History of Whipple procedure Family History Family History Mother Colon cancer Heart disease Hyperlipidemia Grandparent Hypertension Father Unknown family medical history Social History Social Hi
[2022-09-08] MEDS: ACETAMINOPHEN 325 MG TABLET 650 MG PO (18:58)
[2022-09-08] MEDS: LIDOCAINE 5% PATCH 1 PATCH TRANSDERM (19:28)
[2022-09-08 19:31] VITALS: BP 139/80; PULSE 56; O2SAT 96
== END 2022-09-08 19:34 | disposition home or self-care (01) ==
PROVIDERS: Emergency Provider Physician Assistant
DX: M25.562 Pain in left knee (principal); I25.10 Atherosclerotic heart disease of native coronary artery without angina pectoris; I10 Essential (primary) hypertension
CPT/HCPCS: 73562; 99283; A9270

== ENCOUNTER 2022-12-20 19:32 | Emergency (ER) | payer MEDICARE, SELFPAY ==
[2022-12-20 19:35] VITALS: BP 193/91; PULSE 62; RESP 16; TEMP 36.4; O2SAT 97
[2022-12-20 20:02] LABS: Basophils Percent Auto 0.5 % (0.2-1.2); Eosinophils Absolute Auto 0.2 K/mm3 (0-0.3); Eosinophils Percent Auto 1.8 % (0-4.4); Hematocrit 43.1 % (37.0-47.0); Hemoglobin 13.9 g/dL (12.0-15.0); Immature Granulocyte Absolute 0.01 K/mm3 (0.00-0.031); Immature Granulocyte Percent A 0.1 % (0-0.5); Lymphocytes Absolute Auto 2.09 K/mm3 (0.9-3.2); Mean Corpuscular HGB Conc 32.3 g/dl (32-36); Mean Corpuscular Hemoglobin 27.9 pg (26-34); Mean Corpuscular Volume 86.4 fl (80-100); Mean Platelet Volume 10.7 fl (7.4-10.4); Monocytes Absolute Auto 0.4 K/mm3 (0.1-0.6); Monocytes Percent Auto 4.8 % (2.6-8.5); Neutrophils Absolute Auto 5.7 K/mm3 (1.3-6.7); Neutrophils Percent Auto 67.8 % (45.5-73.1); Platelet Count Result 231 k/mm3 (150-375); Red Blood Count 4.99 M/mm3 (4.2-5.4); Red Cell Distribution Width 13.5 % (11.5-14.5); White Blood Count 8.4 K/mm3 (4.5-10.0)
[2022-12-20 20:14] LABS: Alanine Aminotransferase 22 U/L (6-35); Albumin Level 4.5 g/dL (3.5-5.1); Alkaline Phosphatase 140 U/L (38-126); Anion Gap 8 mmol/L (8-16); Aspartate Amino Transferase 22 U/L (14-36); Bilirubin,Total 1.5 mg/dL (0.2-1.3); Blood Urea Nitrogen 14 mg/dL (7-17); Calcium 9.6 mg/dL (8.4-10.2); Carbon Dioxide 31 mmol/L (22-30); Chloride 102 mmol/L (98-107); Estimated Glomerular Filt Rate > 60; Glucose 108 mg/dL (65-110); Lipase 22 U/L (23-300); Potassium 3.5 mmol/L (3.4-5.0); Sodium 141 mmol/L (137-145)
--- NOTE | 2022-12-20 20:56 | PC.NURSE ---
patient reports wait is too long and left from triage area
== END 2022-12-20 20:59 | disposition left against medical advice (07) ==
PROVIDERS: Emergency Provider Emergency Medicine; PCP Family Medicine
DX: R11.2 Nausea with vomiting, unspecified (principal)
CPT/HCPCS: 36415; 80053; 83690; 85025; 99199

== ENCOUNTER 2022-12-21 13:19 | Observation (INO) | payer MEDICARE, SELFPAY ==
[2022-12-21] VITALS (10 sets, daily range): BP systolic 128–202; BP diastolic 72–93; PULSE 42–80; RESP 14–44; TEMP 36.4–36.6; O2SAT 94–99; BMI 28.3
--- NOTE | ~2022-12-21 | CT_ITS ---
EXAMINATION: CT brain wo con DATE: 12/21/2022 18:04 INDICATION: Headache TECHNIQUE: Computed tomography (CT) of the head was performed without intravenous contrast. The mA wa s adjusted according to patient size. Iterative reconstruction technique was employed. Exam dose: 60 5.33 mGy-cm total exam DLP. COMPARISON: 07/29/2021 MRI brain/brainstem 07/28/2021 CT brain FINDINGS: There is intravenous contrast material on board from CT abdomen pelvis performed earlier sa me date. There are vertebral and bilateral carotid siphon internal carotid artery calcifications. There is non specific diminished attenuation of some of the cerebral white matter, likely due to chronic small ves irish ischemic changes. Small chronic infarct, left frontal lobe. No intracranial mass lesion or hemorrhage, midline shift or mass effect. No subdural or epidural hematoma is detected. There is partial opacification of ethmoid air cells bilaterally. The paranasal sinuses and mastoid ai r cells are otherwise unremarkable. No fracture or bone destruction of the cranial vault. IMPRESSION: Chronic left frontal lobe infarct Cerebral atherosclerosis and chronic small vessel ischemic changes of the cerebral white matter No significant change since 07/28/2021 is detected Reviewed, dictated and finalized at [facility]. Reviewed, dictated and finalized at [facility]. IMPRESSION: Chronic left frontal lobe infarct Cerebral atherosclerosis and chronic small vessel ischemic changes of the cereb ral white matter No significant change since 07/28/2021 is detected
--- NOTE | ~2022-12-21 | CT_ITS ---
EXAMINATION: CT abdomen pelvis w con DATE: 12/21/2022 17:30 INDICATION: Epigastric abdominal pain TECHNIQUE: Computed tomography (CT) of the abdomen and pelvis was performed with 100 CC Omnipaque 350 intravenous contrast. Automated exposure control and iterative reconstruction technique were employe d. Exam dose: 568.77 mGy-cm total exam DLP. COMPARISON: 07/28/2021 CT abdomen pelvis FINDINGS: There is minimal bibasilar dependent lower lobe atelectasis. The lung bases are clear of in filtrate or consolidation. Normal heart size. No pericardial or pleural effusion. Status post cholecystectomy. No bile duct or pancreatic duct dilatation. No hepatic space occupying mass lesion. Normal splenic size. Multiple hypoattenuating areas are noted throughout the spleen, also present on 07/28/2021. Postoperative changes from Whipple procedure. Normal morphology of the adrenal glands. Bilateral predominantly pararenal renal cysts. No urinary tract calculus or hydroureteronephrosis. There is atherosclerotic calcification but normal caliber of the abdominal aorta. No intraperitoneal or retroperitoneal or pelvic mass lesion or adenopathy or ascites is detected. There is diffuse thickening of the urinary bladder wall which may be due to under distention versus c ystitis. This does not appear significantly changed compared to 07/28/2021. Normal appendix. Diverticulosis of the left and right colon; no CT evidence of diverticulitis. No bowel obstruction, bowel thickening, pneumatosis or intraperitoneal free air. Severe degenerative changes apophyseal joints of the lumbar and lumbosacral area with associated grad e 1 anterolisthesis at L4-5. No suspicious osteolytic or osteoblastic lesions are noted. IMPRESSION: Status post cholecystectomy Status post Whipple procedure Bilateral renal cysts Diverticulosis of left and right colon; no evidence of diverticulitis Reviewed, dictated and finalized at [facility]. Reviewed, dictated and finalized at [facility].
[2022-12-21 14:04] LABS: Basophils Percent Auto 0.3 % (0.2-1.2); Eosinophils Absolute Auto 0.1 K/mm3 (0-0.3); Eosinophils Percent Auto 1.1 % (0-4.4); Hemoglobin 13.4 g/dL (12.0-15.0); Immature Granulocyte Absolute 0.01 K/mm3 (0.00-0.031); Immature Granulocyte Percent A 0.1 % (0-0.5); Lymphocytes Percent Auto 15.4 % (18.3-44.2); Mean Corpuscular HGB Conc 32.7 g/dl (32-36); Mean Corpuscular Volume 85.8 fl (80-100); Mean Platelet Volume 10.8 fl (7.4-10.4); Monocytes Absolute Auto 0.4 K/mm3 (0.1-0.6); Neutrophils Absolute Auto 7.2 K/mm3 (1.3-6.7); Neutrophils Percent Auto 79.1 % (45.5-73.1); Platelet Count Result 245 k/mm3 (150-375); Red Blood Count 4.78 M/mm3 (4.2-5.4); Red Cell Distribution Width 13.3 % (11.5-14.5); White Blood Count 9.1 K/mm3 (4.5-10.0)
[2022-12-21 14:20] LABS: Alanine Aminotransferase 22 U/L (6-35); Albumin Level 4.4 g/dL (3.5-5.1); Alkaline Phosphatase 137 U/L (38-126); Anion Gap 8 mmol/L (8-16); Aspartate Amino Transferase 22 U/L (14-36); Bilirubin,Total 1.6 mg/dL (0.2-1.3); Blood Urea Nitrogen 16 mg/dL (7-17); Calcium 9.7 mg/dL (8.4-10.2); Carbon Dioxide 28 mmol/L (22-30); Chloride 102 mmol/L (98-107); Estimated CRCL calculation 66 ml/min; Estimated Glomerular Filt Rate > 60; Glucose 124 mg/dL (65-110); Lipase 27 U/L (23-300); Potassium 3.7 mmol/L (3.4-5.0); Sodium 138 mmol/L (137-145)
[2022-12-21 16:22] LABS: Appearance Urine Cloudy (Clear); Bacteria Urine 4+ /hpf; Bilirubin Urine Negative (Negative); Blood Urine Negative (Negative); Color Urine Yellow (Yellow); Glucose Urine UA Negative (Negative); Ketones Urine Trace mg/dL (Negative); Leukocyte Esterase Ur 2+ LEU/UL (Negative); Nitrate Urine Positive (Negative); Protein Urine Trace mg/dL (Negative); RBC Urine 0-2 /hpf (0-2); Specific Grav Ur 1.021 (1.001-1.035); Squamous Epithelial Cell Urine Occasional /hpf (Few); WBC Urine 21-50 /hpf; pH Urine 5.5 (5.0-9.0)
[2022-12-21 16:30] LABS: Add Urine Microscopic? YES
[2022-12-21] MEDS: SODIUM CHLORIDE 0.9% IV 1,000 ML 150 ML IV CONT (17:09)
[2022-12-21] MEDS: ONDANSETRON INJ 4 MG/2 ML VIAL IV PUSH ×2 (17:10→18:12)
[2022-12-21] MEDS: KETOROLAC 30 MG/ML VIAL (*BKC) 15 MG IV PUSH (17:10)
[2022-12-21] MEDS: HYDROmorphone HCL INJ (*CRX) 1 MG/ML SYR IV PUSH (18:12)
--- NOTE | 2022-12-21 18:18 | ED.NAVMDI ---
HPI - Nausea/Vomiting/Diarrhea General Chief complaint: Nausea/Vomiting/Diarrhea Stated complaint: vomiting x2 days Time Seen by Provider: 12/21/22 15:45 Source: patient and family Mode of arrival: ambulatory Limitations: no limitations History of Present Illness HPI Narrative: 76-year-old with a history of hypertension hyperlipidemia here with complaints of nausea and vomiting and also complains of headache which has been ongoing for past few days. She denies any fever or chills. Patient states that she was traveling in the last few days. Denies any trauma. MD elicited complaint: nausea and vomiting Onset (ago): day(s) (2) Description of vomiting: watery Associated nausea: Yes Associated abdominal pain: Yes Location of pain: epigastric Pain consistency: constant Quality: aching Exacerbating factors: none Relieving factors: none Associated symptoms: headaches Related Data Home Medications Medication Instructions Recorded Confirmed oxybutynin chloride 5 mg tablet 5 mg PO TID 08/28/19 05/30/22 hydrochlorothiazide 25 mg tablet 25 mg PO QAM 09/28/20 05/30/22 carvedilol 3.125 mg tablet 3.125 mg PO BID 01/26/21 05/30/22 magnesium 200 mg tablet 200 mg PO DAILY 01/26/21 05/30/22 escitalopram oxalate 10 mg tablet 10 mg PO DAILY 02/22/21 05/30/22 ondansetron 4 mg disintegrating mg 12/21/22 tablet Allergies Allergy/AdvReac Type Severity Reaction Status Date / Time codeine Allergy Unknown Vomiting, Verified 12/21/22 13:38 itching, swelling Review of Systems Review of Systems: All systems reviewed & are unremarkable except as noted in HPI and below Constitutional: Constitutional: Reports no additional constitutional complaints Eyes: Eyes: Reports no additional eye complaints ENT: Reports system reviewed and no additional complaints, except as documented Cardiovascular: Cardiovascular: Reports no additional cardiovascular complaints Respiratory: Respiratory: Reports no additional respiratory complaints Gastrointestinal: Gastrointestinal: Reports abdominal pain Musculoskeletal: Musculoskeletal: Reports no additional musculoskeletal complaints Neurologic: Reports as per HPI [facility] Past Medical History Medical History Anemia History of blood transfusion. Anxiety Arthritis Coronary artery disease Status post stent 2008. Negative stress test in 2012. No significant disease on [facility] in January 2018. Patient of Dr. Sharpe. Coronary artery disease Depression Dyslipidemia Finger fracture, left Gastric ulcer Gastroesophageal reflux disease History of blood transfusion Hypertension Irritable bowel syndrome Kidney stones Left bundle branch block Migraines Obstructive sleep apnea Osteoarthritis Osteoporosis Pancreatic cancer Status post Whipple. Paroxysmal supraventricular tachycardia Status post ablation in 2012. 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 Left heart catheterization was unremarkable. Diagnosed with stress-induced cardiomyopathy, EF 40-45%. Normal systolic function with an EF of 60 to 65% on echo in August 2020. Surgical History Surgical History History of arthroplasty of left knee (04/11/21) History of arthroscopy of both knees History of bilateral breast reduction surgery History of cardiac catheterization (2017) History of cardiac radiofrequency ablation For paroxysmal supraventricular tachycardia. History of cholecystectomy History of coronary artery stent placement (2008) History of hysterectomy Due to dysfunctional uterine bleeding. History of orthopedic surgery Right thumb pinning in April 2012. Bilateral foot surgery. History of tonsillectomy History of tubal ligation History of Whipple procedure Family History Family History (Rev
--- NOTE | 2022-12-21 18:44 | PC.NURSE ---
PT NOTED TO BY HYPOXIC AFTER DILAUDID DOSE. PLACED ON 2L O2 PNC. DR HAYWARD MADE AWARE.
--- NOTE | 2022-12-21 18:45 | ECG_ITS ---
Measurements Intervals [place] Rate: 42 P: 57 MS: 177 QRS: 4 QRSD: 93 T: 75 QT: 489 QTc: 410 Interpretive Statements SINUS BRADYCARDIA CONSIDER INFERIOR INFARCT, AGE INDETERMINATE BORDERLINE ST-T WAVE ABNORMALITY- HIGH LATERAL LEADS ABNORMAL ECG COMPARED TO ECG 05/04/2022 19:33:05 SINUS BRADYCARDIA NOW PRESENT Electronically Signed On 12-21-2022 20:42:00 CDT by Stuart Austin D.O.
--- NOTE | 2022-12-21 20:05 | PM.IMHP ---
H&P: HPI History of Present Illness Date/Time: 12/21/22 20:05 Chief Complaint: Intractable nausea and vomiting Narrative: This is a 76-year-old female with past medical history significant for coronary artery disease, dyslipidemia, gastroesophageal reflux disease, irritable bowel syndrome, status post Whipple's procedure, obstructive sleep apnea, osteoarthritis, pancreatic cancer, paroxysmal supraventricular tachycardia. Patient presents to the emergency room due to nausea and vomiting for 1 day after a camping trip patient denies any fevers, rigors, chills, diarrhea has not been able to keep anything down for several hours now. Preliminary workup was significant for CT of abdomen and pelvis was reported as: FINDINGS: There is minimal bibasilar dependent lower lobe atelectasis. The lung bases are clear of infiltrate or consolidation. Normal heart size. No pericardial or pleural effusion. Status post cholecystectomy. No bile duct or pancreatic duct dilatation. No hepatic space occupying mass lesion. Normal splenic size. Multiple hypoattenuating areas are noted throughout the spleen, also present on 07/28/2021. Postoperative changes from Whipple procedure. Normal morphology of the adrenal glands. Bilateral predominantly pararenal renal cysts. No urinary tract calculus or hydroureteronephrosis. There is atherosclerotic calcification but normal caliber of the abdominal aorta. No intraperitoneal or retroperitoneal or pelvic mass lesion or adenopathy or ascites is detected. There is diffuse thickening of the urinary bladder wall which may be due to under distention versus cystitis. This does not appear significantly changed compared to 07/28/2021. Normal appendix. Diverticulosis of the left and right colon; no CT evidence of diverticulitis. No bowel obstruction, bowel thickening, pneumatosis or intraperitoneal free air. Severe degenerative changes apophyseal joints of the lumbar and lumbosacral area with associated grade 1 anterolisthesis at L4-5. No suspicious osteolytic or osteoblastic lesions are noted. IMPRESSION:? Status post cholecystectomy Status post Whipple procedure Bilateral renal cysts Diverticulosis of left and right colon; no evidence of diverticulitis Review of Systems Review of Systems: Nausea, vomiting x1 day duration Constitutional: Constitutional: Denies chills, Denies fever(s), Denies malaise and Denies weakness Eyes: Eyes: Denies change in vision ENT: Denies dysphagia and Denies odynophagia Cardiovascular: Cardiovascular: Denies chest pain, Denies lightheadedness and Denies palpitations Respiratory: Respiratory: Denies change in phlegm color, Denies chest congestion, Denies cough, Denies pain on inspiration and Denies dyspnea Gastrointestinal: Gastrointestinal: Denies abdominal pain, Denies melena, Denies hematochezia, Denies coffee ground emesis, Denies dyspepsia, Denies heartburn, Denies diarrhea, Reports nausea and Reports vomiting Genitourinary: Genitourinary: Denies dysuria Musculoskeletal: Musculoskeletal: Denies back pain, Denies myalgias, Denies joint swelling and Denies muscle weakness Integumentary/Breasts: Skin/Breast: Denies rash Neurologic: Denies focal weakness and Denies Sensory deficit (Neuro) Psychiatric: Psychiatric: Reports no additional psychiatric complaints and Reports as per HPI Endocrine: Endocrine: Denies cold intolerance, Denies flushing, Denies heat intolerance, Denies polyphagia, Denies polydipsia and Denies palpitations Allergic/Immunologic: Allergic/Immunologic: Reports no additional allergic/immunologic complaints and Reports as per HPI [facility] Past Medical History Medical History Anemia History of blood transfusion. Anxiety Arthritis Coronary artery disease Status post stent 2008. Negative stress test in 2012. No significant disease on [facility] in January 2018. Patient of Dr. Sharpe. Coronary artery disease Depression Dyslipidem
[2022-12-21] MEDS: SUMAtriptan SUCCINATE 6 MG/0.5 ML VIAL SUB-Q (22:00)
[2022-12-21] MEDS: SODIUM CHLORIDE 0.9% IV 1,000 ML 125 ML IV CONT (22:09)
--- NOTE | 2022-12-21 23:57 | ADMGEN ---
This patient, Olinda García, was admitted to IMU Room 212-01 at 2030. Patient/family oriented to hospital policies and general routines including ID bracelet, bed and alarms, visiting hours, pain management, procedures, bathroom and other care routines, personal items, smoking policy, room service/diet, and visiting hours. Information on how to activate the Rapid Response Team has been discussed. Patient/Family are encouraged to report perceived risks to care and to ask questions if they do not understand what they are told or what they should do.
[2022-12-22] VITALS (15 sets, daily range): BP systolic 140–174; BP diastolic 67–91; PULSE 47–77; RESP 12–18; TEMP 36.4–36.9; O2SAT 96–99
--- NOTE | 2022-12-22 01:34 | PCRCNOTE ---
Pt refusing to wear hospital CPAP. RN informed.
[2022-12-22] MEDS: ONDANSETRON INJ 4 MG/2 ML VIAL IV PUSH ×3 (03:52→13:15)
[2022-12-22 04:01] LABS: Basophils Percent Auto 0.3 % (0.2-1.2); Eosinophils Percent Auto 0.3 % (0-4.4); Hematocrit 40.2 % (37.0-47.0); Hemoglobin 12.9 g/dL (12.0-15.0); Immature Granulocyte Absolute 0.03 K/mm3 (0.00-0.031); Immature Granulocyte Percent A 0.3 % (0-0.5); Mean Corpuscular HGB Conc 32.1 g/dl (32-36); Mean Corpuscular Volume 87.4 fl (80-100); Mean Platelet Volume 10.7 fl (7.4-10.4); Monocytes Absolute Auto 0.4 K/mm3 (0.1-0.6); Monocytes Percent Auto 3.7 % (2.6-8.5); Neutrophils Absolute Auto 7.9 K/mm3 (1.3-6.7); Neutrophils Percent Auto 79.4 % (45.5-73.1); Platelet Count Result 225 k/mm3 (150-375); Red Cell Distribution Width 13.3 % (11.5-14.5)
[2022-12-22 04:22] LABS: Anion Gap 9 mmol/L (8-16); Blood Urea Nitrogen 18 mg/dL (7-17); Calcium 9.6 mg/dL (8.4-10.2); Carbon Dioxide 29 mmol/L (22-30); Chloride 102 mmol/L (98-107); Estimated CRCL calculation 63 ml/min; Estimated Glomerular Filt Rate > 60; Glucose 109 mg/dL (65-110); Potassium 3.8 mmol/L (3.4-5.0); Sodium 140 mmol/L (137-145)
[2022-12-22] MEDS: SODIUM CHLORIDE 0.9% IV 1,000 ML 125 ML IV CONT ×2 (06:34→15:59)
[2022-12-22] MEDS: ESCITALOPRAM OXALATE 10 MG TABLET PO (11:02)
[2022-12-22] MEDS: hydroCHLOROthiazide 25 MG TABLET PO (11:02)
[2022-12-22] MEDS: lisinopriL 20 MG TABLET PO (11:02)
[2022-12-22] MEDS: oxyBUTYnin CHLORIDE 5 MG TABLET PO ×3 (11:02→17:32)
--- NOTE | 2022-12-22 12:25 | PM.IMPN ---
Progress Note: A&P Assessment and Plan (1) Urinary tract infection: Code(s): N39.0 - Urinary tract infection, site not specified Status: Acute Assessment and Plan: Continue Rocephin, follow up urine culture (2) Sinus bradycardia: Code(s): R00.1 - Bradycardia, unspecified Status: Acute Assessment and Plan: Stable (3) Intractable nausea and vomiting: Code(s): R11.2 - Nausea with vomiting, unspecified Status: Acute Assessment and Plan: IV fluids, supportive care, clear liquid diet Could be secondary to UTI versus gastroenteritis? (4) Coronary artery disease: Code(s): I25.10 - Atherosclerotic heart disease of [place] coronary artery without angina pectoris Status: Acute Assessment and Plan: Stable, continue home meds Plan DVT prophylaxis with SCDs GI prophylaxis not indicated Code status full code Subjective Date/time seen: 12/22/22 12:25 Interval history: 76-year-old female with past medical history significant for heart disease, hyperlipidemia, GERD, Whipple procedure for pancreatic cancer is presenting with nausea and vomiting 1 day after being on a camping trip. No overnight events noted. No chest pain or shortness of breath. No diarrhea. No fevers or chills. Continues to have nausea and vomiting overnight. Requesting clear liquid diet today. Review of Systems Review of Systems: 12 point review of systems was assessed and was negative except as noted in the HPI Exam Narrative: General: No acute distress, alert and oriented per baseline HEENT: Atraumatic, normocephalic, mucous membranes moist CV: Regular rate and rhythm, S1, S2 Lungs: Clear to auscultation bilaterally, no rales or crackles noted, no wheezes, good air entry Abdomen: Soft, nontender, nondistended Extremities: Normal to inspection Skin: No rashes noted, no lesions or wounds seen Psych: Euthymic, normal affect Objective Data Vital Signs Vital Signs: Vital Signs - 24 hr 12/21/22 13:30 12/21/22 16:38 12/21/22 16:39 Temperature 97.6 F Pulse Rate 62 50 L 73 Respiratory Rate 18 Blood Pressure 128/90 142/74 H 138/93 H Pulse Oximetry 94 Oxygen Delivery Room Air Oxygen Flow Rate 12/21/22 16:42 12/21/22 16:39 12/21/22 17:09 Temperature Pulse Rate 80 54 L 64 Respiratory Rate 16 14 Blood Pressure 141/93 H 142/74 H 129/84 Pulse Oximetry 95 Oxygen Delivery Oxygen Flow Rate 12/21/22 18:09 12/21/22 18:30 12/21/22 18:40 Temperature Pulse Rate 55 L 55 L Respiratory Rate 15 44 H Blood Pressure 130/81 144/79 H Pulse Oximetry 97 97 97 Oxygen Delivery Nasal Cannula Oxygen Flow Rate 2 12/21/22 19:36 12/21/22 20:43 12/22/22 00:00 Temperature 98 F 97.8 F 97.6 F Pulse Rate 42 L 57 L 47 L Respiratory Rate 18 18 16 Blood Pressure 150/72 H 202/83 H 143/70 H Pulse Oximetry 99 98 99 Oxygen Delivery Oxygen Flow Rate 12/22/22 00:00 12/22/22 00:00 12/22/22 02:00 Temperature Pulse Rate 50 L 47 L Respiratory Rate Blood Pressure Pulse Oximetry Oxygen Delivery Room Air Oxygen Flow Rate 12/22/22 04:00 12/22/22 04:00 12/22/22 04:00 Temperature 97.8 F Pulse Rate 47 L 47 L Respiratory Rate 18 Blood Pressure 174/83 H Pulse Oximetry Oxygen Delivery Room Air Oxygen Flow Rate 12/22/22 06:00 12/22/22 08:00 12/22/22 09:02 Temperature 98.3 F Pulse Rate 49 L 58 L Respiratory Rate 12 Blood Pressure 144/91 H Pulse Oximetry 99 99 Oxygen Delivery Room Air Oxygen Flow Rate 12/22/22 08:00 12/22/22 08:00 12/22/22 10:00 Temperature Pulse Rate 59 L 60 Respiratory Rate Blood Pressure Pulse Oximetry 99 Oxygen Delivery Room Air Oxygen Flow Rate 12/22/22 11:00 12/22/22 12:00 12/22/22 12:00 Temperature 97.8 F Pulse Rate 52 L 56 L Respiratory Rate 16 Blood Pressure 140/74 Pulse Oximetry 97 98 Oxygen Delivery
[2022-12-22] MEDS: PANTOPRAZOLE 40 MG TABLET PO (13:10)
[2022-12-22] MEDS: PROMETHAZINE HCL 25 MG/ML AMPUL 12.5 MG IV PUSH (15:39)
[2022-12-22] MEDS: carvediloL 3.125 MG TABLET PO (21:16)
[2022-12-22] MEDS: KETOROLAC 30 MG/ML VIAL (*BKC) IV PUSH (23:47)
[2022-12-23] VITALS (7 sets, daily range): BP systolic 149–160; BP diastolic 70–99; PULSE 46–67; RESP 16–18; TEMP 36.1–36.5; O2SAT 93–98
[2022-12-23] MEDS: SODIUM CHLORIDE 0.9% IV 1,000 ML 125 ML IV CONT (01:57)
--- NOTE | 2022-12-23 08:17 | PM.IMPN ---
Progress Note: A&P Assessment and Plan (1) Intractable nausea and vomiting: Code(s): R11.2 - Nausea with vomiting, unspecified Status: Acute Assessment and Plan: NPO for ice chips only Trial of clear liquids and advanced diet as tolerated in the morning (2) Sinus bradycardia: Code(s): R00.1 - Bradycardia, unspecified Status: Acute Assessment and Plan: Continue to monitor (3) Headache: Qualifiers: Headache chronicity pattern: unspecified pattern Headache type: unspecified Intractability: intractable Qualified Code(s): R51.9 - Headache, unspecified Code(s): R51.9 - Headache, unspecified Status: Acute Assessment and Plan: Chronic headaches (4) Obstructive sleep apnea: Code(s): G47.33 - Obstructive sleep apnea (adult) (pediatric) Status: Chronic Assessment and Plan: Noncompliant with CPAP (5) Coronary artery disease: Code(s): I25.10 - Atherosclerotic heart disease of [place] coronary artery without angina pectoris Status: Acute Assessment and Plan: No chest pain (6) Urinary tract infection: Code(s): N39.0 - Urinary tract infection, site not specified Status: Acute Assessment and Plan: Started on Rocephin 12/21 Plan DVT prophylaxis with SCDs GI prophylaxis not indicated Code status full code Subjective Date/time seen: 12/23/22 08:17 Interval history: 76-year-old female with past medical history significant for heart disease, hyperlipidemia, GERD, Whipple procedure for pancreatic cancer is presenting with nausea and vomiting 1 day after being on a camping trip. No overnight events noted. No chest pain or shortness of breath. No diarrhea. No fevers or chills. Continues to have nausea and vomiting overnight. Requesting clear liquid diet today. Review of Systems Review of Systems: 12 point review of systems was assessed and was negative except as noted in the HPI Exam Narrative: General: No acute distress, alert and oriented per baseline HEENT: Atraumatic, normocephalic, mucous membranes moist CV: Regular rate and rhythm, S1, S2 Lungs: Clear to auscultation bilaterally, no rales or crackles noted, no wheezes, good air entry Abdomen: Soft, nontender, nondistended Extremities: Normal to inspection Skin: No rashes noted, no lesions or wounds seen Psych: Euthymic, normal affect Objective Data Vital Signs Vital Signs: Vital Signs - 24 hr 12/22/22 09:02 12/22/22 10:00 12/22/22 11:00 Temperature Pulse Rate 60 52 L Respiratory Rate Blood Pressure Pulse Oximetry 99 Oxygen Delivery Room Air 12/22/22 12:00 12/22/22 12:00 12/22/22 12:00 Temperature 97.8 F Pulse Rate 56 L 59 L Respiratory Rate 16 Blood Pressure 140/74 Pulse Oximetry 97 98 Oxygen Delivery Room Air 12/22/22 14:00 12/22/22 16:00 12/22/22 16:00 Temperature Pulse Rate 60 49 L Respiratory Rate Blood Pressure Pulse Oximetry 98 Oxygen Delivery Room Air 12/22/22 16:00 12/22/22 18:00 12/22/22 20:00 Temperature 98.4 F 97.8 F Pulse Rate 50 L 77 54 L Respiratory Rate 16 16 Blood Pressure 174/79 H 167/67 H Pulse Oximetry 97 96 Oxygen Delivery 12/22/22 21:16 12/22/22 20:00 12/23/22 00:00 Temperature Pulse Rate 60 Respiratory Rate Blood Pressure Pulse Oximetry Oxygen Delivery Room Air Room Air 12/22/22 20:00 12/22/22 22:00 12/23/22 00:00 Temperature Pulse Rate 69 75 61 Respiratory Rate Blood Pressure Pulse Oximetry Oxygen Delivery 12/23/22 00:00 12/23/22 02:00 12/23/22 04:00 Temperature 96.9 F L 97.7 F Pulse Rate 60 53 L 50 L Respiratory Rate 18 18 Blood Pressure 160/70 H 149/74 H Pulse Oximetry 93 98 Oxygen Delivery 12/23/22 04:00 12/23/22 04:00 12/23/22 06:00 Temperature Pulse Rate 46 L 49 L Respiratory Rate Blood Pressure Pulse Oximetry Oxygen Delivery
[2022-12-23 09:21] LABS: Basophils Percent Auto 0.6 % (0.2-1.2); Eosinophils Absolute Auto 0.2 K/mm3 (0-0.3); Eosinophils Percent Auto 2.4 % (0-4.4); Hemoglobin 12.5 g/dL (12.0-15.0); Immature Granulocyte Absolute 0.02 K/mm3 (0.00-0.031); Immature Granulocyte Percent A 0.3 % (0-0.5); Lymphocytes Absolute Auto 1.79 K/mm3 (0.9-3.2); Lymphocytes Percent Auto 24.8 % (18.3-44.2); Mean Corpuscular HGB Conc 32.1 g/dl (32-36); Mean Corpuscular Hemoglobin 28.1 pg (26-34); Mean Corpuscular Volume 87.6 fl (80-100); Mean Platelet Volume 10.7 fl (7.4-10.4); Monocytes Absolute Auto 0.3 K/mm3 (0.1-0.6); Monocytes Percent Auto 4.3 % (2.6-8.5); Neutrophils Absolute Auto 4.9 K/mm3 (1.3-6.7); Neutrophils Percent Auto 67.6 % (45.5-73.1); Platelet Count Result 208 k/mm3 (150-375); Red Blood Count 4.45 M/mm3 (4.2-5.4); Red Cell Distribution Width 13.6 % (11.5-14.5); White Blood Count 7.2 K/mm3 (4.5-10.0)
[2022-12-23 09:35] LABS: Alanine Aminotransferase 22 U/L (6-35); Alkaline Phosphatase 100 U/L (38-126); Anion Gap 7 mmol/L (8-16); Aspartate Amino Transferase 24 U/L (14-36); Blood Urea Nitrogen 11 mg/dL (7-17); Carbon Dioxide 29 mmol/L (22-30); Chloride 106 mmol/L (98-107); Estimated CRCL calculation 72 ml/min; Estimated Glomerular Filt Rate > 60; Glucose 143 mg/dL (65-110); Potassium 3.4 mmol/L (3.4-5.0); Sodium 142 mmol/L (137-145)
[2022-12-23] MEDS: carvediloL 3.125 MG TABLET PO (09:39)
[2022-12-23] MEDS: oxyBUTYnin CHLORIDE 5 MG TABLET PO (09:39)
[2022-12-23] MEDS: ACETAMINOPHEN 325 MG TABLET 650 MG PO (09:40)
[2022-12-23] MEDS: hydroCHLOROthiazide 25 MG TABLET PO (09:40)
[2022-12-23] MEDS: MAGNESIUM OXIDE 200 MG TABLET PO (09:40)
[2022-12-23] MEDS: PANTOPRAZOLE 40 MG TABLET PO (09:41)
[2022-12-23] MEDS: lisinopriL 20 MG TABLET PO (09:41)
[2022-12-23] MEDS: ESCITALOPRAM OXALATE 10 MG TABLET PO (09:41)
--- NOTE | 2022-12-23 11:07 | PM.DS ---
DS: Admitting Diagnosis Discharge Date 12/23/22 Admitting Diagnosis nausea with emesis DS: Discharge Diagnosis Discharge Diagnosis (1) Intractable nausea and vomiting: Code(s): R11.2 - Nausea with vomiting, unspecified Status: Acute Assessment and Plan: NPO for ice chips only Trial of clear liquids and advanced diet as tolerated in the morning (2) Sinus bradycardia: Code(s): R00.1 - Bradycardia, unspecified Status: Acute Assessment and Plan: Continue to monitor (3) Headache: Qualifiers: Headache chronicity pattern: unspecified pattern Headache type: unspecified Intractability: intractable Qualified Code(s): R51.9 - Headache, unspecified Code(s): R51.9 - Headache, unspecified Status: Acute Assessment and Plan: Chronic headaches (4) Obstructive sleep apnea: Code(s): G47.33 - Obstructive sleep apnea (adult) (pediatric) Status: Chronic Assessment and Plan: Noncompliant with CPAP (5) Coronary artery disease: Code(s): I25.10 - Atherosclerotic heart disease of [place] coronary artery without angina pectoris Status: Acute Assessment and Plan: No chest pain (6) Urinary tract infection: Code(s): N39.0 - Urinary tract infection, site not specified Status: Acute Assessment and Plan: Started on Rocephin 12/21 Plan DVT prophylaxis with SCDs GI prophylaxis not indicated Code status full code DS: Summary Hospital Course Hospital Course: 76-year-old female with past medical history significant for multiple comorbidities is presenting with nausea and vomiting for 1 day and found to have a UTI. Urine culture came back E coli sensitive to ceftriaxone and fluoroquinolones. She received several doses of IV Rocephin and all symptoms resolved. She was transitioned to oral Levaquin to complete a 7 day course of antibiotics. Due to some intermittent nausea and patient request, she was also given a script for Phenergan. See above for details, review med rec as well. Time Spent with Patient Time attestation: Total time spent providing and/or coordinating discharge services: Exam Narrative: General: No acute distress, alert and oriented per baseline HEENT: Atraumatic, normocephalic, mucous membranes moist CV: Regular rate and rhythm, S1, S2 Lungs: Clear to auscultation bilaterally, no rales or crackles noted, no wheezes, good air entry Abdomen: Soft, nontender, nondistended Extremities: Normal to inspection Skin: No rashes noted, no lesions or wounds seen Psych: Euthymic, normal affect DS: Data Data Completed and Pending Labs on day of discharge: Labs from last 24 hours 12/23/22 12/23/22 09:07 09:07 WBC 7.2 RBC 4.45 Hgb 12.5 Hct 39.0 MCV 87.6 MCH 28.1 MCHC 32.1 RDW 13.6 Plt Count 208 MPV 10.7 H Immature Gran % (Auto) 0.3 Neut % (Auto) 67.6 Lymph % (Auto) 24.8 [place] % (Auto) 4.3 Eos % (Auto) 2.4 Baso % (Auto) 0.6 Lymph # (Auto) 1.79 [place] # (Auto) 0.3 Eos # (Auto) 0.2 Baso # (Auto) 0.0 Abs Immat Gran (auto) 0.02 Absolute Neuts (auto) 4.9 Absolute Nucleated RBC 0.0 Nucleated RBC % 0.0 Sodium 142 Potassium 3.4 Chloride 106 Carbon Dioxide 29 Anion Gap 7 L BUN 11 D Creatinine 0.60 L Estim Creat Clear Calc 72 Estimated GFR > 60 Glucose 143 H Calcium 9.0 Total Bilirubin 1.0 AST 24 ALT 22 Alkaline Phosphatase 100 Total Protein 7.0 Albumin 4.0 Discharge Plan Discharge Attending physician on discharge: Stephanie Recio Discharging Clinician: Stephanie Recio Patient Disposition: Home, Self-Care Activity: as tolerated Diet: as tolerated Patient Instructions: Antibiotic Form, Bradycardia (DC) Stand Alone Forms: General Discharge Information Follow-up/Referrals: Arsen,Sarika Reza MD [Primary Care Provider] - Discharge Medications: New prom
== END 2022-12-23 12:20 | disposition home or self-care (01) ==
LOC: ANHED 19:05 → ANHIMU 23:57
PROVIDERS: Emergency Medicine; Admitting Provider Internal Medicine; Emergency Provider Family Medicine; PCP Family Medicine; Visit Provider Student in an Organized Health Care Education/Training Program
DX: R11.2 Nausea with vomiting, unspecified (principal); R00.1 Bradycardia, unspecified; R51.9 Headache, unspecified; G47.33 Obstructive sleep apnea (adult) (pediatric); I25.10 Atherosclerotic heart disease of native coronary artery without angina pectoris; Z95.5 Presence of coronary angioplasty implant and graft; N39.0 Urinary tract infection, site not specified; B96.20 Unspecified Escherichia coli [E. coli] as the cause of diseases classified elsewhere; D64.9 Anemia, unspecified; F41.9 Anxiety disorder, unspecified; M19.90 Unspecified osteoarthritis, unspecified site; F32.A Depression, unspecified; E78.5 Hyperlipidemia, unspecified; K21.9 Gastro-esophageal reflux disease without esophagitis; K57.90 Diverticulosis of intestine, part unspecified, without perforation or abscess without bleeding; I67.2 Cerebral atherosclerosis; K58.9 Irritable bowel syndrome, unspecified; I44.7 Left bundle-branch block, unspecified; N28.1 Cyst of kidney, acquired; M81.0 Age-related osteoporosis without current pathological fracture; I47.1 Supraventricular tachycardia; Z90.49 Acquired absence of other specified parts of digestive tract; Z79.899 Other long term (current) drug therapy; Z82.49 Family history of ischemic heart disease and other diseases of the circulatory system; Z83.49 Family history of other endocrine, nutritional and metabolic diseases
CPT/HCPCS: 36415; 70450; 74177; 80048; 80053; 81001; 83690; 85025; 87077; 87086; 87186; 93005; 96361; 96365; 96372; 96375; 96376; 99285; A9270; G0378; J0696; J1170; J1885; J2405; J2550; J3030; J7030; Q9967

== ENCOUNTER 2023-07-27 13:08 | Emergency (ER) | payer MEDICARE, SELFPAY ==
--- NOTE | ~2023-07-27 | XR_ITS ---
EXAM: XR hip RT 2V w AP pelvis DATE: 07/27/2023 15:50 HISTORY: PAIN RT GROIN IN AM, WORSENING PAST 3 WKS . COMPARISON: None available. FINDINGS: Decreased mineralization. No fracture or dislocation. No lytic or blastic lesion. Joint sp aces are lumbar degenerative disc disease. Mild bilateral hip osteoarthritis. Pelvic and hip enthesop athy. Osteophyte/dystrophic calcification superior to the left greater trochanter. No erosion or wesley osteal change. Pelvic phleboliths. IMPRESSION: No acute osseous finding in the pelvis or right hip. Reviewed, dictated and finalized at [facility].
--- NOTE | ~2023-07-27 | CT_ITS ---
CT OF right hip EXAMINATION: CT hip RT wo con DATE: 07/27/2023 17:00 INDICATION: Right hip pain TECHNIQUE: Computed tomography (CT) of the right hip was performed without intravenous contrast. Auto mated exposure control and iterative reconstruction technique were employed. The dose-length product was 438.23 mGy-cm. COMPARISON: CT abdomen pelvis 12/21/2022 FINDINGS: Decreased bone mineralization. Mild-moderate right hip joint space narrowing. Mild right hi p osteophytosis. Scattered pelvic and hip enthesopathy. No fracture or dislocation. No lytic or blast ic lesion. Thickening and heterogeneity in the right hip abductor musculature. IMPRESSION: No acute osseous finding in the right hip. Right hip abductor muscle strain. Reviewed, dictated and finalized at location K.
--- NOTE | ~2023-07-27 | CT_ITS ---
EXAMINATION: CT lumbar spine wo con DATE: 07/27/2023 17:00 INDICATION: Low back pain . TECHNIQUE: Computed tomography (CT) of the lumbar spine was performed without intravenous contrast. A utomated exposure control and iterative reconstruction technique were employed. The dose-length produ ct was 753.97 mGy-cm. COMPARISON: CT abdomen pelvis 12/21/2022. FINDINGS: 5 nonrib-bearing lumbar-type vertebral bodies. Pedicles intact. Stable 6 mm anterolisthesis at L4-5. Multilevel mild and moderate degenerative disc disease in the lumbar spine. Severe facet sc lerosis/hypertrophy at L4-5 and L5-S1. No severe neural foraminal narrowing. Moderate central canal s tenosis at L3-4 and L4-5. IMPRESSION: No acute fracture or traumatic malalignment in the lumbar spine. Reviewed, dictated and finalized at location K.
[2023-07-27 13:12] VITALS: BP 150/66; PULSE 54; RESP 18; TEMP 36.2; O2SAT 98
[2023-07-27 15:54] VITALS: BP 152/79; PULSE 57; RESP 17; O2SAT 94
[2023-07-27] MEDS: ONDANSETRON INJ 4 MG/2 ML VIAL IV PUSH (16:17)
[2023-07-27] MEDS: ACETAMINOPHEN 500 MG TABLET 1000 MG PO (16:17)
[2023-07-27] MEDS: MORPHINE SULFATE (*CRX) 4 MG/ML INJ IV PUSH (16:18)
--- NOTE | 2023-07-27 17:56 | ED.LOWEXIN ---
HPI - Extremity Injury (Lower) General Chief Complaint: Extremity Injury, Lower Stated Complaint: right hip pain Time Seen by Provider: 07/27/23 15:31 History of Present Illness HPI Narrative: This is a 77-year-old female, with history of hypothyroidism, presenting to the emergency department complaining of right hip pain. The patient states each morning, she has right hip pain with sitting up. She typically sleeps on her left side. This morning however her pain was significantly worse before. She describes it as sharp, located over the right hip, radiating to the right knee. She is able to ambulate and denies loss of sensation in the groin, loss of bowel or bladder control or fevers. Related Data Home Medications Medication Instructions Recorded Confirmed oxybutynin chloride 5 mg tablet 5 mg PO TID 08/28/19 12/21/22 hydrochlorothiazide 25 mg tablet 25 mg PO QAM 09/28/20 12/21/22 carvedilol 3.125 mg tablet 3.125 mg PO BID 01/26/21 12/21/22 magnesium 200 mg tablet 200 mg PO DAILY 01/26/21 12/21/22 escitalopram oxalate 10 mg tablet 10 mg PO DAILY 02/22/21 12/21/22 Allergies Allergy/AdvReac Type Severity Reaction Status Date / Time codeine Allergy Unknown Vomiting, Verified 07/27/23 16:16 itching, swelling Review of Systems Review of Systems: CONSTITUTIONAL: Denies fever, chills, or sweats. CARDIOVASCULAR: Denies chest pain, palpitations, or edema. RESPIRATORY: Denies cough or dyspnea. GASTROINTESTINAL: Denies abdominal pain, nausea, vomiting, or diarrhea. GENITOURINARY: Denies dysuria or hematuria. SKIN: Denies rash or itching. MUSCULOSKELETAL: Right hip pain denies back pain, or myalgia. NEUROLOGIC: Denies headache, numbness, dizziness, or weakness. PSYCHIATRIC: Denies anxiety or depression. [facility] Past Medical History Medical History Anemia History of blood transfusion. Anxiety Arthritis Coronary artery disease Status post stent 2008. Negative stress test in 2012. No significant disease on [facility] in January 2018. Patient of Dr. Sharpe. Coronary artery disease Depression Dyslipidemia Finger fracture, left Gastric ulcer Gastroesophageal reflux disease History of blood transfusion Hypertension Irritable bowel syndrome Kidney stones Left bundle branch block Migraines Obstructive sleep apnea Osteoarthritis Osteoporosis Pancreatic cancer Status post Whipple. Paroxysmal supraventricular tachycardia Status post ablation in 2012. 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 Left heart catheterization was unremarkable. Diagnosed with stress-induced cardiomyopathy, EF 40-45%. Normal systolic function with an EF of 60 to 65% on echo in August 2020. Surgical History Surgical History History of arthroplasty of left knee (04/11/21) History of arthroscopy of both knees History of bilateral breast reduction surgery History of cardiac catheterization (2017) History of cardiac radiofrequency ablation For paroxysmal supraventricular tachycardia. History of cholecystectomy History of coronary artery stent placement (2008) History of hysterectomy Due to dysfunctional uterine bleeding. History of orthopedic surgery Right thumb pinning in April 2012. Bilateral foot surgery. History of tonsillectomy History of tubal ligation History of Whipple procedure Family History Family History Mother Colon cancer Heart disease Hyperlipidemia Grandparent Hypertension Father Unknown family medical history Social History Social History Social History: Ms. García is and lives in her own home in [place]. She has 3 grown sons and her middle son rece
[2023-07-27] MEDS: LIDOCAINE 5% PATCH 1 PATCH TRANSDERM (18:21)
== END 2023-07-27 18:38 | disposition home or self-care (01) ==
PROVIDERS: Emergency Provider Preventive Medicine Aerospace Medicine; PCP Family Medicine
DX: S76.011A Strain of muscle, fascia and tendon of right hip, initial encounter (principal); I25.10 Atherosclerotic heart disease of native coronary artery without angina pectoris; E78.5 Hyperlipidemia, unspecified; I10 Essential (primary) hypertension; E03.9 Hypothyroidism, unspecified; X58.XXXA Exposure to other specified factors, initial encounter
CPT/HCPCS: 72131; 73502; 73700; 96374; 96375; 99284; A9270; J2270; J2405

== ENCOUNTER 2023-12-10 05:29 | Emergency (ER) | payer MEDICARE, SELFPAY ==
[2023-12-10] VITALS (7 sets, daily range): BP systolic 112–154; BP diastolic 62–88; PULSE 43–52; RESP 16–19; TEMP 36.5–36.9; O2SAT 95–100
--- NOTE | ~2023-12-10 | XR_ITS ---
Portable chest x-ray Comparison: 05/04/2022 Clinical History: Chest pain Findings: Lungs are clear, without focal consolidation or pleural effusion. Cardiomediastinal silho uette is stable. Bones and soft tissues are unremarkable. Impression: Clear lungs. Reviewed, dictated and finalized at location . Impression: Clear lungs.
--- NOTE | 2023-12-10 05:42 | ECG_ITS ---
Measurements Intervals [place] Rate: 51 P: 71 MN: 204 QRS: 1 QRSD: 105 T: 32 QT: 457 QTc: 424 Interpretive Statements SINUS BRADYCARDIA WITH SINUS ARRHYTHMIA BASELINE ARTIFACT- I, II, III, AVR BORDERLINE ECG COMPARED TO ECG 12/21/2022 18:49:10 SINUS ARRHYTHMIA NOW PRESENT Electronically Signed On 12-10-2023 6:40:07 CDT by Stuart Austin D.O.
[2023-12-10 05:58] LABS: Basophils Percent Auto 0.4 % (0.2-1.2); Eosinophils Absolute Auto 0.2 K/mm3 (0-0.3); Eosinophils Percent Auto 2.4 % (0-4.4); Hematocrit 37.4 % (37.0-47.0); Hemoglobin 11.8 g/dL (12.0-15.0); Immature Granulocyte Absolute 0.02 K/mm3 (0.00-0.031); Immature Granulocyte Percent A 0.2 % (0-0.5); Lymphocytes Absolute Auto 1.87 K/mm3 (0.9-3.2); Lymphocytes Percent Auto 22.4 % (18.3-44.2); Mean Corpuscular HGB Conc 31.6 g/dl (32-36); Mean Corpuscular Hemoglobin 27.6 pg (26-34); Mean Corpuscular Volume 87.6 fl (80-100); Mean Platelet Volume 10.8 fl (7.4-10.4); Monocytes Absolute Auto 0.5 K/mm3 (0.1-0.6); Neutrophils Absolute Auto 5.7 K/mm3 (1.3-6.7); Neutrophils Percent Auto 68.6 % (45.5-73.1); Platelet Count Result 198 k/mm3 (150-375); Red Blood Count 4.27 M/mm3 (4.2-5.4); Red Cell Distribution Width 15.1 % (11.5-14.5); White Blood Count 8.4 K/mm3 (4.5-10.0)
--- NOTE | 2023-12-10 06:00 | ED.GENADULT ---
HPI - General Adult General Chief complaint: Chest Pain <Eulalio Rodríguez MD - Last Filed: 12/10/23 06:58> Stated complaint: CHEST PAIN/PRESSURE <Eulalio Rodríguez MD - Last Filed: 12/10/23 06:58> Time Seen by Provider: 12/10/23 05:51 <Eulalio Rodríguez MD - Last Filed: 12/10/23 06:58> History of Present Illness HPI narrative: patient is a 77-year-old female who presents emergency department with chief complaint of chest pain. The patient reports she woke up about 5:00 a.m. this morning started having pressure in her chest describes a constricting band in her upper abdomen lower chest. The patient reports that she has a history of atrial fibrillation and has episodes of bradycardia. Patient was given aspirin prior to arrival patient does report she has prior history PA <Eulalio Rodríguez MD - Last Filed: 12/10/23 06:58> Related Data Home medications: Home Medications Medication Instructions Recorded Confirmed oxybutynin chloride 5 mg tablet 5 mg PO TID 08/28/19 12/21/22 hydrochlorothiazide 25 mg tablet 25 mg PO QAM 09/28/20 12/21/22 carvedilol 3.125 mg tablet 3.125 mg PO BID 01/26/21 12/21/22 magnesium 200 mg tablet 200 mg PO DAILY 01/26/21 12/21/22 escitalopram oxalate 10 mg tablet 10 mg PO DAILY 02/22/21 12/21/22 <Eulalio Rodríguez MD - Last Filed: 12/10/23 06:58> Allergies/adverse reactions: Allergies Allergy/AdvReac Type Severity Reaction Status Date / Time codeine Allergy Unknown Vomiting, Verified 07/27/23 16:16 itching, swelling <Eulalio Rodríguez MD - Last Filed: 12/10/23 06:58> Review of Systems Review of Systems: A 10 system review of systems was completed on the patient and is negative except for what is stated in the HPI. Nursing and ancillary documentation was reviewed. <Eulalio Rodríguez MD - Last Filed: 12/10/23 06:58> [facility] Past Medical History Medical History: Medical History Anemia History of blood transfusion. Anxiety Arthritis Coronary artery disease Status post stent 2008. Negative stress test in 2012. No significant disease on [facility] in January 2018. Patient of Dr. Sharpe. Coronary artery disease Depression Dyslipidemia Finger fracture, left Gastric ulcer Gastroesophageal reflux disease History of blood transfusion Hypertension Irritable bowel syndrome Kidney stones Left bundle branch block Migraines Obstructive sleep apnea Osteoarthritis Osteoporosis Pancreatic cancer Status post Whipple. Paroxysmal supraventricular tachycardia Status post ablation in 2012. 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 Left heart catheterization was unremarkable. Diagnosed with stress-induced cardiomyopathy, EF 40-45%. Normal systolic function with an EF of 60 to 65% on echo in August 2020. <Eulalio Rodríguez MD - Last Filed: 12/10/23 06:58> Surgical History Surgical History: Surgical History History of arthroplasty of left knee (04/11/21) History of arthroscopy of both knees History of bilateral breast reduction surgery History of cardiac catheterization (2017) History of cardiac radiofrequency ablation For paroxysmal supraventricular tachycardia. History of cholecystectomy History of coronary artery stent placement (2008) History of hysterectomy Due to dysfunctional uterine bleeding. History of orthopedic surgery Right thumb pinning in April 2012. Bilateral foot surgery. History of tonsillectomy History of tubal ligation History of Whipple procedure <Eulalio Rodríguez MD - Last Filed: 12/10/23 06:58> Family History Family History: Family History (Reviewed 12/10/23 @ 06:05 by Eulalio Loomis
[2023-12-10 06:09] LABS: INR 0.9; Prothrombin Time 12.3 Seconds (11.1-14.7)
[2023-12-10 06:10] LABS: Partial Thromboplastin Time 27.6 SECONDS (22.3-36.8)
[2023-12-10 06:17] LABS: Alanine Aminotransferase 29 U/L (6-35); Alkaline Phosphatase 107 U/L (38-126); Anion Gap 5 mmol/L (8-16); Aspartate Amino Transferase 29 U/L (14-36); Bilirubin,Total 1.3 mg/dL (0.2-1.3); Blood Urea Nitrogen 17 mg/dL (7-17); Calcium 9.6 mg/dL (8.4-10.2); Carbon Dioxide 27 mmol/L (22-30); Chloride 107 mmol/L (98-107); Estimated CRCL calculation 66 ml/min; Estimated Glomerular Filt Rate > 60; Glucose 100 mg/dL (65-110); Lipase 24 U/L (23-300); Potassium 3.6 mmol/L (3.4-5.0); Sodium 139 mmol/L (137-145)
[2023-12-10 06:28] LABS: Troponin I < 0.012 ng/mL (0.000-0.034)
--- NOTE | 2023-12-10 07:20 | PC.NURSE ---
Assumed care of pt. Pt sitting up on stretcher, c/o chest pressure epigastric region rates 2. Pt reports My head feels like it is in a vice Rates pain 8. ED MD made aware
[2023-12-10 09:59] LABS: Troponin I < 0.012 ng/mL (0.000-0.034)
--- NOTE | 2023-12-10 15:14 | ECG_ITS ---
Measurements Intervals [place] Rate: 52 P: 58 [place]: 188 QRS: 4 QRSD: 114 T: 29 QT: 406 QTc: 380 Interpretive Statements SINUS BRADYCARDIA WITH MARKED SINUS ARRHYTHMIA INTRAVENTRICULAR CONDUCTION DELAY BORDERLINE ST ABNORMALITY- HIGH LATERAL LEADS BORDERLINE ECG COMPARED TO ECG 12/10/2023 05:47:12 INTRAVENTRICULAR CONDUCTION DELAY NOW PRESENT Electronically Signed On 12-10-2023 16:35:10 CDT by Stuart Austin D.O.
== END 2023-12-10 10:47 | disposition home or self-care (01) ==
PROVIDERS: Emergency Medicine; Emergency Provider Emergency Medicine; PCP Family Medicine
DX: R07.89 Other chest pain (principal); R00.1 Bradycardia, unspecified; I48.91 Unspecified atrial fibrillation; I25.10 Atherosclerotic heart disease of native coronary artery without angina pectoris; I10 Essential (primary) hypertension; E78.5 Hyperlipidemia, unspecified; D64.9 Anemia, unspecified; G47.33 Obstructive sleep apnea (adult) (pediatric); K58.9 Irritable bowel syndrome, unspecified; K21.9 Gastro-esophageal reflux disease without esophagitis; M81.0 Age-related osteoporosis without current pathological fracture; M19.90 Unspecified osteoarthritis, unspecified site; F41.9 Anxiety disorder, unspecified; F32.A Depression, unspecified; Z95.5 Presence of coronary angioplasty implant and graft; Z96.652 Presence of left artificial knee joint; Z85.07 Personal history of malignant neoplasm of pancreas; Z87.442 Personal history of urinary calculi; Z90.49 Acquired absence of other specified parts of digestive tract; Z90.710 Acquired absence of both cervix and uterus
CPT/HCPCS: 36415; 71045; 80053; 83690; 84484; 85025; 85610; 85730; 93005; 99284

== ENCOUNTER 2024-03-13 01:27 | Emergency (ER) | payer MEDICARE, SELFPAY ==
[2024-03-13] VITALS (22 sets, daily range): BP systolic 108–152; BP diastolic 63–80; PULSE 39–63; RESP 11–20; TEMP 36.6; O2SAT 91–100
--- NOTE | ~2024-03-13 | XR_ITS ---
Portable chest x-ray Comparison: 12/10/2023 Clinical History: Chest pain Findings: Lungs are clear, without focal consolidation or pleural effusion. Cardiomediastinal silho uette is stable. Bones and soft tissues are unremarkable. Impression: Normal chest. Reviewed, dictated and finalized at location . Impression: Normal chest.
--- NOTE | 2024-03-13 01:31 | ECG_ITS ---
Test Date: 2024-03-13 01:33:17 Measurements Intervals [place] Rate: 46 P: 47 NC: 182 QRS: -5 QRSD: 97 T: 74 QT: 451 QTc: 396 Interpretive Statements SINUS BRADYCARDIA POOR R-WAVE PROGRESSION BORDERLINE ECG No previous ECG available for comparison Electronically Signed On 03-13-2024 07:16:16 CDT by Edil Lyons M.D.
[2024-03-13 01:49] LABS: Basophils Absolute Auto 0.1 K/mm3 (0.0-0.1); Basophils Percent Auto 0.6 % (0.2-1.2); Eosinophils Absolute Auto 0.2 K/mm3 (0-0.3); Eosinophils Percent Auto 2.5 % (0-4.4); Hematocrit 34.9 % (37.0-47.0); Hemoglobin 10.9 g/dL (12.0-15.0); Immature Granulocyte Absolute 0.02 K/mm3 (0.00-0.031); Immature Granulocyte Percent A 0.2 % (0-0.5); Lymphocytes Absolute Auto 2.22 K/mm3 (0.9-3.2); Lymphocytes Percent Auto 24.9 % (18.3-44.2); Mean Corpuscular HGB Conc 31.2 g/dl (32-36); Mean Corpuscular Hemoglobin 27.6 pg (26-34); Mean Corpuscular Volume 88.4 fl (80-100); Mean Platelet Volume 10.9 fl (7.4-10.4); Monocytes Absolute Auto 0.6 K/mm3 (0.1-0.6); Monocytes Percent Auto 6.7 % (2.6-8.5); Neutrophils Absolute Auto 5.8 K/mm3 (1.3-6.7); Neutrophils Percent Auto 65.1 % (45.5-73.1); Platelet Count Result 204 k/mm3 (150-375); Red Blood Count 3.95 M/mm3 (4.2-5.4); White Blood Count 8.9 K/mm3 (4.5-10.0)
[2024-03-13 01:59] LABS: Prothrombin Time 13.4 Seconds (11.1-14.7)
[2024-03-13 02:04] LABS: Alanine Aminotransferase 26 U/L (6-35); Albumin Level 4.3 g/dL (3.5-5.1); Alkaline Phosphatase 95 U/L (38-126); Anion Gap 8 mmol/L (4-12); Aspartate Amino Transferase 29 U/L (14-36); Bilirubin,Total 1.4 mg/dL (0.2-1.3); Blood Urea Nitrogen 25 mg/dL (7-17); Calcium 9.7 mg/dL (8.4-10.2); Carbon Dioxide 26 mmol/L (22-30); Chloride 107 mmol/L (98-107); Estimated CRCL calculation 50 ml/min; Estimated Glomerular Filt Rate > 60; Glucose 114 mg/dL (65-110); Lipase 28 U/L (23-300); Potassium 3.4 mmol/L (3.4-5.0); Sodium 141 mmol/L (137-145)
[2024-03-13 02:15] LABS: Troponin I < 0.012 ng/mL (0.000-0.034)
--- NOTE | 2024-03-13 02:42 | ED.CHESTPAIN ---
HPI - Chest Pain General Chief Complaint: Chest Pain Stated Complaint: CHEST PAIN Time Seen by Provider: 03/13/24 01:29 History of Present Illness HPI narrative: Patient is a 78-year-old female who presents to the emergency department this evening complaining of substernal chest pain. Patient states that she took a nap on her catch this evening and around 10 p.m. woke up with some a chest pain. Patient admits to a history of coronary artery disease and states that she follows up with a rn internal medicine at least once per year. She also admits to a history of atrial fibrillation but states that she does not take any blood thinners for it. Patient states that she has been having this chest pain intermittently on and off for the past 3 months. Denies any fevers or chills at home, any nausea, vomiting, abdominal pain or any shortness of breath at this time. No additional symptoms or concerns. Related Data Home Medications Medication Instructions Recorded Confirmed oxybutynin chloride 5 mg tablet 5 mg PO TID 08/28/19 12/21/22 hydrochlorothiazide 25 mg tablet 25 mg PO QAM 09/28/20 12/21/22 carvedilol 3.125 mg tablet 3.125 mg PO BID 01/26/21 12/21/22 magnesium 200 mg tablet 200 mg PO DAILY 01/26/21 12/21/22 escitalopram oxalate 10 mg tablet 10 mg PO DAILY 02/22/21 12/21/22 Allergies Allergy/AdvReac Type Severity Reaction Status Date / Time codeine Allergy Unknown Vomiting, Verified 07/27/23 16:16 itching, swelling Review of Systems Review of Systems: All systems are reviewed and are negative unless stated otherwise in the HPI. [facility], [facility] Past Medical History Medical History Anemia History of blood transfusion. Anxiety Arthritis Coronary artery disease Status post stent 2008. Negative stress test in 2012. No significant disease on [facility] in January 2018. Patient of Dr. Sharpe. Coronary artery disease Depression Dyslipidemia Finger fracture, left Gastric ulcer Gastroesophageal reflux disease History of blood transfusion Hypertension Irritable bowel syndrome Kidney stones Left bundle branch block Migraines Obstructive sleep apnea Osteoarthritis Osteoporosis Pancreatic cancer Status post Whipple. Paroxysmal supraventricular tachycardia Status post ablation in 2012. 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 Left heart catheterization was unremarkable. Diagnosed with stress-induced cardiomyopathy, EF 40-45%. Normal systolic function with an EF of 60 to 65% on echo in August 2020. Surgical History Surgical History History of arthroplasty of left knee (04/11/21) History of arthroscopy of both knees History of bilateral breast reduction surgery History of cardiac catheterization (2017) History of cardiac radiofrequency ablation For paroxysmal supraventricular tachycardia. History of cholecystectomy History of coronary artery stent placement (2008) History of hysterectomy Due to dysfunctional uterine bleeding. History of orthopedic surgery Right thumb pinning in April 2012. Bilateral foot surgery. History of tonsillectomy History of tubal ligation History of Whipple procedure Family History Family History Mother Colon cancer Heart disease Hyperlipidemia Grandparent Hypertension Father Unknown family medical history Social History Social History Social History: Ms. García is and lives in her own home in [place]. She has 3 grown sons and her middle son recently moved here from [place] and he has been staying with her. She is independent in her daily activities and lives an active lifestyle. 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
--- NOTE | 2024-03-13 04:25 | ECG_ITS ---
Test Date: 2024-03-13 04:29:16 Measurements Intervals [place] Rate: 42 P: 61 SC: 197 QRS: 15 QRSD: 130 T: 72 QT: 470 QTc: 393 Interpretive Statements SINUS BRADYCARDIA POOR R-WAVE PROGRESSION NONSPECIFIC T-WAVE ABNORMALITY ABNORMAL ECG Compared to ECG 03/13/2024 01:33:17 NO SIGNIFICANT DIFFERENCE Electronically Signed On 03-13-2024 07:18:52 CDT by Edil Lyons M.D.
[2024-03-13 05:04] LABS: Troponin I < 0.012 ng/mL (0.000-0.034)
== END 2024-03-13 05:31 | disposition home or self-care (01) ==
PROVIDERS: Emergency Provider Emergency Medicine
DX: I25.10 Atherosclerotic heart disease of native coronary artery without angina pectoris (principal); E78.5 Hyperlipidemia, unspecified; K21.9 Gastro-esophageal reflux disease without esophagitis; K58.9 Irritable bowel syndrome, unspecified; G47.33 Obstructive sleep apnea (adult) (pediatric); F32.A Depression, unspecified; F41.9 Anxiety disorder, unspecified; Z95.5 Presence of coronary angioplasty implant and graft; Z96.652 Presence of left artificial knee joint; Z85.07 Personal history of malignant neoplasm of pancreas; Z86.2 Personal history of diseases of the blood and blood-forming organs and certain disorders involving the immune mechanism; Z87.442 Personal history of urinary calculi; Z90.49 Acquired absence of other specified parts of digestive tract; Z90.710 Acquired absence of both cervix and uterus; Z79.899 Other long term (current) drug therapy; R00.1 Bradycardia, unspecified; R94.31 Abnormal electrocardiogram [ECG] [EKG]
CPT/HCPCS: 36415; 71045; 80053; 83690; 83735; 84484; 85025; 85610; 85730; 93005; 99284